=== PATIENT | female | born 1930 | race Caucasian/White ===

== ENCOUNTER 2016-10-04 15:15 | Emergency (ER) | payer BC ==
[~2016-10-04] VITALS: Ht 162.6 cm; Wt 69.0 kg
[~2016-10-04 15:15] MED LIST: ACET-1311 PO; CHOL100010 PO; CLTP PO; CMD4 PO; DOXY100C76 PO; METO50TA7 PO; PRLSR20 PO; TRAM-10 PO; TRIATAB3 PO; compounded cream
[2016-10-04 15:18] VITALS: TEMP 36.5; Ht 162.6 cm; Wt 69.0 kg
[2016-10-04] MEDS ORDERED: CEFAZOLIN SOD 1000MG/55 ML D5W IV STA (15:27)
[2016-10-04] MEDS ORDERED: CHOL20009 PO (15:47)
[2016-10-04] MEDS ORDERED: METO50TA16 PO (15:47)
[2016-10-04] MEDS ORDERED: CALCTAB7 PO (15:47)
[2016-10-04] MEDS ORDERED: ACET-1256 PO (15:49)
[2016-10-04] MEDS ORDERED: FRS/40 PO (15:53)
[2016-10-04] MEDS ORDERED: POTA20TA16 PO (15:53)
[2016-10-04 15:54] LABS: BASO % 0.6 %; BASO ABS # 0.03 K/uL (0-0.2); COMPLETE YES; EOS % 1.3 %; IG% 0.2 %; LYMPH % 21.8 %; LYMPH ABS # 1.02 K/uL (1.2-3.4); MEAN CELL VOLUME 97.6 fL (80-100); MEAN CORPUSCULAR HEMOGLOBIN 31.7 pg (25-34); MEAN CORPUSCULAR HGB CONC 32.5 g/dl (32-36); MEAN PLATELET VOLUME 8.4 fL (7.4-10.4); MONO % 26.6 %; NEUT % 49.5 %; PLATELET COUNT 281 K/uL (130-400); WHITE BLOOD COUNT 4.67 K/uL (4.8-10.8)
[2016-10-04 16:11] LABS: BUN/CREATININE RATIO 21.9 (10-20); CALCIUM 9.1 mg/dl (8.5-10.1); CREATININE 0.58 mg/dl (0.60-1.20); POTASSIUM 3.7 mmol/L (3.5-5.1)
--- NOTE | 2016-10-04 16:35 | DIAGNOSTIC IMAGING REPORT ---
Venous Doppler left leg LEFT VENOUS DOPP LOWER EXT UNILAT CLINICAL HISTORY: Pain edema TECHNIQUE: Doppler ultrasound COMPARISON STUDY: 01/26/2016 FINDINGS: Normal study IMPRESSION: Normal study Electronically signed by: Blaine Toure M.D. 10/04/2016 4:33 PM Dictated Date/Time: 10/04/2016 4:33 PM
[2016-10-04] MEDS ORDERED: CEPH500C PO (16:50)
--- NOTE | 2016-10-04 16:51 | EMERGENCY ROOM VISIT NOTE ---
History Report prepared by Sorin: Denis Lopez Under the Supervision of: Dr. Gareth Fowler D.O. First contact with patient: 15:21 Chief Complaint: INFECTION Stated Complaint: WORSENING CELLULITIS L LEG W/ DRAINAGE History of Present Illness The patient is a 85 year old female who presents to the Emergency Room with complaints of a worsening infection that began a couple of weeks ago. She rates her current pain a 5/10 in severity. She has a history of cellulitis in the past , which she was prescribed Doxycycline before, which worked. A couple of weeks ago, she was diagnosed with cellulitis in her left leg. She was given 7 days of Doxycycline, which she finished last week. However, her cellulitis has begun to worsen and spread up her leg. She denies any other abnormal symptoms. Source of History: patient Onset: a couple of weeks ago Position: leg (left) Symptom Intensity: 5/10 Quality: burning Timing: worsening Note: She has erythema to her left leg. She denies any other abnormal symptoms. Review of Systems See HPI for pertinent positives & negatives. A total of 10 systems reviewed and were otherwise negative. Past Medical & Surgical Medical Problems: (1) Asthma (2) Atrial fibrillation (3) HTN (hypertension) Family History Omitted secondary to age. Social History Smoking Status: Never Smoker Smokeless Tobacco Use: No Alcohol Use: occasionally Drug Use: none Marital Status: Occupation Status: retired Current/Historical Medications Scheduled Calcium Carbonate-Vitamin D W/ (Caltrate 600 Plus), 1 TAB PO DAILY Cephalexin Monohydrate (Keflex), 500 MG PO QID Cholecalciferol (Vitamin D), 3,000 UNIT PO DAILY Furosemide (Lasix), 40 MG PO WK Metoprolol Tartrate (Lopressor) (Lopressor), 50 MG PO BID Omeprazole (Prilosec), 20 MG PO DAILY Potassium Ext Rel (Klor-Con), 20 MEQ PO WK Triamterene/Hctz (Triamterene/Hctz 37.5-25MG), 1 TAB PO QAM Warfarin Sod (Coumadin), 3-4 MG PO UD Scheduled PRN Acetaminophen (Tylenol), 1,000 MG PO TID PRN for Pain Tramadol (Ultram), 1 TAB PO TID PRN for Pain Allergies Coded Allergies: Iodinated Diagnostic Agents (Verified Allergy, Severe, SWOLLEN LEGS WITH REDDNESS AND ITCHING, 04/30/16) Clarithromycin (Unverified Allergy, Unknown, UNKNOWN, 04/30/16) Aspirin (Verified Adverse Reaction, Mild, HX GASTRIC ULCERS, 04/30/16) NSAIDs (Unverified Adverse Reaction, Unknown, History of gastric ulcers, 04/30/16) Physical Exam Vital Signs Date Time Temp Pulse Resp B/P Pulse Ox O2 Delivery O2 Flow Rate FiO2 10/04/16 15:18 36.5 78 16 131/80 95 Room Air Physical Exam CONSTITUTIONAL/VITAL SIGNS: Reviewed / noted above. GENERAL: Non-toxic in appearance. INTEGUMENTARY: Warm, dry, and Crown. HEAD: Normocephalic. EYES: without scleral icterus or trauma. ENT/OROPHARYNX: clear and moist. LYMPHADENOPATHY/NECK: Is supple without lymphadenopathy or meningismus. RESPIRATORY: Lungs clear and equal. CARDIOVASCULAR: Regular rate and rhythm. GI/ABDOMEN: Soft and nontender. No organomegaly or pulsatile mass. No rebound or guarding. Normal bowel sounds. EXTREMITIES: Warm and well perfused. Left lower extremity is edematous and erythematous from just below the knee to just above the ankle. BACK: No CVA tenderness. NEUROLOGICAL: Intact without focal deficits. PSYCHIATRIC: normal affect. MUSCULOSKELETAL: Normally developed with good muscle tone. Medical Decision & Procedures ER Provider Diagnostic Interpretation: Radiology results as stated below per my review and radiologist interpretation: Venous Doppler left leg LEFT VENOUS DOPP LOWER EXT UNILAT CLINICAL HISTORY: Pain edema TECHNIQUE: Doppler ultrasound COMPARISON STUDY: 01/26/2016 FINDINGS: Normal study IMPRESSION: Normal study Electronically signed by: Blaine Toure M.D. 10/04/2016 4:33 PM Dictated Date/Time: 10/04/2016 4:33 PM Laboratory Results 10/04/16 15:43 Red Blood Count 4.10, Mean Corpuscular Volume 97.6, Mean Corpuscular Hemoglobin 31.7, Mean Corpuscular Hemoglobin Concent 32.5, Mean Platelet Volume 8.4, Neutrophils (%) (Auto) 49.5, Lymphocytes (%) (Auto) 21.8, Monocytes (%) (Auto) 26.6, Eosinophils (%) (Auto) 1.3, Basophils (%) (Auto) 0.6, Neutrophils # (Auto ) 2.31, Lymphocytes # (Auto) 1.02, Monocytes # (Auto) 1.24, Eosinophils # (Auto ) 0.06, Basophils # (Auto) 0.03 10/04/16 15:43 Test 10/04/16 15:43 White Blood Count 4.67 K/uL (4.8-10.8) Red Blood Count 4.10 M/uL (4.2-5.4) Hemoglobin 13.0 g/dL (12.0-16.0) Hematocrit 40.0 % (37-47) Mean Corpuscular Volume 97.6 fL (80-100) Mean Corpuscular Hemoglobin 31.7 pg (25-34) Mean Corpuscular Hemoglobin Concent 32.5 g/dl (32-36) Platelet Count 281 K/uL (130-400) Mean Platelet Volume 8.4 fL (7.4-10.4) Neutrophils (%) (Auto) 49.5 % Lymphocytes (%) (Auto) 21.8 % Monocytes (%) (Auto) 26.6 % Eosinophils (%) (Auto) 1.3 % Basophils (%) (Auto) 0.6 % Neutrophils # (Auto) 2.31 K/uL (1.4-6.5) Lymphocytes # (Auto) 1.02 K/uL (1.2-3.4) Monocytes # (Auto) 1.24 K/uL (0.11-0.59) Eosinophils # (Auto) 0.06 K/uL (0-0.5) Basophils # (Auto) 0.03 K/uL (0-0.2) RDW Standard Deviation 53.1 fL (36.4-46.3) RDW Coefficient of Variation 14.9 % (11.5-14.5) Immature Granulocyte % (Auto) 0.2 % Immature Granulocyte # (Auto) 0.01 K/uL (0.00-0.02) Anion Gap 9.0 mmol/L (3-11) Est Creatinine Clear Calc Drug Dose 65.2 ml/min Estimated GFR () 96.1 Estimated GFR (Non- 82.9 BUN/Creatinine Ratio 21.9 (10-20) Calcium Level 9.1 mg/dl (8.5-10.1) Laboratory results as stated above per my review. Medications Administered Medications (Trade) Dose Ordered Sig/Tonya Route Start Time Stop Time Status Last Admin Dose Admin Cefazolin Sodium (Ancef 1000mg/55 ml D5W) 2,000 mg NOW STAT IV 10/04/16 15:27 10/04/16 15:30 DC 10/04/16 15:55 2,000 MG ED Course 1521: Previous medical records were reviewed. The patient was evaluated in room A12. A complete history and physical examination was performed. 1527: Ordered Cefazolin Sodium 2000 mg IV 1652: On reevaluation, the patient is resting. I discussed the results and findings with the patient. She verbalized agreement of the treatment plan. She was discharged home. Medical Decision Differential diagnosis: Etiologies such as cellulitis, abscess, MRSA infection, DVT, necrotizing fasciitis, dermatitis, drug eruption, as well as others were entertained.. This is an 85-year-old female who presents to the ED with a chief complaint of cellulitis of her left lower extremity. Details listed above. The patient states that she recently completed a course of doxycycline about a week or so ago. This was for the same infection. Her improved and then have recurred. The patient denies any other significant complaints at she denies any fever or chills. No nausea or vomiting. Ultrasound of her left lower extremity does not show any evidence of DVT. CBC is unremarkable, PRP is normal. The patient was told the results. She was given IV Ancef. The patient will be discharged on Keflex, per her wishes. She would like to try outpatient antibiotics at this time. She is felt to be stable for discharge and she will return if there is worsening. Impression Primary Impression: Cellulitis of left lower extremity Scribe Attestation The scribe's documentation has been prepared under my direction and personally reviewed by me in its entirety. I confirm that the note above accurately reflects all work, treatment, procedures, and medical decision making performed by me. Departure Information Dispostion Home / Self-Care Prescriptions Cephalexin Monohydrate (Keflex) 500 Mg Cap 500 MG PO QID, #40 CAP Prov: Gareth Fowler D.O. 10/04/16 Referrals Rodríguez Coy M.D. (PCP) Forms HOME CARE DOCUMENTATION FORM, IMPORTANT VISIT INFORMATION, WORK / SCHOOL INSTRUCTIONS Patient Instructions My [facility] Additional Instructions Keflex as prescribed. Return for significant worsening or new concerns. Follow-up with your doctor for further care and evaluation in 1-2 days. Return to the emergency department for worsening or new symptoms or any concerns. You have been examined and treated today on an emergency basis only. This is not a substitute for, or an effort to provide, complete comprehensive medical care. It is impossible to recognize and treat all injuries or illnesses in a single emergency department visit. It is therefore important that you follow up closely with your doctor. Call as soon as possible for an appointment.
[2016-10-04 17:13] VITALS: BP 130/71; PULSE 74; O2SAT 97
[2016-11-14] MEDS ORDERED: CEPH500C2 PO (09:48)
[2016-12-11] MEDS ORDERED: DCL/500 PO (15:02)
[2016-12-12] MEDS ORDERED: CEPH500C2 PO (08:09)
[2017-03-31] MEDS ORDERED: CEPH500C PO (11:00)
== END 2016-10-04 17:14 | disposition home or self-care (01) ==
LOC: C.EDB 15:16 → C.EDA 17:14
DX: L03.116 Cellulitis of left lower limb (principal); I48.91 Unspecified atrial fibrillation; I10 Essential (primary) hypertension; J45.909 Unspecified asthma, uncomplicated; Z79.01 Long term (current) use of anticoagulants; Z79.899 Other long term (current) drug therapy

== ENCOUNTER → 2016-12-06 | Outpatient (CLI) | payer BC ==
[~2016-12-06] MED LIST changes: +ACET-1256 PO; -ACET-1311 PO; +CALCTAB7 PO; +CEPH500C2 PO; -CHOL100010 PO; +CHOL20009 PO; -CLTP PO; +DCL/500 PO; -DOXY100C76 PO; +METO50TA16 PO; -METO50TA7 PO; -compounded cream
--- NOTE | 2016-12-06 15:30 | MAMMOGRAPHY REPORT ---
BILATERAL DIGITAL SCREENING MAMMOGRAM WITH CAD: 12/06/2016 CLINICAL HISTORY: Routine screening. TECHNIQUE: Bilateral CC, MLO and repeat left MLO views were obtained. Current study was also evaluat ed with a Computer Aided Detection (CAD) system. COMPARISON: Comparison is made to exams dated: 12/05/2015 mammogram, 12/01/2014 mammogram, 11/18/2013 ma mmogram, 10/05/2012 mammogram, 09/26/2011 mammogram, and 09/13/2010 mammogram - [facility] nter. BREAST COMPOSITION: There are scattered areas of fibroglandular density in both breasts. FINDINGS: The exam is suboptimal given the patient in a wheelchair and needing assistance from a [employer] product support technician during the imaging. There is an 8 mm nodular asymmetry in the lateral, middle one third of the right breast on the CC vie w, thought to project superiorly on the MLO view. Additional spot compression. This is views and po ssibly ultrasound are recommended. A grouping of faint microcalcifications and associated asymmetry in the lower inner quadrant of the r ight breast, warranting additional spot magnification views. No other suspicious mass, architectural distortion or cluster of microcalcifications is seen bilatera lly. IMPRESSION: ACR BI-RADS CATEGORY 0: INCOMPLETE EVALUATION: NEED ADDITIONAL IMAGING EVALUATION The 8 mm nodular asymmetry in the lateral right breast, and faint punctate grouped microcalcification s in the medial right breast need additional imaging evaluation. The patient will be called to schedule an appointment. Approximately 10% of breast cancers are not detected with mammography. A negative mammographic report should not delay biopsy if a clinically suggestive mass is present. Kirsten Fernandez M.D. ay/:12/06/2016 14:12:20 Attending Technologist: Marlin Rueda, [facility] Ceramic Sprayer: Catarino NAIR(R)(M), [facility] letter sent: Addl Imaging 0 BI-RADS Code: ACR BI-RADS Category 0: Incomplete Evaluation: Need Additional Imaging Evaluation
== END | disposition home or self-care (01) ==
LOC: C.MAMM 13:30
PROVIDERS: ATTEND Obstetrics & Gynecology
DX: Z12.31 Encounter for screening mammogram for malignant neoplasm of breast (principal); Z51.81 Encounter for therapeutic drug level monitoring; Z79.01 Long term (current) use of anticoagulants; I10 Essential (primary) hypertension; I48.2 Chronic atrial fibrillation; M54.16 Radiculopathy, lumbar region; I87.2 Venous insufficiency (chronic) (peripheral); E55.9 Vitamin D deficiency, unspecified

== ENCOUNTER → 2016-12-06 | Outpatient (CLI) | payer BC ==
[2016-12-06 16:51] LABS: BASO % 0.3 %; BASO ABS # 0.02 K/uL (0-0.2); COMPLETE YES; HEMATOCRIT 40.7 % (37-47); IG% 0.2 %; LYMPH % 14.2 %; LYMPH ABS # 0.82 K/uL (1.2-3.4); MEAN CELL VOLUME 98.8 fL (80-100); MEAN CORPUSCULAR HEMOGLOBIN 31.3 pg (25-34); MEAN CORPUSCULAR HGB CONC 31.7 g/dl (32-36); MEAN PLATELET VOLUME 9.2 fL (7.4-10.4); MONO % 24.4 %; NEUT % 59.9 %; PLATELET COUNT 262 K/uL (130-400); RED BLOOD COUNT 4.12 M/uL (4.2-5.4); WHITE BLOOD COUNT 5.77 K/uL (4.8-10.8)
[2016-12-06 17:04] LABS: ALT/SGPT 25 U/L (12-78); AST/SGOT 21 U/L (15-37); BLOOD UREA NITROGEN 12 mg/dl (7-18); CALCIUM 9.2 mg/dl (8.5-10.1); CARBON DIOXIDE 27 mmol/L (21-32); CHLORIDE 104 mmol/L (98-107); CREATININE 0.56 mg/dl (0.60-1.20); GLUCOSE 98 mg/dl (70-99); POTASSIUM 3.7 mmol/L (3.5-5.1); SODIUM 138 mmol/L (136-145)
[2016-12-06 17:25] LABS: ALB/GLOB RATIO 1.1 (0.9-2); ALKALINE PHOSPHATASE 124 U/L (45-117)
== END | disposition home or self-care (01) ==
LOC: C.LABBC 14:34
PROVIDERS: ATTEND Internal Medicine Geriatric Medicine
DX: I10 Essential (primary) hypertension (principal); I48.2 Chronic atrial fibrillation; M54.16 Radiculopathy, lumbar region; I87.2 Venous insufficiency (chronic) (peripheral); E55.9 Vitamin D deficiency, unspecified

== ENCOUNTER → 2016-12-27 | Outpatient (CLI) | payer BC ==
[~2016-12-27] MED LIST changes: -CEPH500C2 PO
--- NOTE | 2016-12-27 15:34 | MAMMOGRAPHY REPORT ---
UNILATERAL RIGHT DIGITAL DIAGNOSTIC MAMMOGRAM TOMOSYNTHESIS: 12/27/2016 CLINICAL HISTORY: Callback from screening mammogram for right breast calcifications and right breast asymmetry. TECHNIQUE: Breast tomosynthesis in addition to standard 2D mammography was performed. Spot compress ion right CC and MLO 2-D and tomosynthesis images and spot magnification right cc and ML views were o btained. COMPARISON: Comparison is made to exams dated: 12/06/2016 mammogram, 12/05/2015 mammogram, 12/01/2014 m ammogram, 11/18/2013 mammogram, 10/05/2012 mammogram, and 09/26/2011 mammogram - [facility] nter. BREAST COMPOSITION: There are scattered areas of fibroglandular density in the right breast. FINDINGS: The previously described nodular asymmetry seen within the lateral right breast effaces to a baseline appearance on the additional spot compression views, and has the appearance of normal fibr oglandular tissue on the tomosynthesis images. No suspicious mass or architectural distortion is not ed on the additional images. Spot magnification views demonstrate grouped faint calcifications in th e right lower inner quadrant. The calcifications do not appear significantly changed compared to spo t magnification views dated 09/26/2011 and 04/01/2011 and given the long-term stability, the calcifica tions are considered benign. No new or increasing calcifications are noted in this region on the add itional views. IMPRESSION: ACR BI-RADS CATEGORY 2: BENIGN The right lateral breast asymmetry effaces on the additional views, and is benign and felt to represe nt normal fibroglandular tissue. Grouped calcifications in the right lower inner quadrant are stable dating back to the 2011 and 2010 exams, and are considered benign given long-term stability. There is no mammographic evidence of malignancy. A 1 year screening mammogram is recommended. The patient has been verbally notified of the results. Approximately 10% of breast cancers are not detected with mammography. A negative mammographic report should not delay biopsy if a clinically suggestive mass is present. Lyndsey Cifuentes M.D. /:12/27/2016 14:38:13 Film Inspector: Danitza Galarza RT(R)(Dai), [facility] letter sent: Normal 1/2 BI-RADS Code: ACR BI-RADS Category 2: Benign
== END | disposition home or self-care (01) ==
LOC: C.MAMM 13:51
PROVIDERS: ATTEND Obstetrics & Gynecology
DX: N64.9 Disorder of breast, unspecified (principal); R92.0 Mammographic microcalcification found on diagnostic imaging of breast

== ENCOUNTER → 2017-02-05 | Outpatient (CLI) | payer BC ==
[2017-02-05 17:15] LABS: HEMATOCRIT 42.1 % (37-47); MEAN CELL VOLUME 96.8 fL (80-100); MEAN CORPUSCULAR HEMOGLOBIN 29.4 pg (25-34); MEAN CORPUSCULAR HGB CONC 30.4 g/dl (32-36); MEAN PLATELET VOLUME 9.2 fL (7.4-10.4); PLATELET COUNT 302 K/uL (130-400); RED BLOOD COUNT 4.35 M/uL (4.2-5.4); WHITE BLOOD COUNT 4.71 K/uL (4.8-10.8)
[2017-02-05 17:30] LABS: BLOOD UREA NITROGEN 13 mg/dl (7-18); BUN/CREATININE RATIO 23.5 (10-20); CALCIUM 9.1 mg/dl (8.5-10.1); CARBON DIOXIDE 29 mmol/L (21-32); CHLORIDE 104 mmol/L (98-107); CREATININE 0.54 mg/dl (0.60-1.20); GLUCOSE 119 mg/dl (70-99); POTASSIUM 3.6 mmol/L (3.5-5.1); SODIUM 138 mmol/L (136-145)
== END | disposition home or self-care (01) ==
LOC: C.LABBC 14:51
PROVIDERS: ATTEND Internal Medicine Interventional Cardiology
DX: Z01.818 Encounter for other preprocedural examination (principal); Z51.81 Encounter for therapeutic drug level monitoring; Z79.01 Long term (current) use of anticoagulants

== ENCOUNTER 2017-02-19 07:36 | Day surgery (SDC) | payer BC ==
[~2017-02-19] VITALS: Ht 160 cm; Wt 66.0 kg
[2017-02-19] MEDS ORDERED: LIDOCAINE/EPINEPHRINE 1% INJ 50 ML VIAL ONE (08:12)
[2017-02-19] MEDS ORDERED: LIDOCAINE HCL 1% 20 ML VIAL ONE (08:12)
[2017-02-19] MEDS ORDERED: NURSING VERBAL MED ORDER ONE (08:45)
[2017-02-19 08:46] VITALS: BP 171/78; PULSE 67; TEMP 36.8; O2SAT 96; Ht 160 cm; Wt 66.0 kg
--- NOTE | 2017-02-19 09:16 | Procedure Note ---
Pre-Mod Sedation Assessment General Date of Moderate Sedation: Feb 19, 2017. Vital Signs: Vital Signs Past 12 Hours Date Time Temp Pulse Resp B/P (MAP) Pulse Ox O2 Delivery O2 Flow Rate FiO2 02/19/17 08:46 36.8 67 20 171/78 (109) 96 Room Air Review Cardiovascular: regular rate, rhythm, no edema Abdomen: normal bowel sounds, non tender Lungs: chest non-tender, lungs clear Airway Class: III Pre-Sedation Airway Assessment Oral Cavity: WNL Able to Visualize Vocal Cords: No Short Thick Neck: No Hx of Sleep Apnea: No Smoking Status: Never Smoker Mallampati Classification: Class III ASA Classification: Class II Procedure Planning Contraindications-for Mod Sed: None Yes Notes The planned sedation has been discussed with the patient and consent obtained. I have identified the patient, determined the appropriateness of sedation and have assessed the patient immediately prior to the procedure. All medicine(s) and interventions are by my order.
--- NOTE | 2017-02-19 09:19 | History & Physical Bridge Note ---
H&P Re-Evaluation Bridge Note: I have examined the patient, reviewed the History & Physical and in the interval since the performance of the History & Physical I have noted the following changes of clinical significance: No changes noted
[2017-02-19 09:32] VITALS: BP 171/78; PULSE 67; TEMP 36.8; O2SAT 96
[2017-02-19] MEDS ORDERED: LIDOCAINE HCL 1% 20 ML VIAL INJ ONE (10:26)
[2017-02-19] MEDS ORDERED: ORM MISCELLANEOUS MED XX ONE (10:42)
--- NOTE | 2017-02-19 10:43 | Procedure Note ---
Post-Mod Sedation Assessment General Date of Moderate Sedation Feb 19, 2017. Vital Signs: Vital Signs Past 12 Hours Date Time Temp Pulse Resp B/P (MAP) Pulse Ox O2 Delivery O2 Flow Rate FiO2 02/19/17 09:32 36.8 67 20 171/78 96 Room Air 02/19/17 08:46 36.8 67 20 171/78 (109) 96 Room Air Review - Discharge Criteria Vital Signs Stable: Yes Alert/Oriented/Conversant: Yes Returned to Baseline Mental St: Yes Nausea Absent/Minimal: Yes Pain/Discomfort/Absent/Minimal: Yes Normal/Baseline Respirations: Yes Active Bleeding?: No Pt Received D/C Instructions: Yes Prescriptions Given: None Specific Proced. D/C Criteria Distal Pulses Present (Cardiac: N/A Groin site assessed-Card Cath: N/A Voided Prior To Discharge: N/A Discharged Patients Adult Escort/Transportation: Yes
[2017-02-19] MEDS ORDERED: SODIUM CHLORIDE 0.9% 1000ML 1,000 ML IV SCH (10:45)
--- NOTE | 2017-02-19 10:50 | [facility] Operative Report ---
Operative Report Operative Date Feb 19, 2017. Pre-Operative Diagnosis Venous Insufficiency Post-Operative Diagnosis Same Procedure(s) Performed Left Leg Small Saphenous Vein Radiofrequency Ablation Surgeon Chinmay Plastic Fabricator Surgeon(s) None Estimated Blood Loss 2 Findings Dilated Left SSV Specimens None Drains None Anesthesia Local Complication(s) None Disposition Recovery Room / PACU Indications Venous insufficiency/Venous ulcerations Description of Procedure US guided access Left SSV above the ankle. Catheter inserted, positioned below the knee. SSV/popliteal junction above the knee. Tumescent injected. 1:40, 5 cycles of RFA Left SSV. No complications. Patient tolerated well. US confirmed no DVT post procedure. I attest to the content of the Intraoperative Record and any orders documented therein. Any exceptions are noted below.
--- NOTE | 2017-02-19 10:55 | Discharge Instructions ---
Discharge Instructions Procedure Procedure Date: Feb 19, 2017. Reason for Visit: Venous Insufficiency. Discharge Discharge Date: Feb 19, 2017. Discharge Diagnosis: Venous Insufficiency Last Recorded Wt (Kilograms): 66 Anesthesia Post Anesthesia Instructions: If you have had General Anesthesia or IV Sedation: * Do not drive today. * Resume driving when surgeon permits. * Do not make important decisions or sign legal documents today. * Call surgeon for: 1. Temperature elevations greater than 101 degrees F. 2. Uncontrollable pain. 3. Excessive bleeding. 4. Persistent nausea and vomiting. 5. Medication intolerance (nausea, vomiting or rash). * For nausea and vomiting use only clear liquids such as: tea, soda, bouillon until nausea subsides, then gradually increase diet as tolerated. * If you have any concerns or questions, call your surgeon's office. If physician is unavailable and it is an emergency, call 911 or go to the nearest emergency room. Instructions Activity Recommendations: limitations as noted below Recommended Home Diet: resume previous diet Allergies: Coded Allergies: Iodinated Diagnostic Agents (Verified Allergy, Severe, SWOLLEN LEGS WITH REDDNESS AND ITCHING, 02/19/17) Clarithromycin (Unverified Allergy, Unknown, UNKNOWN, 02/19/17) Aspirin (Verified Adverse Reaction, Mild, HX GASTRIC ULCERS, 02/19/17) NSAIDs (Unverified Adverse Reaction, Unknown, History of gastric ulcers, 02/19/17) Follow Up Additional Instructions: Follow instruction received from Dr. Moy' office Follow up Ultrasound as scheduled. BRIANNE wrap until ultrasound Compression stockings/wound care dressings post ultrasound Any severe pain, present to the emergency room concerned about DVT. Follow-up with: As scheduled Chhaya Alston Recommendations: Call your doctor if: * Temperature above 101 degrees * Pain not relieved by pain medicine ordered * There is increased drainage or redness from any incision * You have any unanswered questions or concerns. Your Doctors Instructions noted above were prepared by provider Vinicius Moy. Patient Signature Section: Patient Instructions Signature Page Linh Roy Patient (or Guardian) Signature/Date: I have read and understand the instructions given to me by my caregivers. Caregiver/RN/Doctor Signature/Date: The above-named patient and/or guardian has received patient instructions on this date. + Original Patient Signature Page (only) stays with chart. Please make copy for patient.
[2017-02-19 11:00] VITALS: BP 144/77; PULSE 79; TEMP 36.6; O2SAT 98
[2017-02-19 11:30] VITALS: BP 143/67; PULSE 78; O2SAT 93
[2017-02-19 12:05] VITALS: BP 163/72; PULSE 84; TEMP 37; O2SAT 99
== END 2017-02-19 12:15 | disposition home or self-care (01) ==
LOC: C.ACU 07:36
PROVIDERS: ATTEND Internal Medicine Interventional Cardiology
DX: I87.2 Venous insufficiency (chronic) (peripheral) (principal); L03.116 Cellulitis of left lower limb; I83.029 Varicose veins of left lower extremity with ulcer of unspecified site; R60.0 Localized edema; I48.2 Chronic atrial fibrillation; J45.909 Unspecified asthma, uncomplicated; I10 Essential (primary) hypertension; K21.9 Gastro-esophageal reflux disease without esophagitis; M19.90 Unspecified osteoarthritis, unspecified site; Z79.01 Long term (current) use of anticoagulants; Z98.890 Other specified postprocedural states; Z79.899 Other long term (current) drug therapy; Z96.649 Presence of unspecified artificial hip joint; Z90.89 Acquired absence of other organs; Z90.710 Acquired absence of both cervix and uterus

== ENCOUNTER → 2017-05-21 | Outpatient (CLI) | payer BC ==
[~2017-05-21] MED LIST changes: +AZIT-57 PO; +CALCCAP7 PO; -CALCTAB7 PO; +CEPH500C PO; -DCL/500 PO; +FRS/40 PO; +KFL500 PO; +LEVA45AE INH; +LPR25 PO; +LSX20 PO; +MCRK20 PO; +METO25TA56 PO; +POTA-639 PO; +PRD10 PO; +TRAMADOL ER PO; +WARF3TAB6 PO
[2017-05-21 17:32] LABS: BASO % 0.5 %; BASO ABS # 0.02 K/uL (0-0.2); EOS % 1.1 %; EOS ABS # 0.04 K/uL (0-0.5); HEMATOCRIT 38.7 % (37-47); HEMOGLOBIN 12.7 g/dL (12.0-16.0); IG# 0.02 K/uL (0.00-0.02); LYMPH % 27.6 %; LYMPH ABS # 1.05 K/uL (1.2-3.4); MEAN CELL VOLUME 96.8 fL (80-100); MEAN CORPUSCULAR HEMOGLOBIN 31.8 pg (25-34); MEAN CORPUSCULAR HGB CONC 32.8 g/dl (32-36); MEAN PLATELET VOLUME 9.2 fL (7.4-10.4); MONO % 22.1 %; MONO ABS # 0.84 K/uL (0.11-0.59); NEUT % 48.2 %; NEUT ABS # 1.83 K/uL (1.4-6.5); PLATELET COUNT 219 K/uL (130-400); RED CELL DISTRIBUTION WIDTH CV 14.8 % (11.5-14.5); RED CELL DISTRIBUTION WIDTH SD 52.9 fL (36.4-46.3)
[2017-05-21 17:47] LABS: ALBUMIN 3.5 gm/dl (3.4-5.0); ALT/SGPT 32 U/L (12-78); AST/SGOT 30 U/L (15-37); BLOOD UREA NITROGEN 16 mg/dl (7-18); CALCIUM 8.9 mg/dl (8.5-10.1); CARBON DIOXIDE 30 mmol/L (21-32); CREATININE 0.56 mg/dl (0.60-1.20); GLUCOSE 87 mg/dl (70-99); POTASSIUM 3.8 mmol/L (3.5-5.1); SODIUM 136 mmol/L (136-145)
[2017-05-21 17:58] LABS: ALKALINE PHOSPHATASE 122 U/L (45-117); TOTAL PROTEIN 7.2 gm/dl (6.4-8.2)
== END | disposition home or self-care (01) ==
LOC: C.LABBC 13:46
PROVIDERS: ATTEND Internal Medicine Geriatric Medicine
DX: E55.9 Vitamin D deficiency, unspecified (principal); I10 Essential (primary) hypertension; I48.2 Chronic atrial fibrillation; M81.0 Age-related osteoporosis without current pathological fracture; R74.8 Abnormal levels of other serum enzymes; Z51.81 Encounter for therapeutic drug level monitoring; Z79.01 Long term (current) use of anticoagulants

== ENCOUNTER → 2017-06-30 | Outpatient (CLI) | payer BC ==
[~2017-06-30] MED LIST changes: -FRS/40 PO; -KFL500 PO; -METO25TA56 PO; -POTA-639 PO; -TRAMADOL ER PO; -WARF3TAB6 PO
--- NOTE | 2017-06-30 15:49 | DIAGNOSTIC IMAGING REPORT ---
R WRIST MIN 3 VIEWS ROUTINE, HAND MIN 3 VIEWS ROUTINE HISTORY: 86 years-old Female WRIST PAIN acute right hand and wrist pain COMPARISON: None available TECHNIQUE: 4 views of the right wrist and 3 views of the right hand FINDINGS: WRIST: The bones appear moderately demineralized. 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 There is mild soft tissue swelling about the wrist without opaque foreign body, definite acute fracture or subluxation. HAND: There is at least moderate metacarpal phalangeal degenerative changes noted with severe distal interphalangeal degenerative changes and bone demineralization. There is no acute fracture or subluxation identified. IMPRESSION: 1. Demineralized appearance of the bones without acute fracture or dislocation identified. 2. Multifocal degenerative changes of the hand and wrist. 3. Mild dorsal wrist soft tissue swelling. The above report was generated using voice recognition software. It may contain grammatical, syntax or spelling errors. Electronically signed by: Miguel A Guzman M.D. 06/30/2017 3:48 PM Dictated Date/Time: 06/30/2017 3:44 PM
== END | disposition home or self-care (01) ==
LOC: C.RADBC 15:28
PROVIDERS: ATTEND Internal Medicine Geriatric Medicine
DX: M25.531 Pain in right wrist (principal)

== ENCOUNTER 2017-07-06 15:44 | Inpatient (IN) | payer BC, OTHER ==
[~2017-07-06] VITALS: Ht 160 cm; Wt 63.7 kg
[~2017-07-06 15:44] MED LIST changes: -AZIT-57 PO; -CALCCAP7 PO; -LEVA45AE INH; -LPR25 PO; -LSX20 PO; -MCRK20 PO; -PRD10 PO
[2017-07-06] MEDS ORDERED: ALBUT/IPRATROP 3MG/0.5MG NEB 3 ML VIAL INH STA (15:58)
--- NOTE | 2017-07-06 16:14 | EMERGENCY ROOM VISIT NOTE ---
History Report prepared by Sorin: Terra Lamas Under the Supervision of: Dr. Jozef Blakely D.O. First contact with patient: 15:53 Chief Complaint: SHORTNESS OF BREATH Stated Complaint: SOB,COUGH,WHEEZING Nursing Triage Summary: Pt presents with caregiver. Pt reports prod cough for "several days that got worse last night. I couldn't lay down without coughing." SOB. Weak. Caregiver states had the flu 3 weeks ago and is currently hospitalized here. History of Present Illness The patient is an 86 year old female who presents to the Emergency Room with complaints of persistent shortness of breath since yesterday. She states that she developed a cough several days ago and began experiencing shortness of breath over the last day. Per caregiver, the patient notified her PCP and was advised to come to the ED. She does not wear at home oxygen. She is taking Tramadol 100mg ER orally. She has baseline leg swelling and denies any new swelling. She has had breathing difficulties in the past due to bronchitis. She denies any history of COPD or smoking. She has a history of atrial fibrillation. She takes Coumadin. She sprained her right wrist and has a wrap on it. She received the flu shot this season. She denies any fevers, chest pain , or abdominal pain. Source of History: patient, caregiver Onset: since yesterday Position: other (global ) Quality: other (shortness of breath) Timing: other (persistent) Associated Symptoms: No fevers, No chest pain, No abdominal pain Review of Systems See HPI for pertinent positives & negatives. A total of 10 systems reviewed and were otherwise negative. Past Medical & Surgical Medical Problems: (1) Asthma (2) Atrial fibrillation (3) Bronchitis (4) HTN (hypertension) (5) Shortness of breath Surgical Problems: (1) History of cholecystectomy Family History Cancer Gallbladder disease Heart disease Hypertension No pertinent family history Social History Smoking Status: Never Smoker Smokeless Tobacco Use: No Alcohol Use: occasionally Drug Use: none Marital Status: Housing Status: lives with significant other, other (has home health assistance ) Occupation Status: retired Current/Historical Medications Scheduled Calcium Carbonate-Vitamin D (Calcium Plus Vitamin D), 2 TAB PO DAILY Cholecalciferol (Vitamin D), 3,000 UNIT PO DAILY Metoprolol Tartrate (Lopressor) (Lopressor), 50 MG PO BID Omeprazole (Prilosec), 20 MG PO DAILY Tramadol (Ultram), 1 TAB PO DAILY Triamterene/Hctz (Triamterene/Hctz 37.5-25MG), 1 TAB PO QAM Warfarin Sod (Coumadin), 4-5 MG PO UD Scheduled PRN Acetaminophen (Tylenol), 1,000 MG PO TID PRN for Pain Allergies Coded Allergies: Iodinated Diagnostic Agents (Verified Allergy, Severe, SWOLLEN LEGS WITH REDDNESS AND ITCHING, 07/06/17) Clarithromycin (Unverified Allergy, Unknown, UNKNOWN, 07/06/17) Aspirin (Verified Adverse Reaction, Mild, HX GASTRIC ULCERS, 07/06/17) NSAIDs (Unverified Adverse Reaction, Unknown, History of gastric ulcers, ) Physical Exam Vital Signs Date Time Temp Pulse Resp B/P (MAP) Pulse Ox O2 Delivery O2 Flow Rate FiO2 07/06/17 16:34 120 18 158/87 92 Room Air 07/06/17 16:28 121 07/06/17 15:52 90 Room Air 07/06/17 15:49 36.9 128 22 148/84 90 Room Air Physical Exam GENERAL: Patient is awake, alert, and in no acute distress. Patient is resting and is anxious-appearing. EYES: The conjunctivae are clear. The pupils are round and reactive. EARS, NOSE, MOUTH AND THROAT: The nose is without any evidence of any deformity. Mucous membranes are moist tongue is midline NECK: The neck is nontender and supple. RESPIRATORY: Breath sounds diminished throughout, left greater than right. Rales of both upper lung faustin. Significant tachypnea and conversational dyspnea noted. CARDIOVASCULAR: Tachycardic rate and irregular rhythm noted there no definite murmurs noted to auscultation. GASTROINTESTINAL: The abdomen is soft. Bowel sounds are present in all quadrants. Abdomen is nontender MUSCULOSKELETAL/EXTREMITIES: There is no evidence of gross deformity full range of motion is noted in the hips and shoulders. SKIN: Trace pedal edema bilaterally. NEUROLOGIC: Patient is awake alert and oriented x3 Medical Decision & Procedures ER Provider Diagnostic Interpretation: Radiology results as stated below per my review and radiologist interpretation: CHEST ONE VIEW PORTABLE HISTORY: Sepsis COMPARISON: None. FINDINGS: No pneumothorax. No pleural effusions. Diffuse interstitial thickening. The heart is moderately enlarged. Degenerative changes within the shoulders. IMPRESSION: Moderate cardiomegaly. Mild interstitial thickening which may be chronic or could be due to mild congestive change. Electronically signed by: Zenon Ji M.D. 07/06/2017 4:35 PM Dictated Date/Time: 07/06/2017 4:15 PM Laboratory Results 07/06/17 16:15 Red Blood Count 4.24, Mean Corpuscular Volume 96.0, Mean Corpuscular Hemoglobin 31.6, Mean Corpuscular Hemoglobin Concent 32.9, Mean Platelet Volume 8.9, Neutrophils (%) (Auto) 50.3, Lymphocytes (%) (Auto) 24.5, Monocytes (%) (Auto) 22.5, Eosinophils (%) (Auto) 1.6, Basophils (%) (Auto) 0.7, Neutrophils # (Auto ) 2.26, Lymphocytes # (Auto) 1.10, Monocytes # (Auto) 1.01, Eosinophils # (Auto ) 0.07, Basophils # (Auto) 0.03 Test 07/06/17 16:05 07/06/17 16:15 07/06/17 16:18 07/06/17 16:21 Influenza Type A Antigen Neg for Influ A (NEG) Influenza Type B Antigen Neg for Influ B (NEG) White Blood Count 4.49 K/uL (4.8-10.8) Red Blood Count 4.24 M/uL (4.2-5.4) Hemoglobin 13.4 g/dL (12.0-16.0) Hematocrit 40.7 % (37-47) Mean Corpuscular Volume 96.0 fL (80-100) Mean Corpuscular Hemoglobin 31.6 pg (25-34) Mean Corpuscular Hemoglobin Concent 32.9 g/dl (32-36) Platelet Count 239 K/uL (130-400) Mean Platelet Volume 8.9 fL (7.4-10.4) Neutrophils (%) (Auto) 50.3 % Lymphocytes (%) (Auto) 24.5 % Monocytes (%) (Auto) 22.5 % Eosinophils (%) (Auto) 1.6 % Basophils (%) (Auto) 0.7 % Neutrophils # (Auto) 2.26 K/uL (1.4-6.5) Lymphocytes # (Auto) 1.10 K/uL (1.2-3.4) Monocytes # (Auto) 1.01 K/uL (0.11-0.59) Eosinophils # (Auto) 0.07 K/uL (0-0.5) Basophils # (Auto) 0.03 K/uL (0-0.2) RDW Standard Deviation 48.8 fL (36.4-46.3) RDW Coefficient of Variation 13.8 % (11.5-14.5) Immature Granulocyte % (Auto) 0.4 % Immature Granulocyte # (Auto) 0.02 K/uL (0.00-0.02) Erythrocyte Sedimentation Rate 82 mm/hr (0-21) Activated Partial Thromboplast Time 41.2 SECONDS (21.0-31.0) Partial Thromboplastin Ratio 1.6 Phosphorus Level 2.5 mg/dl (2.5-4.9) Magnesium Level 1.8 mg/dl (1.8-2.4) Total Bilirubin 0.6 mg/dl (0.2-1) Aspartate Amino Transf (AST/SGOT) 28 U/L (15-37) Alanine Aminotransferase (ALT/SGPT) 29 U/L (12-78) Alkaline Phosphatase 121 U/L (45-117) Total Creatine Kinase 124 U/L (26-192) Creatine Kinase MB 3.6 ng/ml (0.5-3.6) Creatine Kinase MB Ratio 2.9 (0-3.0) C-Reactive Protein 7.44 mg/dl (0-0.29) Pro-B-Type Natriuretic Peptide 2239 pg/ml (0-1800) Total Protein 7.7 gm/dl (6.4-8.2) Albumin 3.5 gm/dl (3.4-5.0) Globulin 4.2 gm/dl (2.5-4.0) Albumin/Globulin Ratio 0.8 (0.9-2) Chemistry Specimen Hemolysis Bedside Lactic Acid Venous 1.60 mmol/L (0.90-1.70) Venous Blood pH 7.42 (7.36-7.41) Venous Blood Partial Pressure CO2 47 mmHg (38.0-50.0) Venous Blood Partial Pressure O2 37 mmHg Venous Blood HCO3 30 mmol/L Venous Blood Oxygen Saturation 68.8 % Venous Blood Base Excess 4.5 mEq/L Laboratory results per my review. Medications Administered Medications (Trade) Dose Ordered Sig/Tonya Route Start Time Stop Time Status Last Admin Dose Admin Albuterol/ Ipratropium (Duoneb) 3 ml NOW STAT INH 07/06/17 15:58 07/06/17 15:59 DC 07/06/17 16:13 3 ML Furosemide (Lasix Inj) 20 mg NOW STAT IV 07/06/17 17:14 07/06/17 17:15 DC 07/06/17 18:04 20 MG Acetaminophen (Tylenol Tab) 1,000 mg STK-MED ONCE PO 07/06/17 17:59 07/06/17 18:00 DC 07/06/17 18:04 1,000 MG Warfarin Sodium (Coumadin Tab) 4 mg [id number]@1600 PO 07/06/17 16:00 08/05/17 15:59 07/06/17 20:38 4 MG ECG Per My Interpretation Indication: SOB/dyspnea Rate (beats per minute): 125 Rhythm: atrial fibrillation Findings: peaked T-waves (anterior), no ectopy (no PVCs) Comparison ECG Date: Atrial fibrillation is new when compared to 03/29/2013 Change: Patient's EKG was interpreted by me. ED Course 1553: The patient was evaluated in room A11B. A complete history and physical examination were performed. 1558: Ordered DuoNeb 3 ml INH 1714: Ordered Lasix 20 mg IV 1716: I reassessed the patient at this time. She is feeling better and resting comfortably. I discussed the results and treatment plan with the patient. I answered all pertaining questions that she had. She expressed understanding and verbalized agreement. The patient will be further evaluated. 1723: I spoke with Dr. Maguire, [facility] hospitalist. We discussed the patient's case. The patient will be evaluated by the [facility] for further management. Medical Decision Prior records/ancillary studies reviewed. Triage Nursing notes reviewed. The patient's history was concerning for respiratory difficulties. Differential diagnosis: Etiologies such as infections, reactive airway disease, pneumonia, pneumothorax , COPD, CHF, cardiac ischemia, pulmonary embolism, musculoskeletal, gastrointestinal, as well as others were entertained. The patient is an 86-year-old female who presented to the emergency department for an evaluation of difficulty breathing. The patient presented with a family member and appears to have very significant difficulty breathing. She was hypoxic as well as tachypnea. The patient was treated with a DuoNeb. The family member states that she has had similar symptoms in the past with bronchitis. The patient's chest x-ray revealed significant cardiomegaly. Her laboratory studies lead me to believe that she is likely pulmonary edema. She was treated with Lasix in the emergency department. She was placed on supplemental oxygen. She was much improved on subsequent reevaluation. I discussed the patient's laboratory and radiographic studies with her. Because of her abnormal vital signs I also discussed this case with the on-call [place] hospitalist. They have agreed to evaluate the patient in the emergency department for further management and disposition. Medication Reconcilliation Current Medication List: was personally reviewed by me Blood Pressure Screening Patient's blood pressure: Elevated blood pressure Referred to hospitalist. Consults Time Called: 1717 Consulting Physician: Dr. Maguire [facility] hospital[facility] Returned Call: [address] Maguire [facility] hospital[facility]. We discussed the patient's case. The patient will be evaluated by the [facility] for further management. Impression Primary Impression: Pulmonary edema Additional Impressions: Hypoxia Rapid atrial fibrillation Scribe Attestation The scribe's documentation has been prepared under my direction and personally reviewed by me in its entirety. I confirm that the note above accurately reflects all work, treatment, procedures, and medical decision making performed by me. Departure Information Dispostion Being Evaluated By Hospitalist Referrals Rodríguez Coy M.D. (PCP) Patient Instructions My [facility] Problem Qualifiers Primary Impression: Pulmonary edema Chronicity: acute Qualified Codes: J81.0 - Acute pulmonary edema
[2017-07-06 16:28] LABS: BASO % 0.7 %; BASO ABS # 0.03 K/uL (0-0.2); EOS % 1.6 %; EOS ABS # 0.07 K/uL (0-0.5); HEMATOCRIT 40.7 % (37-47); HEMOGLOBIN 13.4 g/dL (12.0-16.0); IG# 0.02 K/uL (0.00-0.02); LYMPH % 24.5 %; MEAN CORPUSCULAR HEMOGLOBIN 31.6 pg (25-34); MEAN CORPUSCULAR HGB CONC 32.9 g/dl (32-36); MEAN PLATELET VOLUME 8.9 fL (7.4-10.4); MONO % 22.5 %; MONO ABS # 1.01 K/uL (0.11-0.59); NEUT % 50.3 %; NEUT ABS # 2.26 K/uL (1.4-6.5); PLATELET COUNT 239 K/uL (130-400); RED CELL DISTRIBUTION WIDTH CV 13.8 % (11.5-14.5); RED CELL DISTRIBUTION WIDTH SD 48.8 fL (36.4-46.3); WHITE BLOOD COUNT 4.49 K/uL (4.8-10.8)
--- NOTE | 2017-07-06 16:37 | DIAGNOSTIC IMAGING REPORT ---
CHEST ONE VIEW PORTABLE HISTORY: Sepsis COMPARISON: None. FINDINGS: No pneumothorax. No pleural effusions. Diffuse interstitial thickening. The heart is moderately enlarged. Degenerative changes within the shoulders. IMPRESSION: Moderate cardiomegaly. Mild interstitial thickening which may be chronic or could be due to mild congestive change. Electronically signed by: Zenon Ji M.D. 07/06/2017 4:35 PM Dictated Date/Time: 07/06/2017 4:15 PM
[2017-07-06 16:45] LABS: INR 2.2 (0.9-1.1); PTT PATIENT 41.2 SECONDS (21.0-31.0)
[2017-07-06 16:49] LABS: INFLUENZA B ANTIGEN Neg for Influ B (NEG)
[2017-07-06 16:59] LABS: ALBUMIN 3.5 gm/dl (3.4-5.0); CALCIUM 9.1 mg/dl (8.5-10.1); CKMB 3.6 ng/ml (0.5-3.6); CREATININE 0.62 mg/dl (0.60-1.20); PHOSPHORUS 2.5 mg/dl (2.5-4.9); POTASSIUM 3.2 mmol/L (3.5-5.1); TOTAL PROTEIN 7.7 gm/dl (6.4-8.2)
[2017-07-06] MEDS ORDERED: CALCCAP7 PO (17:01)
[2017-07-06] MEDS ORDERED: FUROSEMIDE 40 MG/4 ML VIAL IV STA (17:14)
[2017-07-06] MEDS ORDERED: ACETAMINOPHEN 500 MG TAB PO ONE (17:59)
[2017-07-06] MEDS ORDERED: METOPROLOL TARTRATE 1 MG/ML VIAL IV STA (18:03)
[2017-07-06] MEDS ORDERED: NITROGLYCERIN 0.4 MG SL PER TAB CHARGE SL PRN (18:15)
[2017-07-06] MEDS ORDERED: MAGNESIUM HYDROXIDE SUSP 30 ML UDC PO PRN (18:15)
[2017-07-06] MEDS ORDERED: ONDANSETRON INJ 2 MG/ML 2 ML VIAL IV PRN (18:15)
[2017-07-06] MEDS ORDERED: ALUMINUM/MAGNESIUM/SIMETH (MAALOX MAX) 30 ML UDC PO PRN (18:15)
[2017-07-06] MEDS ORDERED: POLYETHYLENE (MIRALAX) 17 GM PACK PO PRN (18:15)
[2017-07-06] MEDS ORDERED: WARFARIN SOD 4 MG TAB PO SCH (18:15)
--- NOTE | 2017-07-06 18:26 | History and Physical ---
History & Physical Date & Time of Service: Jul 06, 2017 at 18:20 Chief Complaint: Sob,Cough,Wheezing Primary Care Physician: Rodríguez Coy M.D. History of Present Illness Source: patient, caregiver This is an 86 y/o F with h/o of Permanent Afib (on Coumadin), chronic venous insufficiency, HTN, GERD who presents with worsening cough and shortness of breath x 3-4 days. She called her PCP's sales development consultant number and was directed to the ED. She is accompanied by her home nurse. She has had bronchitis a few times in the past that has caused a cough but this seems different. She does report chronic venous insufficiency s/p venous ablation. The edema has improved since and with her consistent use of compression stockings. She has not noticed any increase in swelling in the last few days. She has had to sleep sitting up over the last couple of days. She denies history of CHF. She follows with Dr. Hall. She denies fevers, chills, nausea, vomiting She denies melena, hematochezia Denies change in diet. Denies h/o of smoking or COPD Her is admitted upstairs currently. Past Medical/Surgical History Medical Problems: (1) Asthma Status: Chronic (2) Atrial fibrillation Status: Chronic (3) Bronchitis Status: Resolved (4) HTN (hypertension) Status: Chronic Surgical Problems: (1) History of cholecystectomy Status: Resolved Family History Cancer Gallbladder disease Heart disease Hypertension No pertinent family history Social History Smoking Status: Never Smoker Smokeless Tobacco Use: No Drug Use: none Marital Status: Housing status: lives with family Occupational Status: retired Immunizations History of Influenza Vaccine: Yes Influenza Vaccine Date: Feb 16, 2009 History of Tetanus Vaccine?: Unknown History of Pneumococcal: Yes Pneumococcal Date: Apr 13, 2001 History of Hepatitis B Vaccine: No Multi-Drug Resistant Organisms History of MDRO: No Allergies Coded Allergies: Iodinated Diagnostic Agents (Verified Allergy, Severe, SWOLLEN LEGS WITH REDDNESS AND ITCHING, 07/06/17) Clarithromycin (Unverified Allergy, Unknown, UNKNOWN, 07/06/17) Aspirin (Verified Adverse Reaction, Mild, HX GASTRIC ULCERS, 07/06/17) NSAIDs (Unverified Adverse Reaction, Unknown, History of gastric ulcers, ) Home Medications Scheduled Calcium Carbonate-Vitamin D (Calcium Plus Vitamin D), 2 TAB PO DAILY Cholecalciferol (Vitamin D), 3,000 UNIT PO DAILY Metoprolol Tartrate (Lopressor) (Lopressor), 50 MG PO BID Omeprazole (Prilosec), 20 MG PO DAILY Tramadol (Ultram), 1 TAB PO DAILY Triamterene/Hctz (Triamterene/Hctz 37.5-25MG), 1 TAB PO QAM Warfarin Sod (Coumadin), 4-5 MG PO UD Scheduled PRN Acetaminophen (Tylenol), 1,000 MG PO TID PRN for Pain Review of Systems Constitutional: No fever, No chills, No sweats, No weakness Eyes: No worsening of vision ENT: No hearing loss Respiratory: + cough, + shortness of breath, + dyspnea on exertion, + dyspnea at rest, No sputum, No wheezing Cardiovascular: + orthopnea, + PND, No chest pain, No edema, No palpitations Abdomen: No pain, No nausea, No vomiting, No diarrhea, No constipation Genitourinary - Female: No dysuria, No urinary frequency, No urinary urgency Neurologic: No vertigo Psychiatric: No anhedonism Hematologic / Lymphatic: No abnormal bleeding/bruising Integumentary: No rash Allergic / Immunologic: No environmental allergies Physical Exam Vital Signs Date Time Temp Pulse Resp B/P (MAP) Pulse Ox O2 Delivery O2 Flow Rate FiO2 07/06/17 16:34 120 18 158/87 92 Room Air 07/06/17 16:28 121 07/06/17 15:52 90 Room Air 07/06/17 15:49 36.9 128 22 148/84 90 Room Air General Appearance: no apparent distress Head: normocephalic, atraumatic Eyes: PERRL, EOMI ENT: hearing grossly normal Neck: no adenopathy, no JVD Respiratory/Chest: no respiratory distress, no accessory muscle use, + decreased breath sounds, + crackles, + wheezing Cardiovascular: + systolic murmur, + irregularly irregular Abdomen/GI: normal bowel sounds, non tender, soft Extremities/Musculoskelatal: no calf tenderness, no pedal edema, normal range of motion Neurologic/Psych: supervisor tunnel heading II-XII nml as tested, no motor/sensory deficits, alert, normal mood/affect, oriented x 3 Diagnostics Laboratory Results Results Past 24 Hours Test 07/06/17 16:05 07/06/17 16:15 07/06/17 16:18 07/06/17 16:21 Range/Units Influenza Type A Antigen Neg for Influ A NEG Influenza Type B Antigen Neg for Influ B NEG White Blood Count 4.49 4.8-10.8 K/uL Red Blood Count 4.24 4.2-5.4 M/uL Hemoglobin 13.4 12.0-16.0 g/dL Hematocrit 40.7 37-47 % Mean Corpuscular Volume 96.0 80-100 fL Mean Corpuscular Hemoglobin 31.6 25-34 pg Mean Corpuscular Hemoglobin Concent 32.9 32-36 g/dl Platelet Count 239 130-400 K/uL Mean Platelet Volume 8.9 7.4-10.4 fL Neutrophils (%) (Auto) 50.3 % Lymphocytes (%) (Auto) 24.5 % Monocytes (%) (Auto) 22.5 % Eosinophils (%) (Auto) 1.6 % Basophils (%) (Auto) 0.7 % Neutrophils # (Auto) 2.26 1.4-6.5 K/uL Lymphocytes # (Auto) 1.10 1.2-3.4 K/uL Monocytes # (Auto) 1.01 0.11-0.59 K/uL Eosinophils # (Auto) 0.07 0-0.5 K/uL Basophils # (Auto) 0.03 0-0.2 K/uL RDW Standard Deviation 48.8 36.4-46.3 fL RDW Coefficient of Variation 13.8 11.5-14.5 % Immature Granulocyte % (Auto) 0.4 % Immature Granulocyte # (Auto) 0.02 0.00-0.02 K/uL Erythrocyte Sedimentation Rate 82 0-21 mm/hr Prothrombin Time 22.9 9.0-12.0 SECONDS Prothromb Time International Ratio 2.2 0.9-1.1 Activated Partial Thromboplast Time 41.2 21.0-31.0 SECONDS Partial Thromboplastin Ratio 1.6 Sodium Level 135 136-145 mmol/L Potassium Level 3.2 3.5-5.1 mmol/L Chloride Level 97 98-107 mmol/L Carbon Dioxide Level 28 21-32 mmol/L Anion Gap 10.0 3-11 mmol/L Blood Urea Nitrogen 10 7-18 mg/dl Creatinine 0.62 0.60-1.20 mg/dl Est Creatinine Clear Calc Drug Dose 56.4 ml/min Estimated GFR () 93.3 Estimated GFR (Non- 80.5 BUN/Creatinine Ratio 16.2 10-20 Random Glucose 127 70-99 mg/dl Calcium Level 9.1 8.5-10.1 mg/dl Phosphorus Level 2.5 2.5-4.9 mg/dl Magnesium Level 1.8 1.8-2.4 mg/dl Total Bilirubin 0.6 0.2-1 mg/dl Aspartate Amino Transf (AST/SGOT) 28 15-37 U/L Alanine Aminotransferase (ALT/SGPT) 29 12-78 U/L Alkaline Phosphatase 121 45-117 U/L Total Creatine Kinase 124 26-192 U/L Creatine Kinase MB 3.6 0.5-3.6 ng/ml Creatine Kinase MB Ratio 2.9 0-3.0 Troponin I 0.038 0-0.045 ng/ml C-Reactive Protein 7.44 0-0.29 mg/dl Pro-B-Type Natriuretic Peptide 2239 0-1800 pg/ml Total Protein 7.7 6.4-8.2 gm/dl Albumin 3.5 3.4-5.0 gm/dl Globulin 4.2 2.5-4.0 gm/dl Albumin/Globulin Ratio 0.8 0.9-2 Chemistry Specimen Hemolysis Bedside Lactic Acid Venous 1.60 0.90-1.70 mmol/L Venous Blood pH 7.42 7.36-7.41 Venous Blood Partial Pressure CO2 47 38.0-50.0 mmHg Venous Blood Partial Pressure O2 37 mmHg Venous Blood HCO3 30 mmol/L Venous Blood Oxygen Saturation 68.8 % Venous Blood Base Excess 4.5 mEq/L Microbiology Results 07/06/17 Blood Culture, Received Pending 07/06/17 Blood Culture, Received Pending Diagnostic Radiology CHEST ONE VIEW PORTABLE HISTORY: Sepsis COMPARISON: None. FINDINGS: No pneumothorax. No pleural effusions. Diffuse interstitial thickening. The heart is moderately enlarged. Degenerative changes within the shoulders. IMPRESSION: Moderate cardiomegaly. Mild interstitial thickening which may be chronic or could be due to mild congestive change. Impression Assessment and Plan This is an 86 y/o F who presents with worsening cough/shortness of breath likely secondary to CHF exacerbation. Shortness of breath likely 2/2 CHF exacerbation, possibly from rapid afib Chest X-ray with evidence of moderate cardiomegaly and mild congestive changes. No evidence of pneumonia Lasix 20 mg daily AM Daily weights, I/O, fluid restriction, low Na diet No Formal diagnosis for CHF- Echo AM initial troponin negative- trend x 3 AM BMP Rapid AFib IV metoprolol 5 mg now Adjust PO metoprolol to 50 mg TID Continue Coumadin 5 mg daily- therapeutic INR Daily INR HTN triamterene/hctz Gerd: Omperazole Chronic pain tramadol Osteoporosis calcium, vitamin d Chronic venous insufficiency s/p ablation code: patient does not want CPR but is okay with mechanical ventilation Day team tomorrow, to confirm again with patient. Level of Care Telemetry Advanced Directives Existing Advance Directive: No Existing Living Will: No Existing Power of Spectrographic Analyst: No Existing Health Care Proxy: No Resuscitation Status DO NOT RESUSCITATE (ok with mechanical ventilation.) VTE Prophylaxis VTE Risk Assessment Done? Y/N: Yes Risk Level: Moderate Given or contraindicated: Warfarin (Coumadin) Note Supervising Note Dr. Maguire I performed a history and physical examination on the patient. I reviewed above note and agree with it. I discussed plan with APC and patient. During my face to face encounter with the patient, I answered all of the patient's questions.
[2017-07-06] MEDS ORDERED: ALBUT/IPRATROP 3MG/0.5MG NEB 3 ML VIAL INH SCH (20:00)
[2017-07-06] MEDS: POTASSIUM CHLR 10 MEQ / WTR 10 MEQ in PREMIXED WATER 100 ML IV SCH ×2 (20:37→21:42)
[2017-07-06] MEDS: WARFARIN SOD 4 MG TAB PO SCH (20:38)
[2017-07-06] MEDS: METOPROLOL TARTRATE 50 MG TAB PO SCH (20:39)
[2017-07-06 20:50] VITALS: BP 143/90; PULSE 116; O2SAT 98
[2017-07-06 20:57] VITALS: BP 144/78; PULSE 104; TEMP 36.9; O2SAT 98; Ht 160 cm; Wt 63.7 kg
[2017-07-06] MEDS ORDERED: METOPROLOL TARTRATE 50 MG TAB PO SCH (21:00)
[2017-07-06 22:26] VITALS: O2SAT 98
[2017-07-07] VITALS (9 sets, daily range): BP systolic 107–187; BP diastolic 69–96; PULSE 72–109; TEMP 36.4–36.9; O2SAT 95–100
[2017-07-07] MEDS ORDERED: TRAMADOL HCL 50 MG TAB PO STA (01:43)
[2017-07-07] MEDS ORDERED: COUGH DROP (SUGAR FREE) LOZ 24 LOZ/1 BOX LOZ PRN (02:00)
[2017-07-07 06:46] LABS: INR 2.3 (0.9-1.1)
[2017-07-07 07:19] LABS: CALCIUM 8.7 mg/dl (8.5-10.1); CREATININE 0.44 mg/dl (0.60-1.20); POTASSIUM 3.2 mmol/L (3.5-5.1)
[2017-07-07] MEDS ORDERED: TRAMADOL HCL 50 MG TAB ONE (07:57)
[2017-07-07] MEDS: TRAMADOL HCL 50 MG TAB PO SCH (07:58)
[2017-07-07] MEDS: METOPROLOL TARTRATE 50 MG TAB PO SCH ×3 (07:59→20:17)
[2017-07-07] MEDS: TRIAMTERENE/HCTZ 37.5/25MG TAB PO SCH (08:02)
[2017-07-07] MEDS: PANTOprazole SOD 40 MG TAB PO SCH (08:02)
[2017-07-07] MEDS: CHOLECALCIFEROL 1000 INTER.UNIT TAB PO SCH (08:02)
[2017-07-07] MEDS ORDERED: LEVALBUTEROL/IPRATROPIUM NEB INH PRN (08:30)
[2017-07-07] MEDS ORDERED: FUROSEMIDE INJ 20 MG in SYRINGE 0 ML IV SCH ×2 (09:00→15:00)
[2017-07-07] MEDS: IPRATROPIUM BROMIDE NEB SOLN 0.02% 2.5 ML VIAL INH PRN ×2 (09:31→23:49)
[2017-07-07] MEDS: LEVALBUTEROL 1.25MG/0.5ML NEB INH PRN ×2 (09:31→23:49)
--- NOTE | 2017-07-07 10:45 | Medical Student: [facility] ---
Med Student History & Physical Date & Time of Service: Jul 07, 2017 at 10:23 Chief Complaint: Shortness Of Breath Primary Care Physician: Rodríguez Coy M.D. History of Present Illness Source: patient, hospital records Linh is an 86 year old female with a past history of afib, HTN, and bronchitis who presented to the ED in the afternoon on 07/06/17 with a week long history of cough and dyspnea. She developed a productive cough with white phlegm and shortness of breath on 07/02/17. On 07/05/17, the cough became much worse. Ms. Roy called her PCP on 07/06/17 and he advised her to go to the ED. She reports wheezing starting this morning. Linh stated that every winter, she will typically have one episode of bronchitis, characterized by approximately a week of a productive cough. She is then subsequently placed on an antibiotic and improves afterwards. Thus far, Linh has not yet had bronchitis this winter. She denies any headaches or myalgias and denies fevers, chills, or night sweats with her cough. Her interview today was somewhat limited by shortness of breath and intermittent coughing fits. Past Medical/Surgical History Medical Problems: (1) Cellulitis of left lower extremity Status: Acute (2) Hypoxia Status: Acute (3) Pulmonary edema Status: Acute (4) Rapid atrial fibrillation Status: Acute Family History Positive family history of heart disease and hypertension. Social History Grew up in [place] Smoking Status: Never Smoker Smokeless Tobacco Use: No Alcohol Use: none Drug Use: none Marital Status: Housing status: lives with family Occupational Status: retired Immunizations History of Influenza Vaccine: Yes Influenza Vaccine Date: Feb 16, 2009 History of Tetanus Vaccine?: Unknown History of Pneumococcal: Yes Pneumococcal Date: Apr 13, 2001 History of Hepatitis B Vaccine: No Allergies Coded Allergies: Iodinated Diagnostic Agents (Verified Allergy, Severe, SWOLLEN LEGS WITH REDDNESS AND ITCHING, 07/06/17) Clarithromycin (Unverified Allergy, Unknown, UNKNOWN, 07/06/17) Aspirin (Verified Adverse Reaction, Mild, HX GASTRIC ULCERS, 07/06/17) NSAIDs (Unverified Adverse Reaction, Unknown, History of gastric ulcers, ) Medications Acetaminophen (Tylenol), 1,000 MG PO TID PRN for Pain Cholecalciferol (Vitamin D), 3,000 UNIT PO DAILY Metoprolol Tartrate (Lopressor) (Lopressor), 50 MG PO BID Omeprazole (Prilosec), 20 MG PO DAILY Tramadol (Ultram), 1 TAB PO DAILY Triamterene/Hctz (Triamterene/Hctz 37.5-25MG), 1 TAB PO QAM Warfarin Sod (Coumadin), 4-5 MG PO UD Review of Systems Constitutional: + fatigue, No fever, No chills, No sweats Respiratory: + cough, + sputum, + wheezing Abdomen: No pain, No nausea, No diarrhea, No constipation (reports constipation earlier during stay but it has resolved) Physical Exam Vital Signs (24 Hours) Date Time Temp Pulse Resp B/P (MAP) Pulse Ox O2 Delivery O2 Flow Rate FiO2 07/07/17 09:32 84 20 95 Nasal Cannula 3.0 07/07/17 08:00 Nasal Cannula 3.0 07/07/17 07:36 36.9 109 24 187/80 (115) 96 3.0 07/07/17 04:05 Nasal Cannula 3.0 07/07/17 03:58 36.5 83 18 148/88 (108) 100 Nasal Cannula 07/07/17 00:10 36.6 90 18 135/81 (99) 99 Nasal Cannula 07/07/17 00:03 Nasal Cannula 3.0 07/06/17 22:26 98 Nasal Cannula 3.0 07/06/17 20:57 36.9 104 22 144/78 98 Nasal Cannula 2.0 07/06/17 20:50 116 18 143/90 (107) 98 Nasal Cannula 3.0 07/06/17 19:00 97 20 131/78 Nasal Cannula 3.0 07/06/17 16:34 120 18 158/87 92 Room Air 07/06/17 16:28 121 07/06/17 15:52 90 Room Air 07/06/17 15:49 36.9 128 22 148/84 90 Room Air General Appearance: + moderate distress (coughing, tachypneic), + thin Head: normocephalic, atraumatic Eyes: normal inspection Neck: supple, no adenopathy, + JVD Respiratory/Chest: chest non-tender, + wheezing Cardiovascular: no gallop, no murmur, + abnormal rhythm (irregular rhythm; normal rate), + pertinent finding Abdomen/GI: normal bowel sounds, non tender, soft Extremities/Musculoskelatal: no pedal edema (was wearing compression stalkings) Neurologic/Psych: alert, normal mood/affect, oriented x 3 Skin: normal color, warm/dry, no rash Lymphatic: no adenopathy Diagnostics Laboratory Results Results Past 24 Hours Test 07/06/17 16:05 07/06/17 16:15 07/06/17 16:18 07/06/17 16:21 Range/Units Influenza Type A Antigen Neg for Influ A NEG Influenza Type B Antigen Neg for Influ B NEG White Blood Count 4.49 4.8-10.8 K/uL Red Blood Count 4.24 4.2-5.4 M/uL Hemoglobin 13.4 12.0-16.0 g/dL Hematocrit 40.7 37-47 % Mean Corpuscular Volume 96.0 80-100 fL Mean Corpuscular Hemoglobin 31.6 25-34 pg Mean Corpuscular Hemoglobin Concent 32.9 32-36 g/dl Platelet Count 239 130-400 K/uL Mean Platelet Volume 8.9 7.4-10.4 fL Neutrophils (%) (Auto) 50.3 % Lymphocytes (%) (Auto) 24.5 % Monocytes (%) (Auto) 22.5 % Eosinophils (%) (Auto) 1.6 % Basophils (%) (Auto) 0.7 % Neutrophils # (Auto) 2.26 1.4-6.5 K/uL Lymphocytes # (Auto) 1.10 1.2-3.4 K/uL Monocytes # (Auto) 1.01 0.11-0.59 K/uL Eosinophils # (Auto) 0.07 0-0.5 K/uL Basophils # (Auto) 0.03 0-0.2 K/uL RDW Standard Deviation 48.8 36.4-46.3 fL RDW Coefficient of Variation 13.8 11.5-14.5 % Immature Granulocyte % (Auto) 0.4 % Immature Granulocyte # (Auto) 0.02 0.00-0.02 K/uL Erythrocyte Sedimentation Rate 82 0-21 mm/hr Prothrombin Time 22.9 9.0-12.0 SECONDS Prothromb Time International Ratio 2.2 0.9-1.1 Activated Partial Thromboplast Time 41.2 21.0-31.0 SECONDS Partial Thromboplastin Ratio 1.6 Sodium Level 135 136-145 mmol/L Potassium Level 3.2 3.5-5.1 mmol/L Chloride Level 97 98-107 mmol/L Carbon Dioxide Level 28 21-32 mmol/L Anion Gap 10.0 3-11 mmol/L Blood Urea Nitrogen 10 7-18 mg/dl Creatinine 0.62 0.60-1.20 mg/dl Est Creatinine Clear Calc Drug Dose 56.4 ml/min Estimated GFR () 93.3 Estimated GFR (Non- 80.5 BUN/Creatinine Ratio 16.2 10-20 Random Glucose 127 70-99 mg/dl Calcium Level 9.1 8.5-10.1 mg/dl Phosphorus Level 2.5 2.5-4.9 mg/dl Magnesium Level 1.8 1.8-2.4 mg/dl Total Bilirubin 0.6 0.2-1 mg/dl Aspartate Amino Transf (AST/SGOT) 28 15-37 U/L Alanine Aminotransferase (ALT/SGPT) 29 12-78 U/L Alkaline Phosphatase 121 45-117 U/L Total Creatine Kinase 124 26-192 U/L Creatine Kinase MB 3.6 0.5-3.6 ng/ml Creatine Kinase MB Ratio 2.9 0-3.0 Troponin I 0.038 0-0.045 ng/ml C-Reactive Protein 7.44 0-0.29 mg/dl Pro-B-Type Natriuretic Peptide 2239 0-1800 pg/ml Total Protein 7.7 6.4-8.2 gm/dl Albumin 3.5 3.4-5.0 gm/dl Globulin 4.2 2.5-4.0 gm/dl Albumin/Globulin Ratio 0.8 0.9-2 Chemistry Specimen Hemolysis Bedside Lactic Acid Venous 1.60 0.90-1.70 mmol/L Venous Blood pH 7.42 7.36-7.41 Venous Blood Partial Pressure CO2 47 38.0-50.0 mmHg Venous Blood Partial Pressure O2 37 mmHg Venous Blood HCO3 30 mmol/L Venous Blood Oxygen Saturation 68.8 % Venous Blood Base Excess 4.5 mEq/L Test 07/06/17 18:30 07/07/17 00:06 07/07/17 05:58 Range/Units Urine Color YELLOW Urine Appearance CLEAR CLEAR Urine pH 5.5 4.5-7.5 Urine Specific [place] 1.015 1.000-1.030 Urine Protein NEG NEG Urine Glucose (UA) NEG NEG Urine Ketones NEG NEG Urine Occult Blood TRACE NEG Urine Nitrite NEG NEG Urine Bilirubin NEG NEG Urine Urobilinogen NEG NEG Urine Leukocyte Esterase NEG NEG Urine WBC (Auto) 1-5 0-5 /hpf Urine RBC (Auto) 0-4 0-4 /hpf Urine Hyaline Casts (Auto) 1-5 0-5 /lpf Urine Epithelial Cells (Auto) >30 0-5 /lpf Urine Bacteria (Auto) NEG NEG Troponin I 0.046 0.051 0-0.045 ng/ml Prothrombin Time 24.0 9.0-12.0 SECONDS Prothromb Time International Ratio 2.3 0.9-1.1 Sodium Level 134 136-145 mmol/L Potassium Level 3.2 3.5-5.1 mmol/L Chloride Level 98 98-107 mmol/L Carbon Dioxide Level 30 21-32 mmol/L Anion Gap 6.0 3-11 mmol/L Blood Urea Nitrogen 8 7-18 mg/dl Creatinine 0.44 0.60-1.20 mg/dl Est Creatinine Clear Calc Drug Dose 80.9 ml/min Estimated GFR () 104.5 Estimated GFR (Non- 90.1 BUN/Creatinine Ratio 18.1 10-20 Random Glucose 89 70-99 mg/dl Calcium Level 8.7 8.5-10.1 mg/dl Thyroid Stimulating Hormone (TSH) 2.110 0.300-4.500 uIu/ml Microbiology Results 07/06/17 Blood Culture - Preliminary, Resulted Gram Positive Cocci 07/06/17 Blood Culture, Received Pending Diagnostic Radiology CHEST ONE VIEW PORTABLE HISTORY: Sepsis COMPARISON: None. FINDINGS: No pneumothorax. No pleural effusions. Diffuse interstitial thickening. The heart is moderately enlarged. Degenerative changes within the shoulders. IMPRESSION: Moderate cardiomegaly. Mild interstitial thickening which may be chronic or could be due to mild congestive change. No Infiltrate, No Effusion other Impression Assessment and Plan In summary, Linh is an 86 year old woman with a history of afib, HTN, and bronchitis who presents with a week long history of worsening productive cough, shortness of breath, and wheezing. Diastolic CHF exacerbation -had a good urine output with first dose of Lasix, give a second dose in the afternoon -continue oxygen, wean off as tolerated -record daily weights -obtain BMP to assess electrolytes and BNP Acute bronchitis -take azithromycin 500 mg PO today and 250 mg PO for four days after -start on prednisone 40 mg PO daily -Xopenex and ipratropium to improve breathing GERD -continue pantoprazole 40 mg Level of Care Telemetry Advanced Directives Existing Advance Directive: No Existing Living Will: No Existing Power of Progressive Care Nurse: No Existing Health Care Proxy: No Resuscitation Status DO NOT RESUSCITATE DVT Prophylaxis warfarin (Coumadin), T.E.D. stockings
[2017-07-07] MEDS: CALCIUM 600MG + VIT D 400 IU TAB PO SCH (11:15)
[2017-07-07] MEDS: POTASSIUM CHLORIDE 20 MEQ TABCR PO SCH ×3 (11:19→20:16)
[2017-07-07] MEDS ORDERED: AZITHROMYCIN 250 MG TAB PO ONE (12:00)
[2017-07-07] MEDS: ACETAMINOPHEN 325 MG TAB PO PRN (14:09)
--- NOTE | 2017-07-07 14:44 | Progress Note ---
Subjective Date of Service: Jul 07, 2017. Subjective Pt evaluation today including: conversation w/ patient, physical exam, lab review, review of inpatient medication list Pain: no pain PO Intake: adequate Voiding: no voiding problems patient slightly depressed this AM, overnight here in the hospital, she was able to visit him her breathing is a little better, making a lot of urine this morning after Lasix still coughing, productive of white sputum labs reviewed, troponin 0.04-0.05 for three draws, CBC and BMP normal discussed using Prednisone and Zithromax for cough/bronchitis, that has helped in the past Problem List Medical Problems: (1) Cellulitis of left lower extremity Status: Acute (2) Hypoxia Status: Acute (3) Pulmonary edema Status: Acute (4) Rapid atrial fibrillation Status: Acute Review of Systems Respiratory: + cough, + sputum, + wheezing, + shortness of breath, + dyspnea on exertion All Other Systems: Reviewed and Negative Medications Current Inpatient Medications Medications (Trade) Dose Ordered Sig/Tonya Route Start Time Stop Time Status Last Admin Dose Admin Acetaminophen (Tylenol Tab) 650 mg Q4H PRN PO 07/06/17 18:15 08/05/17 18:14 07/07/17 14:09 650 MG Al Hydrox/Mg Hydrox/Simethicone (Maalox Max Susp) 15 ml Q4H PRN PO 07/06/17 18:15 08/05/17 18:14 Magnesium Hydroxide (Milk Of Magnesia Susp) 30 ml Q12H PRN PO 07/06/17 18:15 08/05/17 18:14 Ondansetron HCl (Zofran Inj) 4 mg Q6H PRN IV 07/06/17 18:15 08/05/17 18:14 Nitroglycerin (Nitrostat Tab) 0.4 mg UD PRN SL 07/06/17 18:15 08/05/17 18:14 Polyethylene (Miralax Powder Packet) 17 gm DAILY PRN PO 07/06/17 18:15 08/05/17 18:14 Tramadol HCl (Ultram Tab) 50 mg DAILY PO 07/07/17 09:00 08/06/17 08:59 07/07/17 07:58 50 MG Triamterene/HCTZ (Maxzide 37.5/25 Tab) 1 tab QAM PO 07/07/17 09:00 08/06/17 08:59 07/07/17 08:02 1 TAB Calcium/Vitamin D (Caltrate Plus Tab) 2 tab DAILY PO 07/07/17 09:00 08/06/17 08:59 Cholecalciferol (Vitamin D Tab) 3,000 inter.unit DAILY PO 07/07/17 09:00 08/06/17 08:59 07/07/17 08:02 3,000 INTER.UNIT Pantoprazole Sodium (Protonix Tab) 40 mg QAM PO 07/07/17 09:00 08/06/17 08:59 07/07/17 08:02 40 MG Warfarin Sodium (Coumadin Tab) 5 mg MoTh@1600 PO 07/07/17 16:00 08/06/17 15:59 Warfarin Sodium (Coumadin Tab) 4 mg SuTuWeFrSa@1600 PO 07/06/17 16:00 08/05/17 15:59 07/06/17 20:38 4 MG Metoprolol Tartrate (Lopressor Tab) 50 mg TID PO 07/06/17 21:00 08/05/17 20:59 07/07/17 14:10 50 MG Menthol (Nice Sania) 1 sania PRN PRN SANIA 07/07/17 02:00 08/06/17 01:59 07/07/17 02:04 1 SANIA Potassium Chloride (Klor-Con Tab) 20 meq TID PO 07/07/17 09:00 08/06/17 08:59 07/07/17 14:10 20 MEQ Ipratropium [place] (Atrovent 0.02% 0.5MG/2.5ML Neb) 0.5 mg Q6R PRN INH 07/07/17 08:45 08/06/17 08:44 07/07/17 09:31 0.5 MG Levalbuterol (Xopenex 1.25MG/ 0.5ML Neb) 1.25 mg Q6R PRN INH 07/07/17 08:45 08/06/17 08:44 07/07/17 09:31 1.25 MG Furosemide 20 mg/ Syringe 2 ml @ 4 mls/min TODAY@1500 IV 07/07/17 15:00 07/07/17 15:01 Prednisone (PredniSONE TAB) 40 mg QAM PO 07/08/17 09:00 08/07/17 08:59 Objective Vital Signs Date Time Temp Pulse Resp B/P (MAP) Pulse Ox O2 Delivery O2 Flow Rate FiO2 07/07/17 12:00 Nasal Cannula 3.0 07/07/17 11:10 36.8 83 20 127/78 (94) 100 2.0 07/07/17 09:32 84 20 95 Nasal Cannula 3.0 07/07/17 08:00 Nasal Cannula 3.0 07/07/17 07:36 36.9 109 24 187/80 (115) 96 3.0 07/07/17 04:05 Nasal Cannula 3.0 07/07/17 03:58 36.5 83 18 148/88 (108) 100 Nasal Cannula 07/07/17 00:10 36.6 90 18 135/81 (99) 99 Nasal Cannula 07/07/17 00:03 Nasal Cannula 3.0 07/06/17 22:26 98 Nasal Cannula 3.0 07/06/17 20:57 36.9 104 22 144/78 98 Nasal Cannula 2.0 07/06/17 20:50 116 18 143/90 (107) 98 Nasal Cannula 3.0 07/06/17 19:00 97 20 131/78 Nasal Cannula 3.0 07/06/17 16:34 120 18 158/87 92 Room Air 07/06/17 16:28 121 07/06/17 15:52 90 Room Air 07/06/17 15:49 36.9 128 22 148/84 90 Room Air Physical Exam General Appearance: WD/WN, no apparent distress Eyes: normal inspection, EOMI, sclerae normal ENT: normal ENT inspection, hearing grossly normal, pharynx normal Neck: supple, no adenopathy, trachea midline, + JVD Respiratory/Chest: chest non-tender, no respiratory distress, no accessory muscle use, + decreased breath sounds, + rales, + wheezing Cardiovascular: no edema, no gallop, no JVD, no murmur, + irregularly irregular Abdomen: normal bowel sounds, non tender, soft, no organomegaly Extremities: normal range of motion, non-tender, normal inspection, no pedal edema, no calf tenderness, pelvis stable Neurologic/Psychiatric: clinical nurse manager II-XII nml as tested, no motor/sensory deficits, alert, normal mood/affect, oriented x 3 Skin: normal color, warm/dry, no rash Laboratory Results Last 24 Hours Test 07/06/17 16:05 07/06/17 16:15 07/06/17 16:18 07/06/17 16:21 Influenza Type A Antigen Neg for Influ A Influenza Type B Antigen Neg for Influ B White Blood Count 4.49 K/uL Red Blood Count 4.24 M/uL Hemoglobin 13.4 g/dL Hematocrit 40.7 % Mean Corpuscular Volume 96.0 fL Mean Corpuscular Hemoglobin 31.6 pg Mean Corpuscular Hemoglobin Concent 32.9 g/dl Platelet Count 239 K/uL Mean Platelet Volume 8.9 fL Neutrophils (%) (Auto) 50.3 % Lymphocytes (%) (Auto) 24.5 % Monocytes (%) (Auto) 22.5 % Eosinophils (%) (Auto) 1.6 % Basophils (%) (Auto) 0.7 % Neutrophils # (Auto) 2.26 K/uL Lymphocytes # (Auto) 1.10 K/uL Monocytes # (Auto) 1.01 K/uL Eosinophils # (Auto) 0.07 K/uL Basophils # (Auto) 0.03 K/uL RDW Standard Deviation 48.8 fL RDW Coefficient of Variation 13.8 % Immature Granulocyte % (Auto) 0.4 % Immature Granulocyte # (Auto) 0.02 K/uL Erythrocyte Sedimentation Rate 82 mm/hr Prothrombin Time 22.9 SECONDS Prothromb Time International Ratio 2.2 Activated Partial Thromboplast Time 41.2 SECONDS Partial Thromboplastin Ratio 1.6 Sodium Level 135 mmol/L Potassium Level 3.2 mmol/L Chloride Level 97 mmol/L Carbon Dioxide Level 28 mmol/L Anion Gap 10.0 mmol/L Blood Urea Nitrogen 10 mg/dl Creatinine 0.62 mg/dl Est Creatinine Clear Calc Drug Dose 56.4 ml/min Estimated GFR () 93.3 Estimated GFR (Non- 80.5 BUN/Creatinine Ratio 16.2 Random Glucose 127 mg/dl Calcium Level 9.1 mg/dl Phosphorus Level 2.5 mg/dl Magnesium Level 1.8 mg/dl Total Bilirubin 0.6 mg/dl Aspartate Amino Transf (AST/SGOT) 28 U/L Alanine Aminotransferase (ALT/SGPT) 29 U/L Alkaline Phosphatase 121 U/L Total Creatine Kinase 124 U/L Creatine Kinase MB 3.6 ng/ml Creatine Kinase MB Ratio 2.9 Troponin I 0.038 ng/ml C-Reactive Protein 7.44 mg/dl Pro-B-Type Natriuretic Peptide 2239 pg/ml Total Protein 7.7 gm/dl Albumin 3.5 gm/dl Globulin 4.2 gm/dl Albumin/Globulin Ratio 0.8 Chemistry Specimen Hemolysis Bedside Lactic Acid Venous 1.60 mmol/L Venous Blood pH 7.42 Venous Blood Partial Pressure CO2 47 mmHg Venous Blood Partial Pressure O2 37 mmHg Venous Blood HCO3 30 mmol/L Venous Blood Oxygen Saturation 68.8 % Venous Blood Base Excess 4.5 mEq/L Test 07/06/17 18:30 07/07/17 00:06 07/07/17 05:58 07/07/17 11:49 Urine Color YELLOW Urine Appearance CLEAR Urine pH 5.5 Urine Specific [place] 1.015 Urine Protein NEG Urine Glucose (UA) NEG Urine Ketones NEG Urine Occult Blood TRACE Urine Nitrite NEG Urine Bilirubin NEG Urine Urobilinogen NEG Urine Leukocyte Esterase NEG Urine WBC (Auto) 1-5 /hpf Urine RBC (Auto) 0-4 /hpf Urine Hyaline Casts (Auto) 1-5 /lpf Urine Epithelial Cells (Auto) >30 /lpf Urine Bacteria (Auto) NEG Troponin I 0.046 ng/ml 0.051 ng/ml 0.046 ng/ml Prothrombin Time 24.0 SECONDS Prothromb Time International Ratio 2.3 Sodium Level 134 mmol/L Potassium Level 3.2 mmol/L Chloride Level 98 mmol/L Carbon Dioxide Level 30 mmol/L Anion Gap 6.0 mmol/L Blood Urea Nitrogen 8 mg/dl Creatinine 0.44 mg/dl Est Creatinine Clear Calc Drug Dose 80.9 ml/min Estimated GFR () 104.5 Estimated GFR (Non- 90.1 BUN/Creatinine Ratio 18.1 Random Glucose 89 mg/dl Calcium Level 8.7 mg/dl Thyroid Stimulating Hormone (TSH) 2.110 uIu/ml Assessment and Plan This is an 86 y/o F who presents with worsening cough/shortness of breath likely secondary to CHF exacerbation. - Acute on chronic diastolic heart failure causing acute hypoxic respiratory failure responding well to Lasix, 500cc out thus far in the morning, will give additional 20mg IV Lasix in afternoon repeat BMP and BNP tomorrow follow weights wean off oxygen as tolerated - Acute bronchitis, URI: wheezing and coarse sounds bilaterally will give Prednisone 40mg daily and Zithromax starting today levalbuterol treatments due to afib - Chronic atrial fibrillation some resting tachycardia and then HR really jumps on exertion metoprolol increased to 50mg TID on admission, continue this dose anticoagulated on Coumadin HTN triamterene/hctz Gerd: Omperazole Chronic pain tramadol Osteoporosis calcium, vitamin d Chronic venous insufficiency s/p ablation code: DNR
[2017-07-07] MEDS ORDERED: WARFARIN SOD 5 MG TAB PO SCH (16:00)
--- NOTE | 2017-07-07 17:06 | ECHOCARDIOGRAM REPORT ---
*NOTICE TO RECEIVING [employer] This information is strictly Confidential and protected under [place] law. [place] law prohibits you from making any further disclosure of this information unless further disclosure is expressly permitted by the written consent of the person to whom it pertains or is authorized by law. A general authorization for the release of medical or other information is not sufficient for this purpose. Hospital accepts no responsibility if the information is made available to any other person, INCLUDING THE PATIENT. Interpretation Summary * Conclusions -- * 1. Normal LV size. Borderline concentric LVH. * 2. Normal LV systolic function. LVEF 55-60 %. * 3. Borderline dilated RV, normal RV function. * 4. Grade II diastolic dysfunction * 5. Severe biatrial enlargement * 6. Mild mitral regurgitation * 7. Moderate TR. Severe pulmonary hypertension. Estimated PASP 65-70 mm Hg. Normal estimated CVP * 8. Compared with prior study on 09/09/2011: No significant change Procedure Details * A complete two-dimensional transthoracic echocardiogram was performed (2D, M-mode, Doppler and color flow Doppler). Left Ventricle * The left ventricle is grossly normal size. * There is normal left ventricular wall thickness. * The basal septum is thickened and angulated consistent with sigmoid septum. * Ejection Fraction = 55-60%. Right Ventricle * The right ventricle is borderline dilated. * The right ventricular systolic function is normal as assessed by tricuspid annular plane systolic excursion (TAPSE) (normal >1.5 cm). Atria * The left atrium is severely dilated. * The right atrium is severely dilated. * No ASD detected; PFO is not assessed. Mitral Valve * The mitral valve is grossly normal. * There is mild mitral annular calcification. * Mitral stenosis is absent. * There is mild mitral regurgitation. Tricuspid Valve * The tricuspid valve is not well visualized, but is grossly normal. * There is moderate tricuspid regurgitation. * Right ventricular systolic pressure is elevated at >60mmHg. Aortic Valve * The aortic valve opens well. * The aortic valve is trileaflet. * Aortic valve sclerosis mild, without significant aortic valvular stenosis. * No hemodynamically significant valvular aortic stenosis. * There is no significant aortic regurgitation. Pulmonic Valve * The pulmonary valve is inadequately visualized, but the Doppler data is adequate for interpretation. * There is no pulmonic valvular stenosis. * There is no significant pulmonary regurgitation. Great Vessels * The aortic root and proximal ascending aorta are normal sized. Pericardium/Pleural * Trivial pericardial effusion. Great Vessels * Normal inferior vena cava size and collapsability with sniff indicates a normal right atrial pressure of 3 mmHg Left Ventricular Diastolic Function * Diastolic dysfunction, Grade II, consistent with elevated left atrial pressure. MMode 2D Measurements and Calculations IVSd 1.1 cm IVSs 1.6 cm LVIDd 4.0 cm LVIDs 2.8 cm LVPWd 1.1 cm LVPWs 1.4 cm IVS/LVPW 1.1 FS 29.1 % EDV(Teich) 69.9 ml ESV(Teich) 30.4 ml EF(Teich) 56.5 % EDV(cubed) 63.8 ml ESV(cubed) 22.7 ml EF(cubed) 64.4 % % IVS thick 38.9 % % LVPW thick 33.5 % LV mass(C)d 144.7 grams LV mass(C)dI 87.0 grams/m\S\2 LV mass(C)s 145.7 grams LV mass(C)sI 87.7 grams/m\S\2 SV(Teich) 39.4 ml SI(Teich) 23.7 ml/m\S\2 SV(cubed) 41.1 ml SI(cubed) 24.7 ml/m\S\2 Ao root diam 3.0 cm Ao root area 7.0 cm\S\2 ACS 1.8 cm LA dimension 4.6 cm LA/Ao 1.6 LVOT diam 1.8 cm LVOT area 2.4 cm\S\2 LVAd ap4 24.3 cm\S\2 LVLd ap4 7.0 cm EDV(MOD-sp4) 69.5 ml EDV(sp4-el) 71.6 ml LVAs ap4 16.6 cm\S\2 LVLs ap4 6.8 cm ESV(MOD-sp4) 34.9 ml ESV(sp4-el) 34.5 ml EF(MOD-sp4) 49.8 % EF(sp4-el) 51.8 % LVAd ap2 25.5 cm\S\2 LVLd ap2 7.1 cm EDV(MOD-sp2) 73.6 ml EDV(sp2-el) 77.5 ml LVAs ap2 18.2 cm\S\2 LVLs ap2 6.8 cm ESV(MOD-sp2) 39.6 ml ESV(sp2-el) 41.3 ml EF(MOD-sp2) 46.2 % EF(sp2-el) 46.8 % LVLd %diff 1.4 % EDV(MOD-bp) 72.4 ml LVLs %diff 0.86 % ESV(MOD-bp) 36.9 ml EF(MOD-bp) 49.0 % SV(MOD-sp4) 34.6 ml SI(MOD-sp4) 20.8 ml/m\S\2 SV(MOD-sp2) 34.0 ml SI(MOD-sp2) 20.5 ml/m\S\2 SV(MOD-bp) 35.5 ml SI(MOD-bp) 21.4 ml/m\S\2 SV(sp4-el) 37.1 ml SI(sp4-el) 22.3 ml/m\S\2 SV(sp2-el) 36.2 ml SI(sp2-el) 21.8 ml/m\S\2 Doppler Measurements and Calculations MV E max eddie 125.6 cm/sec MV P1/2t max eddie 137.8 cm/sec MV P1/2t 85.0 msec MVA(P1/2t) 2.6 cm\S\2 MV dec slope 474.9 cm/sec\S\2 MV dec time 0.19 sec Ao V2 max 149.5 cm/sec Ao max PG 8.9 mmHg Ao max PG (full) 5.8 mmHg CHERYL(V,A) 1.4 cm\S\2 CHERYL(V,D) 1.4 cm\S\2 LV V1 max PG 3.1 mmHg LV V1 max 87.9 cm/sec MR max eddie 539.3 cm/sec MR max PG 116.3 mmHg TR max eddie 387.5 cm/sec
[2017-07-08] VITALS (7 sets, daily range): BP systolic 138–177; BP diastolic 74–94; PULSE 63–114; TEMP 36.5–37; O2SAT 90–99
[2017-07-08] MEDS ORDERED: TRAMADOL HCL 50 MG TAB PO STA (00:26)
[2017-07-08 07:37] LABS: HEMATOCRIT 38.4 % (37-47); HEMOGLOBIN 12.7 g/dL (12.0-16.0); MEAN CELL VOLUME 94.6 fL (80-100); MEAN CORPUSCULAR HEMOGLOBIN 31.3 pg (25-34); MEAN CORPUSCULAR HGB CONC 33.1 g/dl (32-36); MEAN PLATELET VOLUME 8.5 fL (7.4-10.4); PLATELET COUNT 249 K/uL (130-400); RED CELL DISTRIBUTION WIDTH CV 13.7 % (11.5-14.5); RED CELL DISTRIBUTION WIDTH SD 47.3 fL (36.4-46.3)
[2017-07-08 07:48] LABS: INR 2.7 (0.9-1.1)
[2017-07-08 08:00] LABS: CALCIUM 9.7 mg/dl (8.5-10.1); CREATININE 0.59 mg/dl (0.60-1.20); POTASSIUM 3.9 mmol/L (3.5-5.1)
--- NOTE | 2017-07-08 08:05 | DIAGNOSTIC IMAGING REPORT ---
CHEST 2 VIEWS ROUTINE CLINICAL HISTORY: CHF SHORTNESS OF BREATH COMPARISON STUDY: July 06, 2017 FINDINGS: Examination is rotated. The heart is enlarged. There is no focal pulmonary consolidation. There are trace pleural effusions. Advanced arthritic changes are present within the shoulders.[ IMPRESSION: Cardiomegaly. No evidence of focal pulmonary consolidation. Electronically signed by: Maxi Forrest M.D. 07/08/2017 8:04 AM Dictated Date/Time: 07/08/2017 8:03 AM
[2017-07-08] MEDS: TRAMADOL HCL 50 MG TAB PO SCH (08:14)
[2017-07-08 08:15] LABS: BASO % 2.2 %; BASO ABS # 0.08 K/uL (0-0.2); EOS % 0.3 %; EOS ABS # 0.01 K/uL (0-0.5); IG# 0.01 K/uL (0.00-0.02); LYMPH % 34.2 %; LYMPH ABS # 1.23 K/uL (1.2-3.4); MONO % 28.3 %; MONO ABS # 1.02 K/uL (0.11-0.59); NEUT % 34.7 %; NEUT ABS # 1.25 K/uL (1.4-6.5)
[2017-07-08] MEDS: METOPROLOL TARTRATE 50 MG TAB PO SCH (08:15)
[2017-07-08] MEDS: POTASSIUM CHLORIDE 20 MEQ TABCR PO SCH (08:15)
[2017-07-08] MEDS: TRIAMTERENE/HCTZ 37.5/25MG TAB PO SCH (08:15)
[2017-07-08] MEDS: CHOLECALCIFEROL 1000 INTER.UNIT TAB PO SCH (08:16)
[2017-07-08] MEDS: PANTOprazole SOD 40 MG TAB PO SCH (08:16)
[2017-07-08] MEDS: CALCIUM 600MG + VIT D 400 IU TAB PO SCH (08:21)
[2017-07-08] MEDS: WARFARIN SOD 4 MG TAB PO SCH (15:55)
[2017-07-08] MEDS: AZITHROMYCIN 250 MG TAB PO SCH (16:18)
--- NOTE | 2017-07-08 16:27 | Progress Note ---
Subjective Date of Service: Jul 08, 2017. Subjective Pt evaluation today including: conversation w/ patient, physical exam, lab review, review of inpatient medication list Pain: no pain PO Intake: adequate Voiding: no voiding problems patient feeling better today, breathing improved discussed medication changes with Lasix and metoprolol reviewed labs, stable updated family at the bedside Problem List Medical Problems: (1) Cellulitis of left lower extremity Status: Acute (2) Hypoxia Status: Acute (3) Pulmonary edema Status: Acute (4) Rapid atrial fibrillation Status: Acute Review of Systems Constitutional: + weakness, + fatigue Respiratory: + cough, + sputum, + shortness of breath, + dyspnea on exertion Neurologic: + weakness All Other Systems: Reviewed and Negative Medications Current Inpatient Medications Medications (Trade) Dose Ordered Sig/Tonya Route Start Time Stop Time Status Last Admin Dose Admin Acetaminophen (Tylenol Tab) 650 mg Q4H PRN PO 07/06/17 18:15 08/05/17 18:14 07/07/17 14:09 650 MG Al Hydrox/Mg Hydrox/Simethicone (Maalox Max Susp) 15 ml Q4H PRN PO 07/06/17 18:15 08/05/17 18:14 Magnesium Hydroxide (Milk Of Magnesia Susp) 30 ml Q12H PRN PO 07/06/17 18:15 08/05/17 18:14 Ondansetron HCl (Zofran Inj) 4 mg Q6H PRN IV 07/06/17 18:15 08/05/17 18:14 Nitroglycerin (Nitrostat Tab) 0.4 mg UD PRN SL 07/06/17 18:15 08/05/17 18:14 Polyethylene (Miralax Powder Packet) 17 gm DAILY PRN PO 07/06/17 18:15 08/05/17 18:14 Tramadol HCl (Ultram Tab) 50 mg DAILY PO 07/07/17 09:00 08/06/17 08:59 07/08/17 08:14 50 MG Calcium/Vitamin D (Caltrate Plus Tab) 2 tab DAILY PO 07/07/17 09:00 08/06/17 08:59 Cholecalciferol (Vitamin D Tab) 3,000 inter.unit DAILY PO 07/07/17 09:00 08/06/17 08:59 07/08/17 08:16 3,000 INTER.UNIT Pantoprazole Sodium (Protonix Tab) 40 mg QAM PO 07/07/17 09:00 08/06/17 08:59 07/08/17 08:16 40 MG Warfarin Sodium (Coumadin Tab) 5 mg MoTh@1600 PO 07/07/17 16:00 08/06/17 15:59 07/07/17 18:02 5 MG Warfarin Sodium (Coumadin Tab) 4 mg SuTuWeFrSa@1600 PO 07/06/17 16:00 08/05/17 15:59 07/08/17 15:55 4 MG Menthol (Nice Sania) 1 sania PRN PRN SANIA 07/07/17 02:00 08/06/17 01:59 07/07/17 02:04 1 SANIA Ipratropium Pioneer (Atrovent 0.02% 0.5MG/2.5ML Neb) 0.5 mg Q6R PRN INH 07/07/17 08:45 08/06/17 08:44 07/07/17 23:49 0.5 MG Levalbuterol (Xopenex 1.25MG/ 0.5ML Neb) 1.25 mg Q6R PRN INH 07/07/17 08:45 08/06/17 08:44 07/07/17 23:49 1.25 MG Metoprolol Tartrate (Lopressor Tab) 75 mg BID PO 07/08/17 21:00 08/05/17 20:59 Potassium Chloride (Klor-Con Tab) 20 meq DAILY PO 07/09/17 09:00 08/06/17 08:59 Prednisone (PredniSONE TAB) 30 mg QAM PO 07/09/17 09:00 08/07/17 08:59 Furosemide (Lasix Tab) 20 mg QAM PO 07/09/17 09:00 08/08/17 08:59 Azithromycin (Zithromax Tab) 250 mg QAM PO 07/08/17 16:00 07/11/17 09:01 07/08/17 16:18 250 MG Objective Vital Signs Date Time Temp Pulse Resp B/P (MAP) Pulse Ox O2 Delivery O2 Flow Rate FiO2 07/08/17 15:52 36.5 91 20 138/89 (105) 90 07/08/17 13:10 36.5 102 18 151/74 (99) 92 Room Air 07/08/17 12:44 36.6 79 18 99 07/08/17 12:00 Room Air 07/08/17 11:36 36.6 79 18 154/92 (112) 99 3.0 07/08/17 08:00 Nasal Cannula 3.0 07/08/17 07:24 Room Air 07/08/17 04:00 Nasal Cannula 3.0 07/08/17 03:42 36.6 99 20 152/77 (102) 98 Nasal Cannula 2.0 07/08/17 00:04 Nasal Cannula 3.0 07/07/17 23:53 36.4 72 20 151/96 (114) 100 Nasal Cannula 2.0 07/07/17 23:50 88 20 98 Nasal Cannula 3.0 07/07/17 20:00 Nasal Cannula 3.0 07/07/17 19:20 36.8 74 18 143/89 (107) 95 Nasal Cannula 2.0 Physical Exam General Appearance: WD/WN, no apparent distress Eyes: normal inspection, EOMI, sclerae normal ENT: normal ENT inspection, hearing grossly normal, pharynx normal Neck: supple, no adenopathy, trachea midline, + JVD Respiratory/Chest: chest non-tender, no respiratory distress, no accessory muscle use, + decreased breath sounds, + rhonchi Cardiovascular: no edema, no gallop, no murmur Abdomen: normal bowel sounds, non tender, soft, no organomegaly Extremities: normal range of motion, non-tender, normal inspection, no pedal edema, no calf tenderness, pelvis stable Neurologic/Psychiatric: supervisor fine grading II-XII nml as tested, alert, normal mood/affect, oriented x 3, + motor weakness Skin: normal color, warm/dry, no rash Laboratory Results Last 24 Hours Test 07/07/17 17:39 07/08/17 07:10 Troponin I 0.042 ng/ml White Blood Count 3.60 K/uL Red Blood Count 4.06 M/uL Hemoglobin 12.7 g/dL Hematocrit 38.4 % Mean Corpuscular Volume 94.6 fL Mean Corpuscular Hemoglobin 31.3 pg Mean Corpuscular Hemoglobin Concent 33.1 g/dl Platelet Count 249 K/uL Mean Platelet Volume 8.5 fL Neutrophils (%) (Auto) 34.7 % Lymphocytes (%) (Auto) 34.2 % Monocytes (%) (Auto) 28.3 % Eosinophils (%) (Auto) 0.3 % Basophils (%) (Auto) 2.2 % Neutrophils # (Auto) 1.25 K/uL Lymphocytes # (Auto) 1.23 K/uL Monocytes # (Auto) 1.02 K/uL Eosinophils # (Auto) 0.01 K/uL Basophils # (Auto) 0.08 K/uL RDW Standard Deviation 47.3 fL RDW Coefficient of Variation 13.7 % Immature Granulocyte % (Auto) 0.3 % Immature Granulocyte # (Auto) 0.01 K/uL Prothrombin Time 28.2 SECONDS Prothromb Time International Ratio 2.7 Sodium Level 135 mmol/L Potassium Level 3.9 mmol/L Chloride Level 95 mmol/L Carbon Dioxide Level 33 mmol/L Anion Gap 7.0 mmol/L Blood Urea Nitrogen 9 mg/dl Creatinine 0.59 mg/dl Est Creatinine Clear Calc Drug Dose 58.9 ml/min Estimated GFR () 94.8 Estimated GFR (Non- 81.8 BUN/Creatinine Ratio 15.9 Random Glucose 98 mg/dl Calcium Level 9.7 mg/dl Pro-B-Type Natriuretic Peptide 2007 pg/ml Assessment and Plan This is an 86 y/o F who presents with worsening cough/shortness of breath likely secondary to CHF exacerbation. - Acute on chronic diastolic heart failure causing acute hypoxic respiratory failure responded well to Lasix, 1600cc out thus far continue Lasix 20mg PO daily BNP going down weight down 3kg off of oxygen today, transfer to medical floor - Acute bronchitis, URI: wheezing and coarse sounds bilaterally, improved today will give Prednisone 40mg daily and Zithromax 250mg daily for 4 more days levalbuterol treatments due to afib - Chronic atrial fibrillation HR improved with metoprolol dosing metoprolol increased to 50mg TID on admission, continue this dose anticoagulated on Coumadin HTN: stop triamterene/HCTZ for Lasix, metoprolol Gerd: Omperazole Chronic pain tramadol Osteoporosis calcium, vitamin d Chronic venous insufficiency s/p ablation code: DNR
[2017-07-08] MEDS: METOPROLOL TARTRATE 25 MG TAB PO SCH (21:13)
[2017-07-08] MEDS: ACETAMINOPHEN 325 MG TAB PO PRN (21:58)
[2017-07-09 07:10] VITALS: BP 164/83; PULSE 87; TEMP 36.5; O2SAT 94
[2017-07-09] MEDS: CALCIUM 600MG + VIT D 400 IU TAB PO SCH (08:14)
[2017-07-09] MEDS: TRAMADOL HCL 50 MG TAB PO SCH (08:15)
[2017-07-09] MEDS: METOPROLOL TARTRATE 25 MG TAB PO SCH (08:17)
[2017-07-09] MEDS: PANTOprazole SOD 40 MG TAB PO SCH (08:17)
[2017-07-09] MEDS: AZITHROMYCIN 250 MG TAB PO SCH (08:18)
[2017-07-09] MEDS: CHOLECALCIFEROL 1000 INTER.UNIT TAB PO SCH (08:18)
[2017-07-09 08:20] LABS: INR 3.7 (0.9-1.1)
[2017-07-09 08:38] LABS: CALCIUM 9.6 mg/dl (8.5-10.1); CREATININE 0.59 mg/dl (0.60-1.20); POTASSIUM 3.6 mmol/L (3.5-5.1)
[2017-07-09] MEDS ORDERED: POTASSIUM CHLORIDE 20 MEQ TABCR PO SCH (09:00)
[2017-07-09] MEDS ORDERED: FUROSEMIDE 20 MG TAB PO SCH (09:00)
[2017-07-09] MEDS ORDERED: MCRK20 PO (10:53)
[2017-07-09] MEDS ORDERED: LSX20 PO (10:53)
[2017-07-09] MEDS ORDERED: LEVA45AE INH (10:53)
[2017-07-09] MEDS ORDERED: PRD10 PO (10:53)
[2017-07-09] MEDS ORDERED: LPR25 PO (10:53)
[2017-07-09] MEDS ORDERED: AZIT-57 PO (10:53)
--- NOTE | 2017-07-09 11:01 | Discharge Instructions ---
Discharge Instructions Date of Service Jul 09, 2017. Admission Reason for Admission: Acute diastolic heart failure Discharge Discharge Diagnosis / Problem: Acute diastolic heart failure, acute bronchitis , acute hypoxia Discharge Goals Goal(s): Decrease discomfort, Improve function Activity Recommendations Activity Limitations: resume your previous activity . Instructions / Follow-Up Instructions / Follow-Up Medications: - LOPRESSOR (metoprolol): dose increased to 75mg twice a day from 50mg, continue to take the 50mg tablets, I gave you script for 25mg that you will take in addition to 50mg - LASIX: 20mg in the morning, effects last 6 hours - POTASSIUM CHLORIDE: one tablet every morning, this is to offset potassium losses from lasix - PREDNISONE: will taper over the next week, tomorrow take 30mg (3 tabs) and then 07/11 take 20mg (2 tabs) daily for three days and then 10mg daily for three days - AZITHROMYCIN: 250mg daily for two more days - LEVALBUTEROL: inhaler, use as needed every 6 hours for shortness of breath or wheezing Acute bronchitis: responding well to Prednisone, Azithromycin and breathing treatments, finish treatment outlined above Acute diastolic heart failure: likely from rapid afib, HR was in the 120-130's on admission, responded well to Lasix will continue low dose Lasix at 20mg a day Atrial fibrillation: rates better controlled with increasing dose of metoprolol , will continue this dose increase at 75mg twice a day INR high today at 3.7, was therapeutic earlier in admission hold today and tomorrow and resume Coumadin on Friday at 4mg follow up with Dr. Coy for PT/INR Hypertension: please note that Triamterene/HCTZ stopped, replaced with Lasix and Lopressor dose increased to 75mg twice a day FOLLOW UP - call today or tomorrow for appointment with Dr. Coy next week for hospital follow up check PT/INR and BMP on Friday with results to Dr. Coy Current Hospital Diet Patient's current hospital diet: Low Sodium Diet (2gm Na) Discharge Diet Recommended Diet: Low Sodium Diet (2gm Na) Pending Studies Studies pending at discharge: no Medical Emergencies . Who to Call and When: Medical Emergencies: If at any time you feel your situation is an emergency, please call 911 immediately. . Non-Emergent Contact Non-Emergency issues call your: Primary Care Provider Call Non-Emergent contact if: you have any medication questions . . "Provider Documentation" section prepared by Osvaldo Valdivia. . VTE Core Measure Inpt VTE Proph given/why not?: Warfarin (Coumadin) [place] Drug Monitoring Program Search Results: no issues identified
[2017-07-09 11:18] VITALS: BP 164/83; PULSE 87; TEMP 36.5; O2SAT 94
--- NOTE | 2017-07-09 13:06 | Medical Student: [facility] ---
Med Student Progress Note Date of Service Jul 09, 2017. Subjective Pt evaluation today including: conversation w/ patient, conversation w/ family , physical exam, chart review, lab review Pain: left hip and lower back pain with ambulation PO Intake: normal diet, fluid restrictions Voiding: no voiding problems Ms. Roy is an 86 year old female on her third day of admission for diastolic CHF exacerbation and acute bronchitis. Reports not sleeping well last night on and is fatigued this morning. Says her appetite has been fair over the past 24 hours. She is urinating well with no pain and had a BM this AM. Ms. Roy states her shortness of breath is improved and is only present with ambulation. Cough is only occasional now. Denies abdominal pain. Denies fever, chills, sweats. Review of Systems Constitutional: No fever, No chills, No sweats Respiratory: + shortness of breath (improving), No cough, No sputum Cardiac: No chest pain Abdomen: No pain, No nausea, No vomiting, No diarrhea, No constipation Musculoskeletal: + joint pain Objective Vital Signs Date Time Temp Pulse Resp B/P (MAP) Pulse Ox O2 Delivery O2 Flow Rate FiO2 07/09/17 11:18 36.5 87 18 94 Nasal Cannula 07/09/17 09:33 Room Air 07/09/17 07:10 36.5 87 18 164/83 (110) 94 Room Air 07/08/17 22:40 36.9 79 18 149/94 (112) 92 Room Air 07/08/17 21:14 114 147/84 (105) 07/08/17 20:00 Room Air 07/08/17 16:00 Room Air 07/08/17 15:52 36.5 91 20 138/89 (105) 90 07/08/17 13:10 36.5 102 18 151/74 (99) 92 Room Air 07/08/17 12:44 36.6 79 18 99 Physical Exam General Appearance: WD/WN, no apparent distress ENT: hearing grossly normal Neck: supple, no adenopathy Respiratory/Chest: chest non-tender, + wheezing Cardiovascular: + JVD, + irregularly irregular Abdomen: normal bowel sounds, non tender, soft Extremities: + swelling (improved) Neurologic/Psychiatric: alert, normal mood/affect, oriented x 3 Skin: normal color Laboratory Results Last 24 Hours Test 07/09/17 07:38 Prothrombin Time 37.9 SECONDS Prothromb Time International Ratio 3.7 Sodium Level 134 mmol/L Potassium Level 3.6 mmol/L Chloride Level 96 mmol/L Carbon Dioxide Level 33 mmol/L Anion Gap 6.0 mmol/L Blood Urea Nitrogen 12 mg/dl Creatinine 0.59 mg/dl Est Creatinine Clear Calc Drug Dose 59.2 ml/min Estimated GFR () 94.8 Estimated GFR (Non- 81.8 BUN/Creatinine Ratio 20.7 Random Glucose 83 mg/dl Calcium Level 9.6 mg/dl Assessment and Plan Assessment and Plan: Ms. Roy is an 86-year-old female with a history of afib who presented to the emergency department three days ago with a week long history of worsening productive cough and shortness of breath. She was diagnosed with diastolic CHF exacerbation and acute bronchitis and was given Lasix and azithromycin. Diastolic CHF exacerbation -improved - decreased LE edema, coughing, dyspnea -daily weight today was 140 lbs which Ms. Roy says is consistent with her typical home weights. Acute bronchitis -tolerating azithromycin well -improved cough and dyspnea Afib -stable -INR - 3.7 on 07/09; hold Coumadin today Plan for discharge today. -Take Lasix 20 mg po qAM and one tablet of potassium chloride 20 meq qAM -Continue to take azithromycin for two more days after 07/09/17. -Taper prednisone - take 30 mg po on 07/10/17, then take 20 mg po qD from - 07/13/17 (three doses of 20 mg of prednisone), and then take 10 mg po qD from 07/14/17 - 07/16/17 (three doses of 10 mg). -Levalbuterol q6h prn for dyspnea or wheezing -Lopressor dose increased to 75 mg from 50 mg and triamterene/HCTZ stopped ( controlling HTN with lopressor and lasix) -INR is elevated at 3.7, therefore hold Coumadin on 07/09 and 07/10. Resume on at 4 mg po. -follow up with PCP Discharge planning: home with [facility]
--- NOTE | 2017-07-10 07:46 | Discharge Summary ---
Discharge Summary Date of Service Jul 09, 2017. Discharge Summary Admission Date: Jul 06, 2017 at 18:12 Discharge Date: Jul 09, 2017 Discharge Disposition: Home with services Principal Diagnosis: Acute diastolic heart failure Problems/Secondary Diagnoses: Atrial fibrillation with RVR Acute bronchitis Acute hypoxic respiratory failure Immunizations: Have You Had Influenza Vaccine: Yes Influenza Vaccine Date: Feb 16, 2009 History of Tetanus Vaccine?: Unknown History of Pneumococcal: Yes Pneumococcal Date: Apr 13, 2001 History of Hepatitis B Vaccine: No Procedures: none Consultations: none Medication Reconciliation New Medications: Levalbuterol Tartrate (Levalbuterol Tartrate Hfa) 45 Mcg/Act Aer 2 PUFFS INH Q6 PRN for SOB/Wheezing, #1 INHALER 1 Refill Prednisone (Prednisone) 10 Mg Tab 30 MG PO UD for 7 Days, #12 TABS 0 Refills start 07/10, take 30mg (3 tabs) then 07/11 take 20mg (2 tabs) daily x 3 days then 10mg daily x 3 days and stop Azithromycin (Azithromycin) 250 Mg Tab 250 MG PO QAM, #2 TAB 0 Refills Furosemide (Furosemide) 20 Mg Tab 20 MG PO QAM, #30 TAB 1 Refill Metoprolol Tartrate (Lopressor) 25 Mg Tab 25 MG PO BID, #60 TAB 3 Refills take 25mg in addition to the 50mg for total of 75mg twice a day Potassium Chloride (Klor-Con M20) 20 Meq Tabcr 20 MEQ PO DAILY, #30 TABS 1 Refill Continued Medications: Acetaminophen (Tylenol) 500 Mg Tab 1000 MG PO TID PRN for Pain, TAB Cholecalciferol (Vitamin D) 2,000 Unit Tab 3000 UNIT PO DAILY Metoprolol Tartrate (Lopressor) (Lopressor) 50 Mg Tab 50 MG PO BID, TAB Omeprazole (Prilosec) 20 Mg Capcr 20 MG PO DAILY Tramadol (Ultram) 50 Mg Tab 1 TAB PO DAILY, TAB Warfarin Sod (Coumadin) 4 Mg Tab 4-5 MG PO UD Friday and 5 mg rest of days 4mg Discontinued Medications: Triamterene/Hctz (Triamterene/Hctz 37.5-25MG) 1 Tab Tab 1 TAB PO QAM, TAB Discharge Exam Patient feeling well, breathing comfortably on room air, ambulating independently in her room. Minimal cough, has nearly resolved. Feels ready to go home. Long discussion with patient and her family about discharge plan, about medications changes. All questions answered. Review of Systems: Constitutional: + weakness, No fever, No chills, No sweats, No weight loss, No fatigue, No problem reported Eyes: No worsening of vision, No eye pain, No redness, No discharge, No diplopia, No problem reported ENT: No hearing loss, No unusual epistaxis, No nasal symptoms, No sore throat, No tinnitus, No dental problems, No trouble swallowing, No problem reported Respiratory: + cough, + dyspnea on exertion, No sputum, No wheezing, No shortness of breath, No dyspnea at rest, No hemoptysis, No problem reported Cardiovascular: No chest pain, No orthopnea, No PND, No edema, No claudication, No palpitations, No problem reported Abdomen: No pain, No nausea, No vomiting, No diarrhea, No constipation, No GI bleeding, No problem reported Musculoskeletal: No joint pain, No muscle pain, No swelling, No calf pain, No problem reported Genitourinary - Female: No dysuria, No urinary frequency, No urinary urgency , No urinary incontinence, No urinary retention, No hematuria Neurologic: No memory loss, No paralysis, No weakness, No numbness/tingling , No vertigo, No balance problems, No problem reported Psychiatric: No depression symptoms, No anhedonism, No anxiety, No insomnia , No substance abuse, No problem reported Endocrine: No fatigue, No excessive thirst, No excessive urination, No problem reported Hematologic / Lymphatic: No abnormal bleeding/bruising, No clotting problems , No swollen lymph nodes, No night sweats, No problem reported Integumentary: No rash, No itch, No new/changing skin lesions, No color change, No bleeding, No problem reported Physical Exam: General Appearance: WD/WN, no apparent distress Eyes: normal inspection, EOMI, sclerae normal ENT: normal ENT inspection, hearing grossly normal, pharynx normal Neck: supple, no adenopathy, no JVD, trachea midline Respiratory/Chest: chest non-tender, lungs clear, normal breath sounds, no respiratory distress, no accessory muscle use Cardiovascular: no edema, no gallop, no JVD, no murmur, normal peripheral pulses, + irregularly irregular Abdomen / GI: normal bowel sounds, non tender, soft, no organomegaly Extremities: normal inspection, no calf tenderness, normal capillary refill , no pedal edema, normal range of motion Neurologic/Psychiatric: 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 - Acute on chronic diastolic heart failure causing acute hypoxic respiratory failure responded well to Lasix, 1600cc out during admission continue Lasix 20mg PO daily on discharge with KCl 20mEq daily check BMP later this week and then at discretion of PCP to follow potassium BNP going down weight down 3kg off of oxygen for two days prior to admission - Acute bronchitis, URI: wheezing and coarse sounds bilaterally on admission, resolved on day of discharge discharge on Prednisone taper over next 7 days, Azithromycin for 2 more days levalbuterol treatments due to afib, provide with inhaler on discharge - Chronic atrial fibrillation, episodes of RVR on admission HR improved with metoprolol dosing metoprolol increased to 75mg BID from 50mg BID, good HR control INR jumped to 3.7 on day of discharge instructed to hold Coumadin for 2 days and then resume on 07/11 follow up PT/INR with PCP HTN: stop triamterene/HCTZ, replace with Lasix, increase Metoprolol to 75mg BID Gerd: Omperazole Chronic pain tramadol Osteoporosis calcium, vitamin d Chronic venous insufficiency s/p ablation code: DNR Total Time Spent: Greater than 30 minutes This includes examination of the patient, discharge planning, medication reconciliation, and communication with other providers. Discharge Instructions Please refer to the electronic Patient Visit Report (Discharge Instructions) for additional information. Follow-Up Dr. Rodríguez Coy next week for hospital follow up Additional Copies To Rodríguez Coy M.D.
== END 2017-07-09 11:45 | disposition home health service (06) | DRG 291 ==
LOC: C.EDB 15:45 → C.2T 18:12 → ENRESERV 18:41 → C.2T 07-07 19:11 → ENRESERV 07-08 11:41 → C.MS2W 07-08 13:13
PROVIDERS: ADMIT Internal Medicine Sports Medicine; ATTEND Internal Medicine
DX: I50.33 Acute on chronic diastolic (congestive) heart failure (principal); J96.01 Acute respiratory failure with hypoxia; I48.2 Chronic atrial fibrillation; I11.0 Hypertensive heart disease with heart failure; J20.9 Acute bronchitis, unspecified; J06.9 Acute upper respiratory infection, unspecified; G89.29 Other chronic pain; K21.9 Gastro-esophageal reflux disease without esophagitis; I87.2 Venous insufficiency (chronic) (peripheral); M81.0 Age-related osteoporosis without current pathological fracture; Z66 Do not resuscitate; Z79.01 Long term (current) use of anticoagulants; Z79.899 Other long term (current) drug therapy; Z88.6 Allergy status to analgesic agent; Z91.041 Radiographic dye allergy status

== ENCOUNTER → 2017-07-11 | Outpatient (CLI) | payer BC ==
[~2017-07-11] MED LIST changes: +AZIT-57 PO; -CEPH500C PO; +LEVA45AE INH; +LPR25 PO; +LSX20 PO; +MCRK20 PO; +PRD10 PO; -TRIATAB3 PO
[2017-07-11 14:12] LABS: BLOOD UREA NITROGEN 13 mg/dl (7-18); CALCIUM 9.4 mg/dl (8.5-10.1); CARBON DIOXIDE 30 mmol/L (21-32); CREATININE 0.58 mg/dl (0.60-1.20); GLUCOSE 79 mg/dl (70-99); POTASSIUM 3.7 mmol/L (3.5-5.1); SODIUM 136 mmol/L (136-145)
[2017-07-11 14:44] LABS: INR 3.9 (0.9-1.1)
== END | disposition home or self-care (01) ==
LOC: C.LABSPEC 13:40
PROVIDERS: ATTEND Internal Medicine Geriatric Medicine
DX: I48.2 Chronic atrial fibrillation (principal)

== ENCOUNTER → 2017-08-04 | Outpatient (CLI) | payer BC ==
[2017-08-04 12:30] LABS: INR 4.8 (0.9-1.1)
[2017-08-04 12:56] LABS: BLOOD UREA NITROGEN 14 mg/dl (7-18); CALCIUM 9.3 mg/dl (8.5-10.1); CARBON DIOXIDE 29 mmol/L (21-32); CREATININE 0.56 mg/dl (0.60-1.20); GLUCOSE 94 mg/dl (70-99); POTASSIUM 3.7 mmol/L (3.5-5.1); SODIUM 138 mmol/L (136-145)
--- NOTE | 2017-08-22 09:59 | CODING QUERY NO DIAGNOSIS ---
TREATMENT RENDERED WITHOUT A DIAGNOSIS To promote full compliance with coding requirements relating to patient care, physician participation is requested in all cases of talent acquisition administrator uncertainty. Please assist us with providing a diagnosis/symptom for the test(s) below: A diagnosis/symptom was not documented on your Order. A valid diagnosis/symptom is required to bill all insurances. Please remember that we are unable to code a diagnosis of rule out, probable, possible, questionable, or suspected. Tests that require a diagnosis: DOS: 08/04/17 * PT/INR DIAGNOSIS: * PARTIAL RENAL PROFILE DIAGNOSIS: Provider Signature: Date: Thank you Estephania Dawkins [facility] Once completed, please kindly fax back to [phone] For questions please call [phone]
--- NOTE | 2017-09-05 09:44 | CODING QUERY NO DIAGNOSIS ---
Valid Physician Order Needed A valid physician order must be submitted in order to properly bill for the service(s) provided, including date of service(s), valid diagnosis, and physician signature. If these tests are done on a recurring basis the original physican order must be submitted in order to code and bill for the service(s) provided. Please fax us the original, signed physician order so that we may expedite billing to [phone] DOS 08/04/17 * PT/INR * PARTIAL RENAL PROFILE Thank you Estephania [facility] Information [facility]
== END | disposition home or self-care (01) ==
LOC: C.LABSPEC 12:04
PROVIDERS: ATTEND Internal Medicine Geriatric Medicine
DX: I10 Essential (primary) hypertension (principal)

== ENCOUNTER → 2017-08-11 | Outpatient (CLI) | payer BC ==
[2017-08-11 17:13] LABS: BLOOD UREA NITROGEN 11 mg/dl (7-18); CALCIUM 8.8 mg/dl (8.5-10.1); CARBON DIOXIDE 27 mmol/L (21-32); CREATININE 0.63 mg/dl (0.60-1.20); GLUCOSE 134 mg/dl (70-99); POTASSIUM 3.4 mmol/L (3.5-5.1); SODIUM 139 mmol/L (136-145)
== END | disposition home or self-care (01) ==
LOC: C.LABBC 13:59
PROVIDERS: ATTEND Physician Assistant Medical
DX: I07.1 Rheumatic tricuspid insufficiency (principal); I87.2 Venous insufficiency (chronic) (peripheral); I50.31 Acute diastolic (congestive) heart failure

== ENCOUNTER → 2017-09-25 | Outpatient (CLI) | payer BC ==
[2017-09-25 18:08] LABS: BLOOD UREA NITROGEN 14 mg/dl (7-18); CALCIUM 8.9 mg/dl (8.5-10.1); CARBON DIOXIDE 31 mmol/L (21-32); CREATININE 0.68 mg/dl (0.60-1.20); GLUCOSE 92 mg/dl (70-99); SODIUM 138 mmol/L (136-145)
== END | disposition home or self-care (01) ==
LOC: C.LAB1850 15:58
PROVIDERS: ATTEND Physician Assistant
DX: I50.31 Acute diastolic (congestive) heart failure (principal)

== ENCOUNTER 2017-12-11 11:01 | Inpatient (IN) | payer BC, OTHER ==
[~2017-12-11] VITALS: Ht 160 cm; Wt 69.0 kg
[2017-12-11] MEDS ORDERED: WARF3TAB6 PO (11:32)
[2017-12-11] MEDS ORDERED: TRAMADOL ER PO (11:32)
[2017-12-11] MEDS ORDERED: FRS/40 PO (11:32)
[2017-12-11] MEDS ORDERED: METO25TA56 PO (11:50)
[2017-12-11] MEDS ORDERED: LEVA45AE INH (11:50)
[2017-12-11] MEDS ORDERED: POTA-639 PO (11:50)
--- NOTE | 2017-12-11 12:18 | EMERGENCY ROOM VISIT NOTE ---
History Report prepared by Sorin: Olivia Griggs Under the Supervision of: Zenia HaganO. First contact with patient: 12:02 Chief Complaint: SHOULDER PAIN Stated Complaint: R ARM/SHOULDER PAIN, SWOLLEN ELBOW History of Present Illness The patient is a 87 year old female who presents to the Emergency Room with complaints of right elbow and shoulder pain and swelling that began earlier this morning. 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 Her aid reports she has been applying heat to the patient's right shoulder and has been resting. She states the patient called her last night and told her that her shoulder was hurting again and this morning, her right arm was swollen from her shoulder to her elbow. She notes that whenever the patient eats at the island in the kitchen , she has to push against it to get out of her chair. She believes this may be the cause of the patient's injury. Her aid states that 10 years ago, the patient fell and broke her right shoulder. Her aid denies any recent falls, recent trauma, or anything different. Source of History: other (patient's aid) Onset: earlier this morning Position: shoulder (right), elbow (right) Note: Negative recent falls, recent trauma, or anything different Review of Systems See HPI for pertinent positives & negatives. A total of 10 systems reviewed and were otherwise negative. Past Medical & Surgical Medical Problems: (1) Asthma (2) Atrial fibrillation (3) Bronchitis (4) Cellulitis (5) HTN (hypertension) (6) Right arm pain (7) Shortness of breath Surgical Problems: (1) History of cholecystectomy Family History Cancer Gallbladder disease Heart disease Hypertension No pertinent family history Social History Smoking Status: Never Smoker Alcohol Use: occasionally Drug Use: none Marital Status: Housing Status: lives with significant other, other Occupation Status: retired Current/Historical Medications Scheduled Cholecalciferol (Vitamin D), 3,000 UNIT PO QAM Furosemide (Lasix), 40 MG PO UD Metoprolol Tartrate (Lopressor), 25 MG PO BID Metoprolol Tartrate (Lopressor) (Lopressor), 50 MG PO BID Metoprolol Tartrate (Lopressor) (Lopressor), 25 MG PO BID Omeprazole (Prilosec), 20 MG PO QAM Potassium Chloride (Klor-Con M20), 20 MEQ PO DAILY Potassium Ext Rel (Klor-Con), 20 MEQ PO DAILY Warfarin Sod (Coumadin), 4 MG PO UD Warfarin Sod (Jantoven), 3 MG PO UD [Tramadol Er], 100 MG PO QAM Scheduled PRN Acetaminophen (Tylenol), 1,000 MG PO TID PRN for Pain Levalbuterol Tartrate (Levalbuterol Tartrate Hfa), 2 PUFFS INH Q6H PRN for SOB/ Wheezing Tramadol (Ultram), 1 TAB PO HS PRN for Pain Allergies Coded Allergies: Iodinated Diagnostic Agents (Verified Allergy, Severe, SWOLLEN LEGS WITH REDDNESS AND ITCHING, 12/11/17) Clarithromycin (Unverified Allergy, Unknown, UNKNOWN, 12/11/17) Desogestrel (Unverified Adverse Reaction, Severe, SEVERE SWELLING IN LEGS , 12/11/17) Ethinyl Estradiol (Unverified Adverse Reaction, Severe, SEVERE SWELLING IN LEGS, 12/11/17) Aspirin (Verified Adverse Reaction, Mild, HX GASTRIC ULCERS, 12/11/17) NSAIDs (Unverified Adverse Reaction, Unknown, History of gastric ulcers, ) Physical Exam Vital Signs Date Time Temp Pulse Resp B/P (MAP) Pulse Ox O2 Delivery O2 Flow Rate FiO2 12/11/17 18:23 105 18 154/75 95 Room Air 12/11/17 16:45 93 16 150/80 96 Room Air 12/11/17 14:53 81 16 139/77 97 Room Air 12/11/17 13:24 54 18 149/59 96 Room Air 12/11/17 13:13 116 19 139/89 93 Room Air 12/11/17 11:05 37.3 58 18 147/88 96 Room Air Physical Exam GENERAL: alert, well appearing, well nourished, no distress, non-toxic EYE EXAM: normal conjunctiva, PERRL and EOM's grossly intact OROPHARYNX: no exudate, no erythema, lips, buccal mucosa, and tongue normal and mucous membranes are moist NECK: supple, no nuchal rigidity, no adenopathy, non-tender LUNGS: Clear to auscultation. Normal chest wall mechanics HEART: no murmurs, S1 normal and S2 normal ABDOMEN: abdomen soft, non-tender, normo-active bowel sounds, no masses, no rebound or guarding. BACK: Back is symmetrical on inspection and there is no deformity, no midline tenderness, no CVA tenderness. SKIN: no rashes and no bruising UPPER EXTREMITIES: RUE edema noted in the area of the right elbow. No overlying erythema, no bony tenderness. Decreased active and passive supination and pronation secondary to pain. Edema in the right wrist and hand. No bony tenderness. FROM otherwise. Small area of erythema noted on the distal ventral right forearm. No obvious trauma or bite. Right shoulder nontender to palpation. No obvious dislocation. No evidence of trauma. LUE is normal, FROM, no edema. LOWER EXTREMITIES: BLE have chronic venous stasis changes. No edema, normal pulses, FROM NEURO EXAM: Normal sensorium, cranial nerves II-XII grossly intact, normal speech, no gross weakness of arms, no gross weakness of legs. Gross sensation intact. Medical Decision & Procedures ER Provider Diagnostic Interpretation: Radiology results have been interpreted by the radiologist and reviewed by me. R SHOULDER MIN 2 VIEWS ROUTINE HISTORY: 87 years-old Female Right shoulder pain acute right shoulder pain status post fall COMPARISON: Chest radiographs of same day TECHNIQUE: 3 views of the right shoulder FINDINGS: Severe osteoarthritis about the right shoulder. Moderate osteoarthritis of the AC joint. No acute fracture or dislocation. Cardiomegaly with pulmonary vascular congestion. 2.9 cm calcified body again noted projecting over the upper lateral right chest wall. This may reflect a calcified lymph node however is indeterminate. Moderate bone demineralization. IMPRESSION: No acute fracture or dislocation identified. The above report was generated using voice recognition software. It may contain grammatical, syntax or spelling errors. Electronically signed by: Miguel A Guzman M.D. 12/11/2017 12:43 PM R ELBOW MIN 3 VIEWS ROUTINE HISTORY: 87 years-old Female Right elbow swelling acute right elbow pain and swelling COMPARISON: None available TECHNIQUE: 3 views of the right elbow FINDINGS: The bones appear moderately demineralized. There is moderate circumferential soft tissue swelling about the elbow, visualized distal upper arm and proximal forearm. Marginal spurring is noted about the elbow without acute fracture, or dislocation. Ill-defined lucency is noted within the soft tissues posterior to the distal humerus may reflect joint effusion. IMPRESSION: 1. Suggested joint effusion with moderate soft tissue swelling. 2. No acute fracture or dislocation. 3. Degenerative marginal spurring about the elbow. The above report was generated using voice recognition software. It may contain grammatical, syntax or spelling errors. Electronically signed by: Miguel A Guzman M.D. 12/11/2017 12:41 PM CHEST 2 VIEWS ROUTINE CLINICAL HISTORY: shoulder pain pain COMPARISON STUDY: 07/16/2017 FINDINGS: Old fracture right humeral head and neck. Degenerative change left shoulder. Superior mediastinal soft tissue fullness unaltered. Moderate stable cardiomegaly. Small posterior pleural effusions bilaterally. IMPRESSION: Cardiomegaly. Small bilateral pleural effusions. Chronic changes as noted. The above report was generated using voice recognition software. It may contain grammatical, syntax or spelling errors. Electronically signed by: Blaine Toure M.D. 12/11/2017 12:42 PM Laboratory Results Test 12/11/17 12:25 12/11/17 14:20 Immature Granulocyte % (Auto) 0.5 % White Blood Count 10.86 K/uL (4.8-10.8) Red Blood Count 4.12 M/uL (4.2-5.4) Hemoglobin 11.6 g/dL (12.0-16.0) Hematocrit 36.3 % (37-47) Mean Corpuscular Volume 88.1 fL (80-100) Mean Corpuscular Hemoglobin 28.2 pg (25-34) Mean Corpuscular Hemoglobin Concent 32.0 g/dl (32-36) Platelet Count 182 K/uL (130-400) Mean Platelet Volume 9.4 fL (7.4-10.4) Neutrophils (%) (Auto) 63.6 % Lymphocytes (%) (Auto) 14.8 % Monocytes (%) (Auto) 20.9 % Eosinophils (%) (Auto) 0.1 % Basophils (%) (Auto) 0.1 % Neutrophils # (Auto) 6.91 K/uL (1.4-6.5) Lymphocytes # (Auto) 1.61 K/uL (1.2-3.4) Monocytes # (Auto) 2.27 K/uL (0.11-0.59) Eosinophils # (Auto) 0.01 K/uL (0-0.5) Basophils # (Auto) 0.01 K/uL (0-0.2) Immature Granulocyte # (Auto) 0.05 K/uL (0.00-0.02) Erythrocyte Sedimentation Rate 57 mm/hr (0-21) Uric Acid 4.4 mg/dl (2.6-7.2) Troponin I 0.030 ng/ml (0-0.045) C-Reactive Protein 16.20 mg/dl (0-0.29) Pro-B-Type Natriuretic Peptide 3175 pg/ml (0-1800) Urine Color DK YELLOW Urine Appearance CLOUDY (CLEAR) Urine pH 5.0 (4.5-7.5) Urine Specific [employer] [place] 1.025 (1.000-1.030) Urine Protein 2+ (NEG) Urine Glucose (UA) NEG (NEG) Urine Ketones 1+ (NEG) Urine Occult Blood TRACE (NEG) Urine Nitrite POS (NEG) Urine Bilirubin NEG (NEG) Urine Urobilinogen NEG (NEG) Urine Leukocyte Esterase TRACE (NEG) Urine WBC (Auto) 1-5 /hpf (0-5) Urine RBC (Auto) 0-4 /hpf (0-4) Urine Hyaline Casts (Auto) 0 /lpf (0-5) Urine Epithelial Cells (Auto) >30 /lpf (0-5) Urine Bacteria (Auto) NEG (NEG) Urine Pathogenic Casts 0-3 GRANULAR CASTS /lpf (0) Laboratory results per my review. Medications Administered Medications (Trade) Dose Ordered Sig/Tonya Route Start Time Stop Time Status Last Admin Dose Admin Ceftriaxone Sodium (Rocephin Inj) 1 gm NOW STAT IV 12/11/17 14:44 12/11/17 14:45 DC 12/11/17 14:53 1 GM Sodium Chloride 1,000 ml @ 100 mls/hr Q10H STAT IV 12/11/17 17:05 12/11/17 21:07 DC 12/11/17 17:23 100 MLS/HR Acetaminophen (Tylenol Tab) 650 mg Q4H PRN PO 12/11/17 18:30 01/10/18 18:29 12/12/17 09:26 650 MG Potassium Chloride (Klor-Con Tab) 40 meq NOW STAT PO 12/11/17 18:18 12/11/17 18:56 DC 12/11/17 19:55 40 MEQ Magnesium Sulfate 100 ml @ 100 mls/hr NOW STAT IV 12/11/17 18:18 12/11/17 19:17 DC 12/11/17 19:01 100 MLS/HR ECG Per My Interpretation Indication: other (right arm/shoulder pain) Rate (beats per minute): 110 Rhythm: atrial fibrillation Findings: PVC (noted), no acute ischemic change, other (rightward axis, normal QRS and QTC) ED Course 1207: The patient was evaluated in room C3. A complete history and physical exam was performed. 1444: Ordered Rocephin Inj 1 gm IV 1508: I checked on the patient at this time. She is resting comfortably. 1705: Ordered Sodium Chloride 1000 ml @ 100 mls/hr IV 1718: I reviewed the patient's case with Dr. Maguire, [facility] Hospitalist. He will evaluate the patient for further management. Medical Decision Prior records reviewed and summarized above. Triage Nursing notes reviewed and agree them. Additional history obtained from the patient's aid. The patient's history was concerning for traumatic injury. Differential diagnosis: Etiologies such as fracture, dislocation, neurovascular compromise, compartment syndrome, soft tissue injury, as well as others were entertained. Patient with concerning presentation given limited mobility due to right upper extremity pain in a patient who is already requiring a walker for ambulation. Initially no strong evidence to suggest cellulitis, gout. No recent trauma or injury. I have a lower suspicion for septic arthritis and at the time of presentation the emergency room did not feel patient's condition warranted arthrocentesis given risk of bleeding is INR 2.9 and risk of introducing infection given her age and comorbidities. While patient's ESR and CRP were elevated, patient still had flexion and extension at the elbow without pain, and edema seem to be coming from soft tissues and less so a joint effusion. Patient also found to have UTI and was started on Rocephin. Patient clinically dehydrated, however elevated BNP due to not taking her Lasix over the last several days due to having diarrhea. PT and OT not available for evaluation in the afternoon as placement into rehab was considered. Discussed all results with patient and Aid at bedside. Aid have been trying to contact family for many hours with no response. Patient's son is her POA. I am concerned for eventual placement of the patient is a feel at this point in time she is unable to live independently even with a few hours daily of assistance from an aide. I did discuss all these concerns with the hospitalist and offered to call orthopedics as a precaution due to the right upper extremity pain. They declined stating they would like to perform their own evaluation first and then decide if this is necessary. They are aware of the ambulatory dysfunction as well as other social concerns I have regarding this patient. I do not suspect upper extremity DVT given therapeutic INR. No evidence of new trauma. No evidence for bacteremia/sepsis, I do not suspect pyelonephritis. I do not suspect other contributing obstructive uropathy. Likely difficulty in personal hygiene and caring for herself with the recent diarrhea contributed to the evolution of her UTI. Patient hemodynamically stable throughout. Medication Reconcilliation Current Medication List: was personally reviewed by me Blood Pressure Screening Patient's blood pressure: Elevated blood pressure Consults Time Called: 1705 Consulting Physician: Dr. Maguire, [facility] Hospitalist Returned Call: 1718 I reviewed the patient's case with Dr. Maguire, [facility] Hospitalist. He will evaluate the patient for further management. Impression Primary Impression: Dehydration Additional Impressions: Diarrhea UTI (urinary tract infection) Right arm pain Ambulatory dysfunction Scribe Attestation The scribe's documentation has been prepared under my direction and personally reviewed by me in its entirety. I confirm that the note above accurately reflects all work, treatment, procedures, and medical decision making performed by me. Departure Information Dispostion Being Evaluated By Hospitalist (Dr. Maguire, [facility] Hospitalist) Referrals Rodríguez Coy M.D. (PCP) Patient Instructions My [facility] Problem Qualifiers Additional Impressions: Diarrhea Diarrhea type: unspecified type Qualified Codes: R19.7 - Diarrhea, unspecified UTI (urinary tract infection) Urinary tract infection type: acute cystitis Hematuria presence: with hematuria Qualified Codes: N30.01 - Acute cystitis with hematuria
--- NOTE | 2017-12-11 12:42 | DIAGNOSTIC IMAGING REPORT ---
R ELBOW MIN 3 VIEWS ROUTINE HISTORY: 87 years-old Female Right elbow swelling acute right elbow pain and swelling COMPARISON: None available TECHNIQUE: 3 views of the right elbow FINDINGS: The bones appear moderately demineralized. There is moderate circumferential soft tissue swelling about the elbow, visualized distal upper arm and proximal forearm. Marginal spurring is noted about the elbow without acute fracture, or dislocation. Ill-defined lucency is noted within the soft tissues posterior to the distal humerus may reflect joint effusion. IMPRESSION: 1. Suggested joint effusion with moderate soft tissue swelling. 2. No acute fracture or dislocation. 3. Degenerative marginal spurring about the elbow. The above report was generated using voice recognition software. It may contain grammatical, syntax or spelling errors. Electronically signed by: Miguel A Guzman M.D. 12/11/2017 12:41 PM Dictated Date/Time: 12/11/2017 12:39 PM
--- NOTE | 2017-12-11 12:43 | DIAGNOSTIC IMAGING REPORT ---
CHEST 2 VIEWS ROUTINE CLINICAL HISTORY: shoulder pain pain COMPARISON STUDY: 07/16/2017 FINDINGS: Old fracture right humeral head and neck. Degenerative change left shoulder. Superior mediastinal soft tissue fullness unaltered. Moderate stable cardiomegaly. Small posterior pleural effusions bilaterally. IMPRESSION: Cardiomegaly. Small bilateral pleural effusions. Chronic changes as noted. The above report was generated using voice recognition software. It may contain grammatical, syntax or spelling errors. Electronically signed by: Blaine Toure M.D. 12/11/2017 12:42 PM Dictated Date/Time: 12/11/2017 12:40 PM
--- NOTE | 2017-12-11 12:45 | DIAGNOSTIC IMAGING REPORT ---
R SHOULDER MIN 2 VIEWS ROUTINE HISTORY: 87 years-old Female Right shoulder pain acute right shoulder pain status post fall COMPARISON: Chest radiographs of same day TECHNIQUE: 3 views of the right shoulder FINDINGS: Severe osteoarthritis about the right shoulder. Moderate osteoarthritis of the AC joint. No acute fracture or dislocation. Cardiomegaly with pulmonary vascular congestion. 2.9 cm calcified body again noted projecting over the upper lateral right chest wall. This may reflect a calcified lymph node however is indeterminate. Moderate bone demineralization. IMPRESSION: No acute fracture or dislocation identified. The above report was generated using voice recognition software. It may contain grammatical, syntax or spelling errors. Electronically signed by: Miguel A Guzman M.D. 12/11/2017 12:43 PM Dictated Date/Time: 12/11/2017 12:41 PM
[2017-12-11 13:12] LABS: HEMATOCRIT 36.3 % (37-47); HEMOGLOBIN 11.6 g/dL (12.0-16.0); MEAN CELL VOLUME 88.1 fL (80-100); MEAN CORPUSCULAR HEMOGLOBIN 28.2 pg (25-34); MEAN PLATELET VOLUME 9.4 fL (7.4-10.4); PLATELET COUNT 182 K/uL (130-400); RED CELL DISTRIBUTION WIDTH CV 16.5 % (11.5-14.5); RED CELL DISTRIBUTION WIDTH SD 53.4 fL (36.4-46.3); WHITE BLOOD COUNT 10.86 K/uL (4.8-10.8)
[2017-12-11 13:20] LABS: INR 2.9 (0.9-1.1)
[2017-12-11 13:34] LABS: ALBUMIN 3.3 gm/dl (3.4-5.0); BASO % 0.1 %; BASO ABS # 0.01 K/uL (0-0.2); CALCIUM 8.9 mg/dl (8.5-10.1); CREATININE 0.47 mg/dl (0.60-1.20); EOS % 0.1 %; EOS ABS # 0.01 K/uL (0-0.5); IG# 0.05 K/uL (0.00-0.02); LYMPH % 14.8 %; LYMPH ABS # 1.61 K/uL (1.2-3.4); MONO % 20.9 %; MONO ABS # 2.27 K/uL (0.11-0.59); NEUT % 63.6 %; NEUT ABS # 6.91 K/uL (1.4-6.5); POTASSIUM 3.2 mmol/L (3.5-5.1); TOTAL PROTEIN 7.4 gm/dl (6.4-8.2); URIC ACID 4.4 mg/dl (2.6-7.2)
[2017-12-11] MEDS ORDERED: CEFTRIAXONE SOD INJ 1 GM ADDVIAL IV STA (14:44)
[2017-12-11] MEDS ORDERED: SODIUM CHLORIDE 0.9% 1000ML 1,000 ML IV STA (17:05)
[2017-12-11] MEDS ORDERED: MAGNESIUM SULFATE 1GM / D5W 100 ML IV STA (18:18)
[2017-12-11] MEDS ORDERED: POTASSIUM CHLORIDE 20 MEQ TABCR PO STA (18:18)
[2017-12-11] MEDS ORDERED: ONDANSETRON INJ 2 MG/ML 2 ML VIAL IV PRN (18:30)
[2017-12-11] MEDS ORDERED: ACETAMINOPHEN 325 MG TAB PO PRN (18:30)
[2017-12-11] MEDS ORDERED: ALUMINUM/MAGNESIUM/SIMETH (MAALOX MAX) 30 ML UDC PO PRN (18:30)
[2017-12-11] MEDS ORDERED: LEValbuterol HFA 15GM INHALER INH PRN (18:30)
[2017-12-11] MEDS ORDERED: TRAMADOL HCL 50 MG TAB PO PRN (18:30)
[2017-12-11] MEDS ORDERED: MAGNESIUM HYDROXIDE SUSP 30 ML UDC PO PRN (18:30)
--- NOTE | 2017-12-11 18:52 | History and Physical ---
History & Physical Date & Time of Service: Dec 11, 2017 at 18:36 Chief Complaint: R Arm/Shoulder Pain, Swollen Elbow Primary Care Physician: Rodríguez Coy M.D. History of Present Illness Source: patient, caregiver 87y/oF with hx of Afib, HTN, chronic venous insufficiency, CHF, GERD and osteoarthritis presents with worsening R arm, elbow and wrist/hand pain x 3 days. This AM pt noted significant swelling. Per aid, she has been complaining of elbow pain x 3 days and this morning was having increased swelling and some warmth. Per aid, pt pushes off kitchen island with hands when she eats there to get out of chair but no known trauma or insect bites. Pt had a R humeral head and neck fracture about 10 years ago. Pt has been taking home tramadol for osteoarthritis without any relief. Of note: pt has had multiple episodes of cellulitis in her legs in the setting of chronic venous insufficiency (per notes no cultures with MRSA). Pt also reports recent episode of L hand pain which was initially concerning for gout but did not respond to appropriate regimen; it finally improved when she received an antibiotic for it. Lives at home and has an aid. Son is concerned about declining status and wants mother to go to rehab to get stronger ED interval hx: received Rocephin x 1 and NS 100mls/hr 1 bag Past Medical/Surgical History Medical Problems: (1) Asthma (2) Atrial fibrillation (3) Bronchitis (4) Cellulitis (5) Cellulitis of left lower extremity (6) HTN (hypertension) (7) Hypoxia (8) Pulmonary edema (9) Rapid atrial fibrillation (10) Right arm pain (11) Shortness of breath Surgical Problems: (1) History of cholecystectomy Family History Cancer Gallbladder disease Heart disease Hypertension No pertinent family history Social History Smoking Status: Never Smoker Drug Use: none Marital Status: Housing status: lives with family Occupational Status: retired Immunizations History of Influenza Vaccine: Yes Influenza Vaccine Date: Feb 16, 2009 History of Tetanus Vaccine?: Unknown History of Pneumococcal: Yes Pneumococcal Date: Apr 13, 2001 History of Hepatitis B Vaccine: No Allergies Coded Allergies: Iodinated Diagnostic Agents (Verified Allergy, Severe, SWOLLEN LEGS WITH REDDNESS AND ITCHING, 12/11/17) Clarithromycin (Unverified Allergy, Unknown, UNKNOWN, 12/11/17) Desogestrel (Unverified Adverse Reaction, Severe, SEVERE SWELLING IN LEGS , 12/11/17) Ethinyl Estradiol (Unverified Adverse Reaction, Severe, SEVERE SWELLING IN LEGS, 12/11/17) Aspirin (Verified Adverse Reaction, Mild, HX GASTRIC ULCERS, 12/11/17) NSAIDs (Unverified Adverse Reaction, Unknown, History of gastric ulcers, ) Home Medications Scheduled Cholecalciferol (Vitamin D), 3,000 UNIT PO QAM Furosemide (Lasix), 40 MG PO UD Metoprolol Tartrate (Lopressor), 25 MG PO BID Metoprolol Tartrate (Lopressor) (Lopressor), 50 MG PO BID Metoprolol Tartrate (Lopressor) (Lopressor), 25 MG PO BID Omeprazole (Prilosec), 20 MG PO QAM Potassium Chloride (Klor-Con M20), 20 MEQ PO DAILY Potassium Ext Rel (Klor-Con), 20 MEQ PO DAILY Warfarin Sod (Coumadin), 4 MG PO UD Warfarin Sod (Jantoven), 3 MG PO UD [Tramadol Er], 100 MG PO QAM Scheduled PRN Acetaminophen (Tylenol), 1,000 MG PO TID PRN for Pain Levalbuterol Tartrate (Levalbuterol Tartrate Hfa), 2 PUFFS INH Q6H PRN for SOB/ Wheezing Tramadol (Ultram), 1 TAB PO HS PRN for Pain Review of Systems Constitutional: No fever, No chills Respiratory: No shortness of breath Cardiovascular: No chest pain Abdomen: No pain, No nausea, No vomiting, No diarrhea, No constipation Musculoskeletal: + problem reported (R arm to hand pain and edema with warmth and skin changes) Genitourinary - Female: No dysuria Physical Exam Vital Signs Date Time Temp Pulse Resp B/P (MAP) Pulse Ox O2 Delivery O2 Flow Rate FiO2 12/11/17 18:23 105 18 154/75 95 Room Air 12/11/17 16:45 93 16 150/80 96 Room Air 12/11/17 14:53 81 16 139/77 97 Room Air 12/11/17 13:24 54 18 149/59 96 Room Air 12/11/17 13:13 116 19 139/89 93 Room Air 12/11/17 11:05 37.3 58 18 147/88 96 Room Air General Appearance: no apparent distress Head: normocephalic, atraumatic Eyes: normal inspection ENT: hearing grossly normal Respiratory/Chest: lungs clear, normal breath sounds, no respiratory distress Cardiovascular: no murmur, + abnormal rhythm (irregular) Abdomen/GI: normal bowel sounds, non tender, soft Back: + pertinent finding (kyphosis ) Extremities/Musculoskelatal: no calf tenderness, no pedal edema, + pertinent finding (R elbow down to hand diffuse edema without a region of fluctuance, no significant TTP, increased warmth and skin looks somewhat pinkish more so over the elbow region; decreased active and passive ROM of elbow, wrist and fingers ( cannot make a fist); chronic venous stasis skin changes bilaterally ) Neurologic/Psych: alert, oriented x 3 Skin: + pertinent finding (R arm (elbow to hand) feels significantly warm to touch compared to L and looks more pinkish in color ) Diagnostics Laboratory Results Results Past 24 Hours Test 12/11/17 12:25 12/11/17 14:20 Range/Units White Blood Count 10.86 4.8-10.8 K/uL Red Blood Count 4.12 4.2-5.4 M/uL Hemoglobin 11.6 12.0-16.0 g/dL Hematocrit 36.3 37-47 % Mean Corpuscular Volume 88.1 80-100 fL Mean Corpuscular Hemoglobin 28.2 25-34 pg Mean Corpuscular Hemoglobin Concent 32.0 32-36 g/dl Platelet Count 182 130-400 K/uL Mean Platelet Volume 9.4 7.4-10.4 fL Neutrophils (%) (Auto) 63.6 % Lymphocytes (%) (Auto) 14.8 % Monocytes (%) (Auto) 20.9 % Eosinophils (%) (Auto) 0.1 % Basophils (%) (Auto) 0.1 % Neutrophils # (Auto) 6.91 1.4-6.5 K/uL Lymphocytes # (Auto) 1.61 1.2-3.4 K/uL Monocytes # (Auto) 2.27 0.11-0.59 K/uL Eosinophils # (Auto) 0.01 0-0.5 K/uL Basophils # (Auto) 0.01 0-0.2 K/uL RDW Standard Deviation 53.4 36.4-46.3 fL RDW Coefficient of Variation 16.5 11.5-14.5 % Immature Granulocyte % (Auto) 0.5 % Immature Granulocyte # (Auto) 0.05 0.00-0.02 K/uL Erythrocyte Sedimentation Rate 57 0-21 mm/hr Prothrombin Time 30.3 9.0-12.0 SECONDS Prothromb Time International Ratio 2.9 0.9-1.1 Sodium Level 134 136-145 mmol/L Potassium Level 3.2 3.5-5.1 mmol/L Chloride Level 101 98-107 mmol/L Carbon Dioxide Level 24 21-32 mmol/L Anion Gap 9.0 3-11 mmol/L Blood Urea Nitrogen 8 7-18 mg/dl Creatinine 0.47 0.60-1.20 mg/dl Est Creatinine Clear Calc Drug Dose 74.6 ml/min Estimated GFR () 101.5 Estimated GFR (Non- 87.6 BUN/Creatinine Ratio 16.2 10-20 Random Glucose 112 70-99 mg/dl Uric Acid 4.4 2.6-7.2 mg/dl Calcium Level 8.9 8.5-10.1 mg/dl Magnesium Level 1.7 1.8-2.4 mg/dl Total Bilirubin 2.0 0.2-1 mg/dl Aspartate Amino Transf (AST/SGOT) 24 15-37 U/L Alanine Aminotransferase (ALT/SGPT) 22 12-78 U/L Alkaline Phosphatase 161 45-117 U/L Troponin I 0.030 0-0.045 ng/ml C-Reactive Protein 16.20 0-0.29 mg/dl Pro-B-Type Natriuretic Peptide 3175 0-1800 pg/ml Total Protein 7.4 6.4-8.2 gm/dl Albumin 3.3 3.4-5.0 gm/dl Globulin 4.1 2.5-4.0 gm/dl Albumin/Globulin Ratio 0.8 0.9-2 Urine Color DK YELLOW Urine Appearance CLOUDY CLEAR Urine pH 5.0 4.5-7.5 Urine Specific [place] 1.025 1.000-1.030 Urine Protein 2+ NEG Urine Glucose (UA) NEG NEG Urine Ketones 1+ NEG Urine Occult Blood TRACE NEG Urine Nitrite POS NEG Urine Bilirubin NEG NEG Urine Urobilinogen NEG NEG Urine Leukocyte Esterase TRACE NEG Urine WBC (Auto) 1-5 0-5 /hpf Urine RBC (Auto) 0-4 0-4 /hpf Urine Hyaline Casts (Auto) 0 0-5 /lpf Urine Epithelial Cells (Auto) >30 0-5 /lpf Urine Bacteria (Auto) NEG NEG Urine Pathogenic Casts 0-3 GRANULAR CASTS 0 /lpf Diagnostic Radiology CHEST 2 VIEWS ROUTINE CLINICAL HISTORY: shoulder pain pain COMPARISON STUDY: 07/16/2017 FINDINGS: Old fracture right humeral head and neck. Degenerative change left shoulder. Superior mediastinal soft tissue fullness unaltered. Moderate stable cardiomegaly. Small posterior pleural effusions bilaterally. IMPRESSION: Cardiomegaly. Small bilateral pleural effusions. Chronic changes as noted. R ELBOW MIN 3 VIEWS ROUTINE HISTORY: 87 years-old Female Right elbow swelling acute right elbow pain and swelling COMPARISON: None available TECHNIQUE: 3 views of the right elbow FINDINGS: The bones appear moderately demineralized. There is moderate circumferential soft tissue swelling about the elbow, visualized distal upper arm and proximal forearm. Marginal spurring is noted about the elbow without acute fracture, or dislocation. Ill-defined lucency is noted within the soft tissues posterior to the distal humerus may reflect joint effusion. IMPRESSION: 1. Suggested joint effusion with moderate soft tissue swelling. 2. No acute fracture or dislocation. 3. Degenerative marginal spurring about the elbow. R SHOULDER MIN 2 VIEWS ROUTINE HISTORY: 87 years-old Female Right shoulder pain acute right shoulder pain status post fall COMPARISON: Chest radiographs of same day TECHNIQUE: 3 views of the right shoulder FINDINGS: Severe osteoarthritis about the right shoulder. Moderate osteoarthritis of the AC joint. No acute fracture or dislocation. Cardiomegaly with pulmonary vascular congestion. 2.9 cm calcified body again noted projecting over the upper lateral right chest wall. This may reflect a calcified lymph node however is indeterminate. Moderate bone demineralization. IMPRESSION: No acute fracture or dislocation identified. EKG Afib with RVR 110 Impression Assessment and Plan 87y/oF with hx of Afib, HTN, chronic venous insufficiency, CHF, GERD and osteoarthritis presents with worsening R arm, elbow and wrist/hand pain x 3 days. Concerning for cellulitis and less likely to be septic joint based on diffuse swelling, warmth and mild erythema. Pt well appearing, and afebrile with mildly elevated WBC. Cellulitis R Upper Extremity (diffuse edema with warmth and mild erythema) vs. septic arthritis - R Elbow XR: elbow joint effusion with moderate ST swelling; no fracture/ displacement; degenerative changes - R Shoulder XR: no acute changes, chronic SANDRA changes - Afebrile with mildly elevated WBC of 10.9 - Continue Rocephin (received 1g in the ED) - Received IVF NS 100mls/hr x 1 bag - Monitor clinically - Follow CBC - Consider R elbow MRI if not improving Afib/HTN/CHF - CXR stable moderate cardiomegaly, small b/l pleural effusion - BNP 3175 without any clinical evidence of acute CHF exacerbation - Troponin neg 0.03 - Continue home coumadin: 3mg MWF; 4mg TThSaS - Continue home metoprolol 25mg BID and 50mg BID - Continue home Lasix 40mg GERD - Continue prilosec Osteoarthritis - Continue home Tramadol - Continue calcium and Vit D FEN/GI - K 3.2 - repleted KCL PO 40meq - Mag 1.7 - repleted Mag Sulfate 1g - Diet: AHA heart healthy DVT prop: Coumadin Code: CPR and ventilation (acute only not prolonged for maintenance) Resident Physician Supervision Note: I interviewed and examined the patient. Discussed with Dr. Jareth Power and agree with findings and plan as documented in the note. Any exceptions or clarifications are listed here: except for noted below. Her right extremity does not appear to be erythematous on my exam, however it is warm to touch and tender. At this moment this may be probable early cellulitis. Will continue IV rocephin and monitor tomorrow. Documented By: Nikos Maguire Resuscitation Status VTE Prophylaxis Will order VTE Prophylaxis: Yes
[2017-12-11] MEDS ORDERED: MAGNESIUM SULFATE 1GM / D5W 1 GM BAG IV ONE (18:56)
[2017-12-11 20:07] VITALS: BP 139/83; PULSE 110; TEMP 36.8; O2SAT 94; Ht 160 cm; Wt 69.0 kg
[2017-12-11] MEDS ORDERED: WARFARIN SOD 3 MG TAB PO SCH (21:00)
[2017-12-11] MEDS: METOPROLOL TARTRATE 50 MG TAB PO SCH (21:33)
[2017-12-11] MEDS: METOPROLOL TARTRATE 25 MG TAB PO SCH (21:33)
[2017-12-12 00:05] VITALS: BP 144/79; PULSE 100; TEMP 36.4; O2SAT 95
[2017-12-12 06:03] LABS: HEMATOCRIT 34.6 % (37-47); HEMOGLOBIN 11.2 g/dL (12.0-16.0); MEAN CELL VOLUME 88.5 fL (80-100); MEAN CORPUSCULAR HEMOGLOBIN 28.6 pg (25-34); MEAN CORPUSCULAR HGB CONC 32.4 g/dl (32-36); MEAN PLATELET VOLUME 9.5 fL (7.4-10.4); PLATELET COUNT 203 K/uL (130-400); RED CELL DISTRIBUTION WIDTH CV 16.6 % (11.5-14.5); RED CELL DISTRIBUTION WIDTH SD 53.5 fL (36.4-46.3); WHITE BLOOD COUNT 8.99 K/uL (4.8-10.8)
[2017-12-12 06:16] LABS: INR 2.6 (0.9-1.1)
[2017-12-12 06:35] LABS: ALBUMIN 2.8 gm/dl (3.4-5.0); CALCIUM 8.5 mg/dl (8.5-10.1); CREATININE 0.45 mg/dl (0.60-1.20); POTASSIUM 3.7 mmol/L (3.5-5.1)
[2017-12-12 06:39] LABS: TOTAL PROTEIN 6.7 gm/dl (6.4-8.2)
[2017-12-12 07:15] VITALS: BP 139/81; PULSE 90; TEMP 37; O2SAT 95
[2017-12-12] MEDS ORDERED: NURSING VERBAL MED ORDER ONE ×2 (09:15→15:30)
[2017-12-12] MEDS: METOPROLOL TARTRATE 50 MG TAB PO SCH ×2 (09:21→20:10)
[2017-12-12] MEDS: METOPROLOL TARTRATE 25 MG TAB PO SCH ×2 (09:21→21:05)
[2017-12-12] MEDS: CHOLECALCIFEROL 1000 INTER.UNIT TAB PO SCH (09:21)
[2017-12-12] MEDS: POTASSIUM CHLORIDE 20 MEQ TABCR PO SCH (09:22)
[2017-12-12] MEDS: PANTOprazole SOD 40 MG TAB PO SCH (09:22)
[2017-12-12] MEDS: FUROSEMIDE 40 MG TAB PO SCH (10:14)
[2017-12-12 10:56] VITALS: TEMP 36.8
[2017-12-12] MEDS ORDERED: CEFTRIAXONE SOD INJ 1 GM in DEXTROSE 5% ADD-VANTAGE 50ML 50 ML IV SCH (14:00)
[2017-12-12] MEDS ORDERED: DICLOFENAC SOD 1% GEL 100 GM TUBE EXT ONE (14:30)
[2017-12-12 15:59] VITALS: BP 147/88; PULSE 91; TEMP 36.8; O2SAT 95
[2017-12-12] MEDS ORDERED: WARFARIN SOD 4 MG TAB PO SCH (16:00)
--- NOTE | 2017-12-12 16:45 | Family Medicine Progress Note ---
Progress Note Date of Service Dec 12, 2017. Subjective Patient is resting comfortably in bed. Tolerating p.o. Complains that her pain is not as prominent in her right shoulder or right elbow anymore, and is more prominent in her right wrist and hand. Later in the day with attending present, patient then complained more of pain in the left wrist. She states that perhaps it is due to difficult transfer to bed. Patient denies fevers or chills. Otherwise feeling well. ROS See HPI for pertinent positives and negatives. Otherwise denies new headache, vision change, chest pain, dyspnea, abdominal pain, loose or bloody stools, dysuria, or numbness tingling in extremities. Medications Current Inpatient Medications Medications (Trade) Dose Ordered Sig/Tonya Route Start Time Stop Time Status Last Admin Dose Admin Acetaminophen (Tylenol Tab) 650 mg Q4H PRN PO 12/11/17 18:30 01/10/18 18:29 12/12/17 09:26 650 MG Al Hydrox/Mg Hydrox/Simethicone (Maalox Max Susp) 15 ml Q4H PRN PO 12/11/17 18:30 01/10/18 18:29 Magnesium Hydroxide (Milk Of Magnesia Susp) 30 ml Q6H PRN PO 12/11/17 18:30 01/10/18 18:29 Polyethylene (Miralax Powder Packet) 17 gm DAILY PRN PO 12/11/17 18:30 01/10/18 18:29 Ondansetron HCl (Zofran Inj) 4 mg Q6H PRN IV 12/11/17 18:30 01/10/18 18:29 Levalbuterol (Xopenex Hfa Inhaler) 2 puffs Q6H PRN INH 12/11/17 18:30 01/10/18 18:29 Metoprolol Tartrate (Lopressor Tab) 25 mg BID PO 12/11/17 20:14 01/10/18 20:59 12/12/17 09:21 25 MG Metoprolol Tartrate (Lopressor Tab) 50 mg BID PO 12/11/17 20:14 01/10/18 20:59 12/12/17 09:21 50 MG Potassium Chloride (Klor-Con Tab) 20 meq DAILY PO 12/12/17 08:00 01/11/18 08:59 7/27/18 09:22 20 MEQ Cholecalciferol (Vitamin D Tab) 3,000 inter.unit DAILY PO 12/12/17 08:00 01/11/18 08:59 12/12/17 09:21 3,000 INTER.UNIT Pantoprazole Sodium (Protonix Tab) 40 mg QAM PO 12/12/17 08:00 01/11/18 08:59 12/12/17 09:22 40 MG Miscellaneous Information (Order Awaiting Action) 1 ea QS N/A 12/12/17 00:00 01/11/18 00:00 Ceftriaxone Sodium 1 gm/ Dextrose 50 ml @ 100 mls/hr Q24H IV 12/12/17 14:00 12/20/17 14:29 12/12/17 14:51 100 MLS/HR Furosemide (Lasix Tab) 40 mg DAILY PO 12/12/17 09:30 01/11/18 07:59 12/12/17 10:14 40 MG Tramadol HCl (Ultram Tab) 50 mg TID PRN PO 12/12/17 11:00 01/10/18 18:29 Diclofenac Sodium (Voltaren 1% Top Gel) 1 appln QID EXT 12/12/17 17:00 01/11/18 16:59 Warfarin Sodium (Coumadin Tab) 3 mg MoWeFr@1600 PO 12/12/17 16:00 01/11/18 15:59 Warfarin Sodium (Coumadin Tab) 4 mg SuTuThSa@1600 PO 12/13/17 16:00 01/10/18 20:59 Objective Vital Signs Date Time Temp Pulse Resp B/P (MAP) Pulse Ox O2 Delivery O2 Flow Rate FiO2 12/12/17 15:59 36.8 91 18 147/88 (107) 95 Room Air 12/12/17 10:56 36.8 12/12/17 07:15 37.0 90 18 139/81 (100) 95 Room Air 12/12/17 00:05 36.4 100 18 144/79 (100) 95 Room Air 12/12/17 00:00 Room Air 12/11/17 20:07 36.8 110 24 139/83 94 Room Air 12/11/17 20:02 98 18 146/87 98 12/11/17 19:20 104 18 145/77 97 Room Air 12/11/17 18:23 105 18 154/75 95 Room Air 12/11/17 16:45 93 16 150/80 96 Room Air Physical Exam Notes: GENERAL: Awake, alert and oriented x 3, in no distress HENT: Normocephalic, atraumatic. EYES: Normal conjunctiva. Sclera non-icteric. NECK: Supple. Full range of motion. no JVD RESPIRATORY: Clear to auscultation. CARDIAC: Regular rate, normal rhythm. Extremities warm and well perfused. Pulses equal. ABDOMEN: Soft, non-distended. No tenderness to palpation. No rebound or guarding. No masses. EXTREMITIES: Calves are equal size bilaterally and non-tender. Full range of motion in the right elbow, and right wrist. Very mild erythema in right wrist and hand. Tender to palpation and limited range of movement in left shoulder. NEURO: No sensory or motor deficits noted. SKIN: No rash or jaundice noted. Laboratory Results 12/12/17 05:19 Red Blood Count 3.91, Mean Corpuscular Volume 88.5, Mean Corpuscular Hemoglobin 28.6, Mean Corpuscular Hemoglobin Concent 32.4, Mean Platelet Volume 9.5 12/12/17 05:19 Test 12/12/17 05:19 White Blood Count 8.99 K/uL (4.8-10.8) Red Blood Count 3.91 M/uL (4.2-5.4) Hemoglobin 11.2 g/dL (12.0-16.0) Hematocrit 34.6 % (37-47) Mean Corpuscular Volume 88.5 fL (80-100) Mean Corpuscular Hemoglobin 28.6 pg (25-34) Mean Corpuscular Hemoglobin Concent 32.4 g/dl (32-36) Platelet Count 203 K/uL (130-400) Mean Platelet Volume 9.5 fL (7.4-10.4) RDW Standard Deviation 53.5 fL (36.4-46.3) RDW Coefficient of Variation 16.6 % (11.5-14.5) Neutrophils % (Manual) 68.7 % Lymphocytes % (Manual) 8.7 % Monocytes % (Manual) 21.7 % Eosinophils % (Manual) 0.9 % Neutrophils # (Manual) 6.18 K/uL (1.4-6.5) Total Absolute Neutrophils 6.18 K/uL (1.4-6.5) Lymphocytes # (Manual) 0.78 K/uL (1.2-3.4) Total Absolute Lymphocytes 0.78 K/uL (1.2-3.4) Monocytes # (Manual) 1.95 K/uL (0.11-0.59) Eosinophils # (Manual) 0.08 K/uL (0-0.5) Red Blood Cell Morphology Unremarkable Prothrombin Time 27.2 SECONDS (9.0-12.0) Prothromb Time International Ratio 2.6 (0.9-1.1) Anion Gap 8.0 mmol/L (3-11) Est Creatinine Clear Calc Drug Dose 79.0 ml/min Estimated GFR () 103.0 Estimated GFR (Non- 88.8 BUN/Creatinine Ratio 18.7 (10-20) Calcium Level 8.5 mg/dl (8.5-10.1) Magnesium Level 2.1 mg/dl (1.8-2.4) Total Bilirubin 1.7 mg/dl (0.2-1) Aspartate Amino Transf (AST/SGOT) 17 U/L (15-37) Alanine Aminotransferase (ALT/SGPT) 19 U/L (12-78) Alkaline Phosphatase 141 U/L (45-117) Total Protein 6.7 gm/dl (6.4-8.2) Albumin 2.8 gm/dl (3.4-5.0) Globulin 3.9 gm/dl (2.5-4.0) Albumin/Globulin Ratio 0.7 (0.9-2) Assessment and Plan 87-year-old female here for right arm pain, thought to be possible cellulitis. PMhx of Afib, HTN, chronic venous insufficiency, CHF, GERD and osteoarthritis Arm pain, possible cellulitis R Upper Extremity vs. septic arthritis versus osteoarthritis flare -Imaging reveals mild swelling, somewhat equivocal, certainly no fractures or dislocation. -Given transitory nature and now her left arm hurts, may be secondary to osteoarthritis flare. -Therefore will step down IV antibiotic to p.o. Keflex 500 mg 4 times daily. Add Voltaren gel, to be applied to right wrist and left shoulder. - Monitor clinically Afib/HTN/CHF -No acute issues - Continue home coumadin - Continue home metoprolol 25mg BID and 50mg BID - Continue home Lasix 40mg GERD - Continue prilosec Osteoarthritis - Continue home Tramadol 3 times a day - Continue calcium and Vit D FEN/GI -No fluids indicated at this time - Diet: AHA heart healthy DVT prop: Coumadin Code: Full code CPR and ventilation (acute only not prolonged for maintenance) Dispo: MedSurg. DC eval ongoing, patient desires prison. Resident Physician Supervision Note: I interviewed and examined the patient. Discussed with Dr. Nunn and agree with findings and plan as documented in the note. Any exceptions or clarifications are listed here: None Documented By: Marc Carrion R arm and hand better than yesterday, today's complaint is L shoulder pain. notes that R arm also started as shoulder then down arm then hand vitals noted nad fatigued. no erythema no fluctuance. has nonspecific edema R elbow but relatively nontender. diffuse crepitis w movmeent of joints and tendons b/l, attempt to examine rotator cuff L shoulder but she has pain even moving elbow from side pain, warmth -fairly unconvinced of infection, unless there was a dramatic regression since admitting exam (but described as warmth and skin changes moreso than true erythema) --> downgrade abx (considered dc entirely), voltaren gel, PT/OT weakness - for SNF Resident Tracking Resident Involvement: Resident Care Provided Care Provided: Adult Hospital Medicine
[2017-12-12] MEDS: CEPHALEXIN MONOHYDRATE 500 MG CAP PO SCH ×2 (17:48→20:09)
[2017-12-12] MEDS: DICLOFENAC SOD 1% GEL 100 GM TUBE EXT SCH ×2 (17:50→21:07)
[2017-12-12] MEDS: WARFARIN SOD 3 MG TAB PO SCH (17:50)
[2017-12-12] MEDS: TRAMADOL HCL 50 MG TAB PO PRN (17:55)
[2017-12-12 20:05] VITALS: BP 129/79; PULSE 100; O2SAT 98
[2017-12-12 23:51] VITALS: BP 143/92; PULSE 90; TEMP 36.9; O2SAT 96
[2017-12-13 07:42] VITALS: BP 136/84; PULSE 90; TEMP 36.3; O2SAT 97
[2017-12-13] MEDS: TRAMADOL HCL 50 MG TAB PO PRN ×2 (07:58→17:18)
[2017-12-13] MEDS: POTASSIUM CHLORIDE 20 MEQ TABCR PO SCH (07:59)
[2017-12-13] MEDS: METOPROLOL TARTRATE 25 MG TAB PO SCH ×2 (07:59→20:00)
[2017-12-13] MEDS: CEPHALEXIN MONOHYDRATE 500 MG CAP PO SCH ×4 (08:00→20:00)
[2017-12-13] MEDS: METOPROLOL TARTRATE 50 MG TAB PO SCH ×2 (08:00→20:00)
[2017-12-13] MEDS: FUROSEMIDE 40 MG TAB PO SCH (08:02)
[2017-12-13] MEDS: CHOLECALCIFEROL 1000 INTER.UNIT TAB PO SCH (08:02)
[2017-12-13] MEDS: PANTOprazole SOD 40 MG TAB PO SCH (08:03)
[2017-12-13] MEDS: DICLOFENAC SOD 1% GEL 100 GM TUBE EXT SCH ×4 (08:04→20:01)
[2017-12-13 08:14] LABS: INR 1.6 (0.9-1.1)
[2017-12-13 15:36] VITALS: BP 129/83; PULSE 95; TEMP 37.1; O2SAT 95
[2017-12-13] MEDS: WARFARIN SOD 4 MG TAB PO SCH (17:10)
--- NOTE | 2017-12-13 17:34 | Progress Note ---
Subjective Date of Service: Dec 13, 2017. Subjective Pt evaluation today including: conversation w/ patient, physical exam, chart review, lab review, review of inpatient medication list overall feeling better less pain moving arm/hand/wrist better no other complaints currently Problem List Medical Problems: (1) Ambulatory dysfunction Status: Acute (2) Cellulitis of left lower extremity Status: Acute (3) Dehydration Status: Acute (4) Diarrhea Status: Acute (5) Hypoxia Status: Acute (6) Pulmonary edema Status: Acute (7) Rapid atrial fibrillation Status: Acute (8) UTI (urinary tract infection) Status: Acute Review of Systems all other ROS otherwise negative except for as above Objective Vital Signs Date Time Temp Pulse Resp B/P (MAP) Pulse Ox O2 Delivery O2 Flow Rate FiO2 12/13/17 15:36 37.1 95 20 129/83 (98) 95 Room Air 12/13/17 08:00 Room Air 12/13/17 07:42 36.3 90 18 136/84 (101) 97 Room Air 12/13/17 00:00 Room Air 12/12/17 23:51 36.9 90 18 143/92 (109) 96 Room Air 12/12/17 20:05 100 129/79 (96) 98 Physical Exam General Appearance: no apparent distress Eyes: EOMI ENT: hearing grossly normal Neck: trachea midline Respiratory/Chest: no respiratory distress, no accessory muscle use Extremities: + pertinent finding (no erythema R arm, far less crepitis moving thumb, wrist, elbow. 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 PMhx of Afib, HTN, chronic venous insufficiency, CHF, GERD and osteoarthritis Arm pain, possible cellulitis R Upper Extremity vs. septic arthritis versus osteoarthritis flare -clinically appearing far more c/w OA / tendonitis than infection, but CRP was markedly elevated suggesting maybe elements of infection as well -doing well on keflex - continue -continue voltaren gel, PT/OT and supportive care Afib/HTN/CHF -No acute issues. rates controlled and BP acceptable for situation - Continue home coumadin - Continue home metoprolol 25mg BID and 50mg BID - Continue home Lasix 40mg GERD - Continue prilosec - no complaints Osteoarthritis - Continue home Tramadol 3 times a day - Continue calcium and Vit D - otherwise as above FEN/GI -No fluids indicated at this time - Diet: AHA heart healthy DVT prop: Coumadin Code: Full code CPR and ventilation (acute only not prolonged for maintenance) Dispo: MedSurg. DC eval ongoing, patient desires snf.
[2017-12-13] MEDS ORDERED: WARFARIN SOD 2 MG TAB PO ONE (18:00)
[2017-12-13 19:58] VITALS: BP 130/81; PULSE 103
[2017-12-13 22:46] VITALS: BP 116/80; PULSE 87; TEMP 36.2; O2SAT 93
[2017-12-14 07:01] LABS: INR 1.4 (0.9-1.1)
[2017-12-14 07:02] VITALS: BP 132/84; PULSE 76; TEMP 36.4; O2SAT 97
[2017-12-14] MEDS: TRAMADOL HCL 50 MG TAB PO PRN ×2 (08:40→16:44)
[2017-12-14] MEDS: DICLOFENAC SOD 1% GEL 100 GM TUBE EXT SCH ×4 (08:41→20:41)
[2017-12-14] MEDS: METOPROLOL TARTRATE 25 MG TAB PO SCH ×2 (08:41→20:42)
[2017-12-14] MEDS: PANTOprazole SOD 40 MG TAB PO SCH (08:41)
[2017-12-14] MEDS: CHOLECALCIFEROL 1000 INTER.UNIT TAB PO SCH (08:41)
[2017-12-14] MEDS: POTASSIUM CHLORIDE 20 MEQ TABCR PO SCH (08:42)
[2017-12-14] MEDS: FUROSEMIDE 40 MG TAB PO SCH (08:42)
[2017-12-14] MEDS: METOPROLOL TARTRATE 50 MG TAB PO SCH ×2 (08:43→20:43)
[2017-12-14] MEDS: CEPHALEXIN MONOHYDRATE 500 MG CAP PO SCH ×4 (08:43→20:42)
[2017-12-14 15:18] VITALS: BP 113/70; PULSE 81; TEMP 36.5; O2SAT 93
--- NOTE | 2017-12-14 16:10 | Progress Note ---
Subjective Date of Service: Dec 14, 2017. Subjective Pt evaluation today including: conversation w/ patient, physical exam, chart review, review of inpatient medication list feeling much better moving better no new complaints waiting on placement Problem List Medical Problems: (1) Ambulatory dysfunction Status: Acute (2) Cellulitis of left lower extremity Status: Acute (3) Dehydration Status: Acute (4) Diarrhea Status: Acute (5) Hypoxia Status: Acute (6) Pulmonary edema Status: Acute (7) Rapid atrial fibrillation Status: Acute (8) UTI (urinary tract infection) Status: Acute Review of Systems all other ROS otherwise negative except for as above Objective Vital Signs Date Time Temp Pulse Resp B/P (MAP) Pulse Ox O2 Delivery O2 Flow Rate FiO2 12/14/17 15:18 36.5 81 18 113/70 (84) 93 Room Air 12/14/17 08:00 Room Air 12/14/17 07:02 36.4 76 18 132/84 (100) 97 Room Air 12/13/17 22:46 36.2 87 16 116/80 (92) 93 Room Air 12/13/17 21:00 Room Air 12/13/17 19:58 103 130/81 (97) Physical Exam General Appearance: no apparent distress Eyes: EOMI ENT: hearing grossly normal Neck: trachea midline Respiratory/Chest: no respiratory distress, no accessory muscle use Extremities: normal range of motion, + pertinent finding (far less crepitis w movement - only sl at R elbow none at thumb or wrist. 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 PMhx of Afib, HTN, chronic venous insufficiency, CHF, GERD and osteoarthritis Arm pain, possible cellulitis R Upper Extremity vs. septic arthritis versus osteoarthritis flare -clinically appearing far more c/w OA / tendonitis than infection, but CRP was markedly elevated suggesting maybe elements of infection as well -doing well on keflex - continue for short course since difficult to disprove infection (?5-7 days) -continue voltaren gel, PT/OT and supportive care Afib/HTN/CHF -No active issues. rates controlled and BP acceptable for situation - Continue home coumadin - Continue home metoprolol 25mg BID and 50mg BID - Continue home Lasix 40mg GERD - Continue prilosec - no problems today Osteoarthritis - Continue home Tramadol 3 times a day - Continue calcium and Vit D - otherwise as above - seems to have been a major player in her symptoms FEN/GI -No fluids indicated at this time - Diet: AHA heart healthy DVT prop: Coumadin (INR low - gave extra yesterday, continue to follow) Code: Full code CPR and ventilation (acute only not prolonged for maintenance) Dispo: MedSurg. DC eval ongoing, patient desires prison.
[2017-12-14] MEDS: WARFARIN SOD 4 MG TAB PO SCH (16:45)
[2017-12-14 20:40] VITALS: BP 114/71; PULSE 97
[2017-12-14 23:41] VITALS: BP 138/96; PULSE 89; TEMP 36.8; O2SAT 95
[2017-12-15 05:33] LABS: HEMATOCRIT 34.7 % (37-47); HEMOGLOBIN 11.1 g/dL (12.0-16.0); MEAN CELL VOLUME 88.7 fL (80-100); MEAN CORPUSCULAR HEMOGLOBIN 28.4 pg (25-34); MEAN PLATELET VOLUME 8.8 fL (7.4-10.4); PLATELET COUNT 236 K/uL (130-400); RED CELL DISTRIBUTION WIDTH CV 16.2 % (11.5-14.5); RED CELL DISTRIBUTION WIDTH SD 53.1 fL (36.4-46.3); WHITE BLOOD COUNT 4.36 K/uL (4.8-10.8)
[2017-12-15 05:45] LABS: INR 1.6 (0.9-1.1)
[2017-12-15 05:59] LABS: CALCIUM 8.4 mg/dl (8.5-10.1); CREATININE 0.45 mg/dl (0.60-1.20); POTASSIUM 3.9 mmol/L (3.5-5.1)
[2017-12-15 07:34] VITALS: BP 129/78; PULSE 83; TEMP 36.9; O2SAT 95
[2017-12-15 08:00] VITALS: O2SAT 95
--- NOTE | 2017-12-15 08:06 | Family Medicine Progress Note ---
Progress Note Date of Service Dec 15, 2017. Subjective Pt evaluation today including: conversation w/ patient, physical exam, lab review, review of studies Pain: Improving R elbow and wrist pain and L shoulder pain PO Intake: Tolerating well Voiding: no voiding problems Patient in better spirits today, stating pain is improving. She is eager for discharge out of hospital. Constitutional: No fever, No chills Respiratory: No cough, No shortness of breath Cardiovascular: No chest pain Abdomen: + constipation Musculoskeletal: + joint pain All Other Systems: Reviewed and Negative Medications Current Inpatient Medications Medications (Trade) Dose Ordered Sig/Tonya Route Start Time Stop Time Status Last Admin Dose Admin Acetaminophen (Tylenol Tab) 650 mg Q4H PRN PO 12/11/17 18:30 01/10/18 18:29 12/12/17 09:26 650 MG Al Hydrox/Mg Hydrox/Simethicone (Maalox Max Susp) 15 ml Q4H PRN PO 12/11/17 18:30 01/10/18 18:29 Magnesium Hydroxide (Milk Of Magnesia Susp) 30 ml Q6H PRN PO 12/11/17 18:30 01/10/18 18:29 Polyethylene (Miralax Powder Packet) 17 gm DAILY PRN PO 12/11/17 18:30 01/10/18 18:29 12/15/17 15:36 17 GM Ondansetron HCl (Zofran Inj) 4 mg Q6H PRN IV 12/11/17 18:30 01/10/18 18:29 Levalbuterol (Xopenex Hfa Inhaler) 2 puffs Q6H PRN INH 12/11/17 18:30 01/10/18 18:29 Metoprolol Tartrate (Lopressor Tab) 25 mg BID PO 12/11/17 20:14 01/10/18 20:59 12/15/17 08:29 25 MG Metoprolol Tartrate (Lopressor Tab) 50 mg BID PO 12/11/17 20:14 01/10/18 20:59 12/15/17 08:29 50 MG Potassium Chloride (Klor-Con Tab) 20 meq DAILY PO 12/12/17 08:00 01/11/18 08:59 12/15/17 08:29 20 MEQ Cholecalciferol (Vitamin D Tab) 3,000 inter.unit DAILY PO 12/12/17 08:00 01/11/18 08:59 12/15/17 08:30 3,000 INTER.UNIT Pantoprazole Sodium (Protonix Tab) 40 mg QAM PO 12/12/17 08:00 01/11/18 08:59 12/15/17 08:29 40 MG Miscellaneous Information (Order Awaiting Action) 1 ea QS N/A 12/12/17 00:00 01/11/18 00:00 Furosemide (Lasix Tab) 40 mg DAILY PO 12/12/17 09:30 01/11/18 07:59 12/15/17 08:30 40 MG Tramadol HCl (Ultram Tab) 50 mg TID PRN PO 12/12/17 11:00 01/10/18 18:29 12/15/17 08:28 50 MG Diclofenac Sodium (Voltaren 1% Top Gel) 1 appln QID EXT 12/12/17 17:00 01/11/18 16:59 12/15/17 13:15 1 APPLN Warfarin Sodium (Coumadin Tab) 3 mg MoWeFr@1600 PO 12/12/17 16:00 01/11/18 15:59 12/15/17 15:37 3 MG Warfarin Sodium (Coumadin Tab) 4 mg SuTuThSa@1600 PO 12/13/17 16:00 01/10/18 20:59 12/14/17 16:45 4 MG Cephalexin Monohydrate (Keflex Cap) 500 mg QID PO 12/12/17 17:00 12/18/17 16:59 12/15/17 13:15 500 MG Objective Vital Signs Date Time Temp Pulse Resp B/P (MAP) Pulse Ox O2 Delivery O2 Flow Rate FiO2 12/15/17 07:34 36.9 83 16 129/78 (95) 95 12/14/17 23:41 36.8 89 18 138/96 (110) 95 Room Air 12/14/17 21:00 Room Air 12/14/17 20:40 97 114/71 (85) 12/14/17 15:18 36.5 81 18 113/70 (84) 93 Room Air Physical Exam General Appearance: WD/WN, no apparent distress Eyes: PERRL, EOMI ENT: hearing grossly normal Neck: no adenopathy Respiratory/Chest: lungs clear, normal breath sounds, no respiratory distress Cardiovascular: regular rate, rhythm, no murmur, + pertinent finding (Chronic venous insufficiency bilaterally) Abdomen: non tender, soft Extremities: non-tender, + pertinent finding (R elbow swelling, not warm to touch and without fluctuation/fluid in joint. Chronic venous insufficiency in LE bilaterally. Intact distal pulses, normal skin temp.) Neurologic/Psychiatric: alert, normal mood/affect, oriented x 3 Skin: normal color (aside from lower legs), warm/dry Lymphatic: no adenopathy Laboratory Results Last Resulted 12/15/17 05:19 Last Resulted 12/15/17 05:19 Past 24 Hours Test 12/15/17 05:19 Range/Units Prothromb Time International Ratio 1.6 H 0.9-1.1 Prothrombin Time 16.2 H 9.0-12.0 SECONDS Assessment and Plan 87-year-old female here for right arm pain, thought to be possible cellulitis. PMhx of Afib, HTN, chronic venous insufficiency, CHF, GERD and osteoarthritis Arm pain, possible cellulitis R Upper Extremity vs. septic arthritis versus osteoarthritis flare -clinically appearing far more c/w OA / tendonitis than infection, but CRP was markedly elevated suggesting possible element of infection as well -doing well on keflex - continue for short course since difficult to disprove infection (?5-7 days, on day 3.5) -continue voltaren gel, PT/OT and supportive care -[facility] Afib/HTN/Chronic Diastolic CHF - Rates controlled and BP acceptable for situation - Continue home coumadin - Continue home metoprolol 25mg BID and 50mg BID - Continue home Lasix 40mg GERD - Continue prilosec - no problems today Osteoarthritis - Continue home Tramadol 3 times a day - Continue calcium and Vit D - otherwise as above - seems to have been a major player in her symptoms FEN/GI -No fluids indicated at this time - Diet: AHA heart healthy DVTP: Coumadin (INR low - gave extra yesterday, continue to follow) Code: Full code CPR and ventilation (acute only not prolonged for maintenance) Dispo: MedSurg. [facility] Resident Tracking Resident Involvement: Resident Care Provided Care Provided: Adult Hospital Medicine Reviewed: Pt Seen/Exam by Me History denies any right arm pain. Constitutional: denies: fever General Appearance: no apparent distress Respiratory: no respiratory distress Extremities: other (right lower arm edema but no erythema noted) Neurologic/Psychiatric: alert, oriented x 3 Assessment/Plan Resident Physician Supervision Note: I independently interviewed and examined the patient and verified the baires history and physical, reviewed labs and image studies, discussed the case with the resident Dr. Carballo and agree with the findings and care plan.
[2017-12-15] MEDS: TRAMADOL HCL 50 MG TAB PO PRN ×2 (08:28→19:15)
[2017-12-15] MEDS: METOPROLOL TARTRATE 50 MG TAB PO SCH ×2 (08:29→19:55)
[2017-12-15] MEDS: POTASSIUM CHLORIDE 20 MEQ TABCR PO SCH (08:29)
[2017-12-15] MEDS: METOPROLOL TARTRATE 25 MG TAB PO SCH ×2 (08:29→19:55)
[2017-12-15] MEDS: PANTOprazole SOD 40 MG TAB PO SCH (08:29)
[2017-12-15] MEDS: FUROSEMIDE 40 MG TAB PO SCH (08:30)
[2017-12-15] MEDS: CEPHALEXIN MONOHYDRATE 500 MG CAP PO SCH ×4 (08:30→19:56)
[2017-12-15] MEDS: CHOLECALCIFEROL 1000 INTER.UNIT TAB PO SCH (08:30)
[2017-12-15] MEDS: DICLOFENAC SOD 1% GEL 100 GM TUBE EXT SCH ×4 (08:30→19:55)
--- NOTE | 2017-12-15 09:26 | Clinical Documentation Query ---
CLINICAL DOCUMENTATION QUERY 87 yo female admitted with cellulitis/septic arthritis. Patient has a history of CHF and takes Lasix 40mg PO at home. Echo from 06/2017 showed EF 55-60% and Grade II diastolic dysfunction. In your clinical opinion is this patient being managed for: (x ) Chronic diastolic (congestive) heart failure ( ) Not Agree ( ) Other explanation of clinical findings (No explanation is considered a No Response) ( ) Unable to determine ( ) Need to Discuss (Phone CDS or qliq) (No discussion is considered a No Response) The medical record reflects the following clinical findings, treatment, and risk factors. Clinical Indicators: As above Treatment: As above Risk Factors: Afib, HTN Please clarify and document your clinical opinion in the progress notes and discharge summary. Terms such as "probable", "suspected", "likely", "questionable", "possible", or "still to be ruled out" are acceptable. IF IN AGREEMENT, YOU MUST DOCUMENT ABOVE DIAGNOSTIC STATEMENT IN DAILY PROGRESS NOTES AND DISCHARGE SUMMARY. This document is not part of the patient's record. Thank You, Katey Ceballos RN, MSN [phone]
[2017-12-15 15:02] VITALS: BP 129/78; PULSE 83; O2SAT 95
[2017-12-15] MEDS: POLYETHYLENE (MIRALAX) 17 GM PACK PO PRN (15:36)
[2017-12-15] MEDS: WARFARIN SOD 3 MG TAB PO SCH (15:37)
[2017-12-15 23:39] VITALS: BP 123/84; PULSE 77; TEMP 36.5; O2SAT 96
[2017-12-16 06:03] LABS: HEMATOCRIT 34.6 % (37-47); HEMOGLOBIN 11.1 g/dL (12.0-16.0); MEAN CELL VOLUME 88.7 fL (80-100); MEAN CORPUSCULAR HEMOGLOBIN 28.5 pg (25-34); MEAN CORPUSCULAR HGB CONC 32.1 g/dl (32-36); MEAN PLATELET VOLUME 8.5 fL (7.4-10.4); PLATELET COUNT 262 K/uL (130-400); RED CELL DISTRIBUTION WIDTH CV 16.1 % (11.5-14.5); RED CELL DISTRIBUTION WIDTH SD 52.1 fL (36.4-46.3); WHITE BLOOD COUNT 5.19 K/uL (4.8-10.8)
[2017-12-16 06:11] LABS: INR 1.6 (0.9-1.1)
[2017-12-16 06:37] LABS: CALCIUM 8.8 mg/dl (8.5-10.1); CREATININE 0.49 mg/dl (0.60-1.20); POTASSIUM 4.1 mmol/L (3.5-5.1)
[2017-12-16 07:47] VITALS: BP 135/79; PULSE 73; TEMP 36.5; O2SAT 96
[2017-12-16] MEDS: PANTOprazole SOD 40 MG TAB PO SCH (08:17)
[2017-12-16] MEDS: DICLOFENAC SOD 1% GEL 100 GM TUBE EXT SCH ×4 (08:17→16:21)
[2017-12-16] MEDS: CEPHALEXIN MONOHYDRATE 500 MG CAP PO SCH ×3 (08:17→16:04)
[2017-12-16] MEDS: FUROSEMIDE 40 MG TAB PO SCH (08:18)
[2017-12-16] MEDS: METOPROLOL TARTRATE 25 MG TAB PO SCH (08:18)
[2017-12-16] MEDS: POTASSIUM CHLORIDE 20 MEQ TABCR PO SCH (08:18)
[2017-12-16] MEDS: CHOLECALCIFEROL 1000 INTER.UNIT TAB PO SCH (08:19)
[2017-12-16] MEDS: POLYETHYLENE (MIRALAX) 17 GM PACK PO PRN (08:29)
[2017-12-16] MEDS: METOPROLOL TARTRATE 50 MG TAB PO SCH (08:29)
--- NOTE | 2017-12-16 10:49 | Discharge Instructions ---
Discharge Instructions Date of Service Dec 16, 2017. Admission Reason for Admission: Cellulitis Discharge Discharge Diagnosis / Problem: Arm pain Discharge Goals Goal(s): Decrease discomfort, Improve function, Increase independence, Therapeutic intervention Activity Recommendations Activity Limitations: per Instructions/Follow-up section . Instructions / Follow-Up Instructions / Follow-Up During this admission, you were evaluated for arm pain and swelling. The cause of this swelling is unknown, and you were treated for pain as well as possible infection. Finish the course of antibiotic over the next few days as prescribed. Continue to treat the arthritis pain as directed with the tablets and voltaren gel. The rehab you receive at the facility will help with pain as well as increase your functional abilities. Your INR, which measures how thin your blood is, has been varied while in the hospital. You should continue to have this checked by a healthcare professional who can adjust your dose of warfarin. Continue your other home medications as prescribed. Current Hospital Diet Patient's current hospital diet: AHA Diet (Heart Healthy) Discharge Diet Recommended Diet: AHA Diet (Heart Healthy) Pending Studies Studies pending at discharge: no Medical Emergencies . Who to Call and When: Medical Emergencies: If at any time you feel your situation is an emergency, please call 911 immediately. . Non-Emergent Contact Non-Emergency issues call your: Primary Care Provider . . "Provider Documentation" section prepared by Nicole Carballo. .
[2017-12-16] MEDS ORDERED: KFL500 PO (10:52)
--- NOTE | 2017-12-16 10:53 | Discharge Summary ---
Discharge Summary Date of Service Dec 16, 2017. Discharge Summary Admission Date: Dec 11, 2017 at 18:36 Discharge Date: Dec 16, 2017 Discharge Disposition: shelter facility Principal Diagnosis: Arm pain, possible cellulitis R Upper Extremity vs. septic arthritis versus Problems/Secondary Diagnoses: Afib, HTN, chronic venous insufficiency, chronic diastolic CHF, GERD and osteoarthritis Immunizations: Have You Had Influenza Vaccine: Yes Influenza Vaccine Date: Feb 16, 2009 History of Tetanus Vaccine?: Unknown History of Pneumococcal: Yes Pneumococcal Date: Apr 13, 2001 History of Hepatitis B Vaccine: No Medication Reconciliation New Medications: Cephalexin Monohydrate (Cephalexin) 500 Mg Cap 500 MG PO QID for 2 Days, #8 CAP Continued Medications: Acetaminophen (Tylenol) 500 Mg Tab 1000 MG PO TID PRN for Pain Cholecalciferol (Vitamin D) 2,000 Unit Tab 3000 UNIT PO QAM Furosemide (Lasix) 40 Mg Tab 40 MG PO UD >150 LBS 2 TABS 143-150 1.5 TABS <143 1 TAB IF WEIGHT IS BELOW 140 0 TABS Levalbuterol Tartrate (Levalbuterol Tartrate Hfa) 45 Mcg/Act Aer 2 PUFFS INH Q6H PRN for SOB/Wheezing Metoprolol Tartrate (Lopressor) 25 Mg Tab 25 MG PO BID, #60 TAB 3 Refills take 25mg in addition to the 50mg for total of 75mg twice a day Metoprolol Tartrate (Lopressor) (Lopressor) 50 Mg Tab 50 MG PO BID Metoprolol Tartrate (Lopressor) (Lopressor) 25 Mg Tab 25 MG PO BID TAKE ADDITIONAL 25MG WITH 50MG TO MAKE A TOTAL OF 75MG Omeprazole (Prilosec) 20 Mg Capcr 20 MG PO QAM Potassium Chloride (Klor-Con M20) 20 Meq Tabcr 20 MEQ PO DAILY, #30 TABS 1 Refill Potassium Ext Rel (Klor-Con) 20 Meq Tabcr 20 MEQ PO DAILY Tramadol (Ultram) 50 Mg Tab 1 TAB PO HS PRN for Pain Warfarin Sod (Coumadin) 4 Mg Tab 4 MG PO UD [id number] Warfarin Sod (Jantoven) 3 Mg Tab 3 MG PO UD [id number] [Tramadol Er] () 100 MG PO QAM Discharge Exam Review of Systems: Constitutional: No fever, No chills Respiratory: No cough Abdomen: + constipation Musculoskeletal: + joint pain Physical Exam: General Appearance: WD/WN, no apparent distress ENT: hearing grossly normal Respiratory/Chest: no respiratory distress Cardiovascular: no edema, no murmur Abdomen / GI: non tender, soft Extremities: + swelling (R elbow joint), + pertinent finding (Chonic venout insufficiency) Neurologic/Psychiatric: no motor/sensory deficits, alert, oriented x 3 Hospital Course 87-year-old female presented to hospital with right arm pain and swelling, thought to be possible cellulitis. PMhx of Afib, HTN, chronic venous insufficiency, CHF, GERD and osteoarthritis Arm pain, possible cellulitis R Upper Extremity vs. septic arthritis vs. osteoarthritis flare -clinically appearing far more c/w OA / tendonitis than infection, but CRP was markedly elevated suggesting possible element of infection as well -doing well on keflex - continue for short course (5-7d) since difficult to disprove infection -continue voltaren gel, PT/OT and supportive care Afib/HTN/Chronic Diastolic CHF - Rates controlled and BP acceptable - Continue home coumadin, watch levels carefully--has needed several extra doses. - Continue home metoprolol 25mg BID and 50mg BID - Continue home Lasix 40mg GERD - Continue prilosec Osteoarthritis - Continue home Tramadol 3 times a day - Continue calcium and Vit D - otherwise as above - seems to have been a major player in her symptoms Code: Full code CPR and ventilation (acute only not prolonged for maintenance) Total Time Spent: Greater than 30 minutes This includes examination of the patient, discharge planning, medication reconciliation, and communication with other providers. Discharge Instructions Please refer to the electronic Patient Visit Report (Discharge Instructions) for additional information. Additional Copies To Rodríguez Coy M.D. Resident Tracking Resident Involvement: Resident Care Provided Care Provided: Adult Hospital Medicine Reviewed: Pt Seen/Exam by Me History no new concerns denies any arm pain, redness. no worsening of swelling Constitutional: denies: fever Respiratory: negative: short of breath Cardiovascular: denies chest pain General Appearance: no apparent distress (sitting in chair) Respiratory: lungs clear, no respiratory distress Cardiovascular: regular rate, rhythm Extremities: other (right lower arm edema +) Neurologic/Psychiatric: alert, oriented x 3 Skin Characteristics: warm/dry Assessment/Plan Resident Physician Supervision Note: I independently interviewed and examined the patient and verified the baires history and physical, reviewed labs and image studies, discussed the case with the resident Dr. Carballo and agree with the findings and care plan. Time spent in discharge 35 min
[2017-12-16 11:26] VITALS: BP 135/79; PULSE 73; TEMP 36.5; O2SAT 96
[2017-12-16] MEDS: WARFARIN SOD 4 MG TAB PO SCH (16:05)
== END 2017-12-16 17:42 | DRG 549 ==
LOC: C.EDB 11:03 → C.MS4W 18:36 → ENRESERV 19:03 → C.4E 12-15 07:04
PROVIDERS: ADMIT Family Medicine; ATTEND Family Medicine
DX: M00.811 Arthritis due to other bacteria, right shoulder (principal); L03.113 Cellulitis of right upper limb; I11.0 Hypertensive heart disease with heart failure; I50.32 Chronic diastolic (congestive) heart failure; I48.91 Unspecified atrial fibrillation; K21.9 Gastro-esophageal reflux disease without esophagitis; M19.011 Primary osteoarthritis, right shoulder; Z79.01 Long term (current) use of anticoagulants; Z79.899 Other long term (current) drug therapy; Z91.041 Radiographic dye allergy status; Z88.6 Allergy status to analgesic agent

== ENCOUNTER → 2017-12-19 | Outpatient (CLI) | payer BC ==
[~2017-12-19] MED LIST changes: -AZIT-57 PO; +FRS/40 PO; +KFL500 PO; -LSX20 PO; +METO25TA56 PO; +POTA-639 PO; -PRD10 PO; +TRAMADOL ER PO; +WARF3TAB6 PO
[2017-12-19 09:36] LABS: INR 1.4 (0.9-1.1)
== END ==
LOC: C.LABVPSUA 08:57
PROVIDERS: ATTEND Internal Medicine Critical Care Medicine
DX: I48.91 Unspecified atrial fibrillation (principal)

== ENCOUNTER → 2017-12-25 | Outpatient (CLI) | payer BC ==
[2017-12-25 18:25] LABS: HEMOGLOBIN 11.1 g/dL (12.0-16.0); MEAN CELL VOLUME 89.5 fL (80-100); MEAN CORPUSCULAR HEMOGLOBIN 28.4 pg (25-34); MEAN CORPUSCULAR HGB CONC 31.7 g/dl (32-36); MEAN PLATELET VOLUME 8.9 fL (7.4-10.4); PLATELET COUNT 372 K/uL (130-400); RED CELL DISTRIBUTION WIDTH CV 16.4 % (11.5-14.5); RED CELL DISTRIBUTION WIDTH SD 53.8 fL (36.4-46.3); WHITE BLOOD COUNT 5.25 K/uL (4.8-10.8)
== END | disposition home or self-care (01) ==
LOC: C.LABSPEC 17:59
PROVIDERS: ATTEND Internal Medicine Geriatric Medicine
DX: Z01.89 Encounter for other specified special examinations (principal)